=== PATIENT | male | born 1960 | race African-American/Black ===

== ENCOUNTER 2024-05-26 20:44 | Outpatient (REF) | payer MEDICARE, MEDICAID, SELFPAY ==
[2024-05-26 21:22] LABS: INR 4.85
== END 2024-05-26 20:45 | disposition home or self-care (01) ==
LOC: LAB 20:44
PROVIDERS: PCP Internal Medicine; Visit Provider Internal Medicine
DX: I50.32 Chronic diastolic (congestive) heart failure (principal)
CPT/HCPCS: 36415; 85610

== ENCOUNTER 2024-06-01 15:07 | Outpatient (REF) | payer MEDICARE, MEDICAID, SELFPAY ==
[2024-06-01 15:54] LABS: INR 1.37; Prothrombin Time 14.1 sec (9.0-11.6)
== END 2024-06-01 15:08 | disposition home or self-care (01) ==
LOC: LAB 15:07
PROVIDERS: PCP Internal Medicine; Visit Provider Internal Medicine
DX: I63.50 Cerebral infarction due to unspecified occlusion or stenosis of unspecified cerebral artery (principal)
CPT/HCPCS: 36415; 85610

== ENCOUNTER 2024-07-09 14:26 | Outpatient (REF) | payer MEDICARE, MEDICAID, SELFPAY ==
[2024-07-09 15:01] LABS: INR 1.04
== END 2024-07-09 14:27 | disposition home or self-care (01) ==
LOC: LAB 14:26
PROVIDERS: PCP Internal Medicine; Visit Provider Internal Medicine
DX: I63.50 Cerebral infarction due to unspecified occlusion or stenosis of unspecified cerebral artery (principal)
CPT/HCPCS: 36415; 85610

== ENCOUNTER 2024-07-12 13:07 | Outpatient (REF) | payer MEDICARE, MEDICAID, SELFPAY ==
[2024-07-12 13:42] LABS: INR 1.11; Prothrombin Time 11.6 sec (9.0-11.6)
== END 2024-07-12 13:08 | disposition home or self-care (01) ==
LOC: LAB 13:07
PROVIDERS: PCP Internal Medicine; Visit Provider Internal Medicine
DX: I63.50 Cerebral infarction due to unspecified occlusion or stenosis of unspecified cerebral artery (principal)
CPT/HCPCS: 36415; 85610

== ENCOUNTER 2024-08-06 12:17 | Outpatient (REF) | payer MEDICARE, MEDICAID, SELFPAY ==
[2024-08-06 12:48] LABS: INR 3.66; Prothrombin Time 34.1 sec (9.0-11.6)
== END 2024-08-06 12:18 | disposition home or self-care (01) ==
LOC: LAB 12:17
PROVIDERS: PCP Internal Medicine; Visit Provider Internal Medicine
DX: I63.50 Cerebral infarction due to unspecified occlusion or stenosis of unspecified cerebral artery (principal)
CPT/HCPCS: 36415; 85610

== ENCOUNTER 2024-08-18 14:12 | Outpatient (REF) | payer MEDICARE, MEDICAID, SELFPAY ==
[2024-08-18 14:42] LABS: INR 2.36
== END 2024-08-18 14:13 | disposition home or self-care (01) ==
LOC: LAB 14:12
PROVIDERS: PCP Internal Medicine; Visit Provider Internal Medicine
DX: I48.19 Other persistent atrial fibrillation (principal)
CPT/HCPCS: 36415; 85610

== ENCOUNTER 2024-08-20 11:48 | Outpatient (REF) | payer MEDICARE, MEDICAID, SELFPAY ==
--- OUTSIDE RECORDS SUMMARY | 2024-02-16 04:30 | XMS_ITS ---
Author Organization The [facility] in [place] Address [address] [place] [address] Care Team Providers Care Earth Moving Technician Name Role Phone Emanuel GRADY, Bryon Primary Care Provider Unavailab Andrew Vincent Unavailable [phone] REASON FOR VISIT 4 month f/u Encounters Encounter Location Date Provider Diagnosis [facility] [address] [address] 02/16/2024 Andrew Baptiste Plan Of Treatment No Information Progress Notes * PRINCESS Danny RDOB:1960 (63 yo M)Acc No.[id number]:02/16/2024 UNLOCKED PROGRESS NOTE Follow Up Patient: Herberth MEZAy Juanita Provider: Shameka Baptiste MD :1960 A ge:63 Y S ex:Male Date:02/16/2024 Address:[address] [place], [place] [address] Pcp:Bryon Castellanso MD Subjective: * Chief Complaints: * 1 . 4 month f/u. * Medical History: Objective: * Vitals: Assessment: Plan: * Treatment: * * Electronic signature of Andrew Baptiste MD, [id number] on 08/20/2024 at 11:53 AM EDT Sign off status: Pending Visit Status: N /S N/C (No Show/No Charge) * Provider: Shameka Baptiste MD Date: 1 04/17/2023 Generated for Printi ng/Faxing/eTransmitting on: 0 08/20/2024 11:53 AM EDT
--- OUTSIDE RECORDS SUMMARY | 2024-02-25 09:30 | XMS_ITS ---
Author Organization The [facility] in [place] Address [address] [place] [address] Care Team Providers Care Television News Producer Name Role Phone Emanuel GRADY, Bryon Primary Care Provider Unavailab Andrew Vincent Unavailable [phone] Encounters Encounter Location Date Provider Diagnosis [facility] [address] [place] [address] 02/25/2024 Andrew Baptiste Plan Of Treatment No Information Progress Notes * Danny SÁNCHEZ RDOB:1960 (63 yo M)Acc No.[id number]:02/25/2024 UNLOCKED PROGRESS NOTE Follow Up Patient: Herberth MEZAy Juanita Provider: Shameka Baptiste MD :1960 A ge:63 Y S ex:Male Date:02/25/2024 Address:[address] [place], [place] [id number] Pcp:Bryon Castellanos MD Subjective: * Chief Complaints: * * Medical History: Objective: * Vitals: Assessment: Plan: * Treatment: * * Electronic signature of Andrew Baptiste MD, [id number] on 08/20/2024 at 11:52 AM EDT Sign off status: Pending Visit Status: R /S (Rescheduled) * Provider: Shameka Baptiste MD Date: 1 04/27/2023 Generated for Printi ng/Faxing/eTransmitting on: 0 08/20/2024 11:52 AM EDT
--- OUTSIDE RECORDS SUMMARY | 2024-08-20 11:52 | XMS_ITS | Encounter Summary ---
Author Organization [facility] Address [address] [place] [address] Care Team Providers Care Truck Driver Rubbish Collector Name Role Phone Unavailable Primary Care Provider Unavailabl e Encounter Details Date Type Department Care Team (Late st Contact Info) Description 01/28/2024 Abstract [facility] [address] [place] [id number] Unallocated, Noms Provider, [address] [place] [address] Social History Tobacco Use Types Packs/Day Years Used Date Smoking Tobacco: Never Assessed Sex and Gender Information Value Date Recorded Sex Assigned at Not on file Legal Sex Male 3:32 PM EST Gender Identity Not on file Sexual Orientation Not on file documented as of this encounter Plan of Treatment Not on file documented as of this encounter Visit Diagnoses Not on filedocumented in this encounter
--- OUTSIDE RECORDS SUMMARY | 2024-08-20 11:52 | XMS_ITS | Encounter Summary ---
Author Organization [facility] Address [address] [place] [address] Care Team Providers Care Fairing Man Name Role Phone Unavailable Primary Care Provider Unavailabl e Encounter Details Date Type Department Care Team (Late st Contact Info) Description 06/28/2024 Abstract [facility] [address] [place] [address] Unallocated, Noms Provider, [address] [place] [address] Social History Tobacco Use Types [...]
--- OUTSIDE RECORDS SUMMARY | 2024-08-20 11:52 | XMS_ITS | Encounter Summary ---
Author Organization [facility] Address [address] [place] [address] Care Team Providers Care Ore Feeder Name Role Phone Unavailable Primary Care Provider Unavailabl e Encounter Details Date Type Department Care Team (Late st Contact Info) Description 12/31/2023 Clinisync Result Encounter [facility] External Department Unsolicited Provider, Generic External Data Social History Tobacco Use Types Packs/Day Years Used Date Smoking Tobacco: Never Assessed Sex and Gender Information Value Date Recorded Sex Assigned at Not on file Legal Sex Male 3:32 PM EST Gender Identity Not on file Sexual Orientation Not on file documented as of this encounter Plan of Treatment Not on file documented as of this encounter Procedures Procedure Name Priority Date/Time Associated Diagnosis Comments FL MODIFIED BARIUM SWALLOW W VIDEO 12/31/2023 3:15 PM EDT documented in this encounter Results * FL MODIFIED BARIUM SWALLOW W VIDEO (12/31/2023 3:15 PM EDT) Anatomical Region Laterality Modality Other 12/31/2023 3:15 PM EDT Narrative 12/31/2023 3:19 PM EDT EXAMINATION: MODIFIED BARIUM SWALLOW WAS PERFORMED IN CONJUNCTION WITH SPEECH PATHOLOGY SERVICES TECHNIQUE: Under fluoroscopic evaluation cineradiography/videoradiography recordings were performed in conjunction with the speech-language pathologist (HEALTH CARE FACILITY ADMINISTRATOR). Various liquid, solid and/or semi-solid barium preparations were used to assess swallowing function. FLUOROSCOPY DOSE AND TYPE: Radiation Exposure Index: DAP [id number], COMPARISON: None HISTORY: ORDERING SYSTEM PROVIDED HISTORY: Other tracheostomy complication (HCC) FINDINGS: [place] thick liquid: Given by teaspoon and straw. Spillage into the piriform sinuses but no laryngeal penetration or aspiration. Thin liquid: Given by straw there is trace laryngeal penetration but no aspiration. Minimal pooling in vallecula and piriform sinuses. Puree, soft solid, cookie: No laryngeal penetration or aspiration. IMPRESSION: Trace laryngeal penetration of thin liquid when given by straw but no aspiration. Other consistencies well-tolerated. Please see separate speech pathology report for full discussion of findings and recommendations. Interpreted by: Bryon Coto MD Signed by: Bryon Coto MD 12/31/23 Final result Procedure Note Radiology, Radiologist, - 12/31/2023 EXAMINATION: MODIFIED BARIUM SWALLOW WAS PERFORMED IN CONJUNCTION WITH SPEECHPATHOLOGY SERVICES TECHNIQUE: Under fluoroscopic evaluation cineradiography/videoradiographyrecordings were performed in conjunction with the speech-language pathologist(HEALTH CARE FACILITY ADMINISTRATOR). Various liquid, solid and/or semi-solid barium preparations were used to assess swallowing function. FLUOROSCOPY DOSE AND TYPE: Radiation Exposure Index: DAP 71.899fYjjl0, COMPARISON: None HISTORY: ORDERING SYSTEM PROVIDED HISTORY: Other tracheostomy complication (HCC) FINDINGS: [place] thick liquid: Given by teaspoon and straw. Spillage into thepiriform sinuses but no laryngeal penetration or aspiration. Thin liquid: Given by straw there is trace laryngeal penetration but no aspiration. Minimal pooling in vallecula and piriform sinuses. Puree, soft solid, cookie: No laryngeal penetration or aspiration. IMPRESSION: Trace laryngeal penetration of thin liquid when given by straw but no aspiration. Other consistencies well-tolerated. Please see separate speech pathology report for full discussion offindings and recommendations. Interpreted by: Bryon Coto MD Signed by: Bryon Coto MD 12/31/23 Final result Generic External Data Provider [facility] Final Result documented in this encounter Visit Diagnoses Not on filedocumented in this encounter
--- OUTSIDE RECORDS SUMMARY | 2024-08-20 11:52 | XMS_ITS | Encounter Summary ---
Author Organization [facility] Address [address] [place] [address] Care Team Providers Care Rating Clerk Name Role Phone Unavailable Primary Care Provider Unavailabl e Encounter Details Date Type Department Care Team (Late st Contact Info) Description 01/01/2024 Abstract [facility] [address] [place] [address] Unallocated, Noms Provider, [address] [place] [address] Social History Tobacco Use Types [...]
--- OUTSIDE RECORDS SUMMARY | 2024-08-20 11:52 | XMS_ITS | Encounter Summary ---
Author Organization [facility] Address [address] [place] [address] Care Team Providers Care Management Information Systems Director Name Role Phone Unavailable Primary Care Provider Unavailabl e Encounter Details Date Type Department Care Team (Late st Contact Info) Description 05/05/2024 Abstract [facility] [address] [place] [address] Unallocated, Noms Provider, [address] [place] [address] Social History Tobacco Use Types [...]
--- OUTSIDE RECORDS SUMMARY | 2024-08-20 11:52 | XMS_ITS | Encounter Summary ---
Author Organization [facility] Address [address] [place] [address] Care Team Providers Care Tank Insulator Rubber Name Role Phone Unavailable Primary Care Provider Unavailabl e Encounter Details Date Type Department Care Team (Late st Contact Info) Description 10/08/2023 Abstract [facility] 112 [facility] 110 [place] [address] Bryon Castellanos MD 112 [facility] 110 [place], [place] [id number] Social History Tobacco Use Types Packs/Day Years [...]
--- OUTSIDE RECORDS SUMMARY | 2024-08-20 11:52 | XMS_ITS | Encounter Summary ---
Author Organization [facility] Address [address] [place] [address] Care Team Providers Care Digital Retoucher Name Role Phone Unavailable Primary Care Provider Unavailabl e Encounter Details Date Type Department Care Team (Late st Contact Info) Description 01/28/2024 Abstract [facility] [address] [place] [address] Unallocated, Noms Provider, [address] [place] [address] Social History Tobacco Use Types [...]
--- OUTSIDE RECORDS SUMMARY | 2024-08-20 11:52 | XMS_ITS | Encounter Summary ---
Author Organization [facility] Address [address] [place] [address] Care Team Providers Care Frame Table Operator Name Role Phone Unavailable Primary Care Provider Unavailabl e Encounter Details Date Type Department Care Team (Late st Contact Info) Description 06/16/2023 Orders Only [facility] [address] [facility] 110 [place] [address] Bryon Castellanos MD [address] [facility] 110 [place], [place] [address] Social History Tobacco Use Types Packs/Day Years [...] Procedure Name Priority Date/Time Associated Diagnosis Comments XR CHEST 2 VIEWS Routine 06/16/2023 8:07 AM EDT documented in this encounter Results * XR chest 2 views (06/16/2023 8:07 AM EDT) Anatomical Region Laterality Modality Chest Radiographic Shayna ging us Bryon Castellanos MD IMG XR PROCEDURES Final Result documented in this encounter Visit Diagnoses Not on filedocumented in this encounter
--- OUTSIDE RECORDS SUMMARY | 2024-08-20 11:52 | XMS_ITS | Encounter Summary ---
Author Organization [facility] Address [address] [place] [address] Care Team Providers Care Steam Clean Machine Operator Name Role Phone Unavailable Primary Care Provider Unavailabl e Encounter Details Date Type Department Care Team (Late st Contact Info) Description 08/18/2024 Clinisync Result Encounter [facility] External Department Unsolicited Bryon Castellanos MD 112 [facility] 110 [place] [address] Social History Tobacco Use Types Packs/Day Years [...] Procedure Name Priority Date/Time Associated Diagnosis Comments [facility] PROTHROMBIN TIME INR W/O COUM Routine 08/18/2024 1:35 PM EDT documented in this encounter Results * (ABNORMAL) [facility] PROTHROMBIN TIME INR W/O COUM (08/18/2024 1:35 PM EDT) PROTHROMBIN TIME 23.0(H) 9.0 - 11.6 sec TBH TBH INR 2.36 TBH Comment: DESIRED INR: 2.0-3.0 CONDITIONS NOT LISTED BELOW 2.5-3.5 FOR PROSTHETIC HEART VALVE REPLACEMENT 2.5-3.5 RECURRENT THROMBOSIS 08/18/2024 1:35 PM EDT 08/18/2024 2:24 PM EDT Narrative [facility] - 08/18/2024 4:21 PM EDT [facility] DROP OFF us Bryon Castellanos MD [facility] Final Result [facility] documented in this encounter Visit Diagnoses Not on filedocumented in this encounter
--- OUTSIDE RECORDS SUMMARY | 2024-08-20 11:52 | XMS_ITS | Encounter Summary ---
Author Organization [facility] Address [address] [place] [address] Care Team Providers Care Mini Baccarat Dealer Name Role Phone Unavailable Primary Care Provider Unavailabl e Encounter Details Date Type Department Care Team (Late st Contact Info) Description 08/06/2024 Clinisync Result Encounter [facility] External Department Unsolicited Bryon Castellanos MD 112 [facility] 110 [place] [address] Social History Tobacco Use Types Packs/Day Years [...] [facility] PROTHROMBIN TIME INR W/O COUM Routine 08/06/2024 11:20 AM EDT documented in this encounter Results * (ABNORMAL) [facility] PROTHROMBIN TIME INR W/O COUM (08/06/2024 11:20 AM EDT) PROTHROMBIN TIME 34.1(H) 9.0 - 11.6 sec TBH TBH INR 3.66 TBH Comment: DESIRED INR: 2.0-3.0 CONDITIONS NOT LISTED BELOW 2.5-3.5 FOR PROSTHETIC HEART VALVE REPLACEMENT 2.5-3.5 RECURRENT THROMBOSIS 08/06/2024 11:2 0 AM EDT 08/06/2024 12:24 PM EDT Narrative [facility] - 08/06/2024 12:49 PM EDT [facility] DROP OFF us Bryon Castellanos MD [facility] Final [facility] documented in this encounter Visit Diagnoses Not on filedocumented in this encounter
--- OUTSIDE RECORDS SUMMARY | 2024-08-20 11:52 | XMS_ITS | Encounter Summary ---
Author Organization Josse Ordoñez Diannacarlos alberto [facility] Address [address] [place] [address] Care Team Providers Care Manager Philosophy Name Role Phone Bryon Castellanos MD Primary Care Provider [phone] Reason for Visit * Reason Onset Date Comments OTHER 07/28/2024 Encounter Details Date Type Department Care Team (Late st Contact Info) Description 07/28/2024 Telephone [facility] [address] [place] [address] Johny Abad MD [address] [id number] OTHER Social History Tobacco Use Types Packs/Day Years Used Date Smoking Tobacco: Former Cigarettes Passive Smoke Exposure: Never Smokeless Tobacco: Never Alcohol Use Standard Drinks/Week Comments Not Currently 0 (1 standard drink = 0.6 oz pur e alcohol) [facility] Utilities Answer Date Recorded In the past 12 months has [facility] electric, gas, oil, or water [employer] in [employer] threatened to shut off services in your home? No 10/02/2023 Hunger Vital Sign Answer Date Recorded Within the past 12 months, y ou worried that your food would run out before you got the money to buy more. Never true 10/02/19 24 Within the past 12 months, t he food you bought just didn't last and you didn't have money to get more. Never true 10/02/2023 PRAPARE - Transportation Answer Date Re corded In the past 12 months, has l ack of transportation kept you from medical appointments or from getting medications? No 09/21 In the past 12 months, has l ack of transportation kept you from meetings, work, or from getting things needed for daily living? No 10/02/2023 Housing Stability Vital Sign Answer Marquise e Recorded In the last 12 months, was t here a time when you were not able to pay the mortgage or rent on time? No 10/02/2023 In the last 12 months, how many places have you lived? 1 10/02/2023 In the last 12 months, was t here a time when you did not have a steady place to sleep or slept in a group home (including now)? No 10/02/2023 Interpersonal Safety ([facility] HRSN) Answer Date Recorded How often does anyone, frances florez family and friends, physically hurt you? Patient unable to answer 04/18/2023 How often does anyone, frances florez family and friends, scream or curse at you? Not on file 04/18/2023 How often does anyone, frances florez family and friends, insult or talk down to you? Not on file 04/18/2023 How often does anyone, frances florez family and friends, threaten you with harm? Not on file 04/18/2023 Food Insecurity Answer Date Recorded Within the past 12 months, y ou worried that your food would run out before you got the money to buy more. 1 10/02/2023 Within the past 12 months, t he food you bought just didn't last and you didn't have money to get more. 1 10/02/2023 Interpersonal Safety Domain Source: IP Abuse Scr eening Answer Date Recorded Physical abuse Denies 07/26/2024 Verbal abuse Denies 07/26/2024 Emotional abuse Denies 07/26/2024 Financial abuse Denies 07/26/2024 Sexual abuse Denies 07/26/2024 Sex and Gender Information Value Date Recorded Sex Assigned at Not on file Legal Sex Male 6:01 PM EST Gender Identity Not on file Sexual Orientation Not on file documented as of this encounter Plan of Treatment Upcoming Encounters Date Type Department Care Team (Latest Contact Info) Description 09/08/2024 12:30 PM EDT Hospital Encounter [facility] [address] [place] [address] Johny Abad MD [address] [address] 09/08/2024 12:30 PM EDT - 09/08/2024 1:[address] [facility] [address] [place] [address] Johny Abad MD 2222 [facility]800 [place] [address] DIRECT LARYNGOSCOPY Scheduled Procedures Name Priority Associated Diagnoses Date/Ti me LARYNGOSCOPY MICRO Tracheostomy dependent (HCC) 09/08/2024 12:30 PM EDT TRACHEOTOMY Tracheostomy dependent (HCC) 09/08/2024 12:30 PM EDT documented as of this encounter Visit Diagnoses Not on filedocumented in this encounter Additional Health Concerns Infection Onset Date 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
--- OUTSIDE RECORDS SUMMARY | 2024-08-20 11:52 | XMS_ITS | Encounter Summary ---
Author Organization [facility] Address [address] [place] [address] Care Team Providers Care Fiber Product Cutting Machine Operator Name Role Phone Unavailable Primary Care Provider Unavailabl e Encounter Details Date Type Department Care Team (Late st Contact Info) Description 06/29/2024 Abstract [facility] [address] [place] [address] Unallocated, Noms Provider, [address] [place] [address] Social History Tobacco Use Types [...]
--- OUTSIDE RECORDS SUMMARY | 2024-08-20 11:52 | XMS_ITS | Encounter Summary ---
Author Organization [facility] Address [address] [place] [address] Care Team Providers Care Gelatin Maker Utility Name Role Phone Unavailable Primary Care Provider Unavailabl e Encounter Details Date Type Department Care Team (Late st Contact Info) Description 06/09/2023 Abstract [facility] [address] [facility] 110 [place] [address] Rao Browning MD 112 [facility] 110 [place], [place] [id number] Social History Tobacco Use Types Packs/Day Years [...]
--- OUTSIDE RECORDS SUMMARY | 2024-08-20 11:52 | XMS_ITS | Encounter Summary ---
Author Organization [facility] Address [address] [place] [address] Care Team Providers Care Quality Control Tech Raw Materials Name Role Phone Unavailable Primary Care Provider Unavailabl e Encounter Details Date Type Department Care Team (Late st Contact Info) Description 06/28/2024 Abstract [facility] [address] [place] [address] Unallocated, Noms Provider, [address] [place] [address] Social History Tobacco Use Types [...]
--- OUTSIDE RECORDS SUMMARY | 2024-08-20 11:52 | XMS_ITS | Clinical Summary ---
Author Organization [facility] Address [address] [place] [address] Care Team Providers Care Multimedia Editor Name Role Phone Unavailable Primary Care Provider Unavailabl e Encounters Date Type Department Care Team Description 08/18/2024 Clinisync Result Encounter NOMS External Department Unsolicited Bryon Castellanos MD 08/06/2024 Clinisync Result Encounter NOMS External Department Unsolicited Bryon Castellanos MD 07/12/2024 Clinisync Result Encounter NOMS External Department Unsolicited Bryon Castellanos MD 07/09/2024 Clinisync Result Encounter NOMS External Department Unsolicited Bryon Castellanos MD 06/29/2024 Abstract [facility] [address] [facility] [address] [place] [phone] Unallocated, Noms MD Christy 06/28/2024 Abstract [facility] [address] [facility] [address] [place] [address] Unallocated, Noms MD Christy 06/28/2024 Abstract [facility] [address] [facility] [address] [place] [address] Unallocated, Noms ProviderMD 06/28/2024 Abstract [facility] [address] [facility] [address] [place] [address] Unallocated, Noms MD Christy 06/01/2024 Clinisync Result Encounter NOMS External Department Unsolicited Bryon Castellanos MD 05/26/2024 Clinisync Result Encounter NOMS External Department Unsolicited Bryon Castellanos MD from Last 3 Months Social History Tobacco Use Types Packs/Day Years Used Date Smoking Tobacco: Never Assessed Sex and Gender Information Value Date Recorded Sex Assigned at Not on file Legal Sex Male 3:32 PM EST Gender Identity Not on file Sexual Orientation Not on file Plan of Treatment Not on file Procedures Procedure Name Priority Date/Time Associated Diagnosis Comments [facility] PROTHROMBIN TIME INR W/O COUM Routine 08/18/2024 1:35 PM EDT [facility] PROTHROMBIN TIME INR W/O COUM Routine 08/06/2024 11:20 AM EDT [facility] PROTHROMBIN TIME INR W/O COUM Routine 07/12/2024 11:57 AM EDT [facility] PROTHROMBIN TIME INR W/O COUM Routine 07/09/2024 1:34 PM EDT [facility] PROTHROMBIN TIME INR W/O COUM Routine 06/01/2024 1:37 PM EDT [facility] PROTHROMBIN TIME INR W/O COUM Routine 05/26/2024 8:04 PM EST from Last 3 Months Results * (ABNORMAL) [facility] PROTHROMBIN TIME INR W/O COUM (08/18/2024 1:35 PM EDT) Only the most recent of6 resultswithin the time period is included. PROTHROMBIN TIME 23.0(H) 9.0 - 11.6 sec TBH TBH INR 2.36 TBH Comment: DESIRED INR: 2.0-3.0 CONDITIONS NOT LISTED BELOW 2.5-3.5 FOR PROSTHETIC HEART VALVE REPLACEMENT 2.5-3.5 RECURRENT THROMBOSIS 08/18/2024 1:35 PM EDT 08/18/2024 2:24 PM EDT Narrative CLINISYNC - 08/18/2024 4:21 PM EDT CITIZEN OF [facility] [facility] DROP OFF us Bryon Castellanos MD CLINISYDESTINI Final Result CLINIS[facility] TB from Last 3 Months Insurance MEDICAID [place] [employer] MEDICARE ADVANTAGE
--- OUTSIDE RECORDS SUMMARY | 2024-08-20 11:52 | XMS_ITS | Encounter Summary ---
Author Organization [facility] Address [address] [place] [address] Care Team Providers Care Extractions Technician Name Role Phone Unavailable Primary Care Provider Unavailabl e Encounter Details Date Type Department Care Team (Late st Contact Info) Description 10/13/2023 Abstract [facility] 112 [facility] [address] [place] [address] Bryon Castellanos MD 112 [facility] [address] [place], [place] [id number] Social History Tobacco Use Types Packs/Day Years [...]
--- OUTSIDE RECORDS SUMMARY | 2024-08-20 11:52 | XMS_ITS | Clinical Summary ---
Author Organization [facility] Address [address] [place] [address] Care Team Providers Care Foxing Painter Name Role Phone Bryon Castellanos MD Primary Care Provider [phone] Allergies No known active allergies Medications acetaminophen (TYLENOL) 325 MG tablet 2 tablets by PEG Tube route every 4 hours as needed for Pain or Fever 05/14/19 24 Active Additional Information Patient taking differently:650 mgOralEVERY 4 HOURS PRN, Pain, Fever, Reported on 01/26/2024 doxazosin (CARDURA) 2 MG tablet Take 1 tablet by mouth at bedtime 05/14/19 24 Active Additional Information Patient taking differently: 4 mgOral Nightly,Hold SBP< 100, Reported on 07/26/2024 polyethylene glycol (GLYCOLAX) 17 g packet 1 packet by Per G Tube route daily as needed for Constipation 05/14/19 24 Active Additional Information Patient taking differently:17 gOral DAILY, Reported on 07/26/2024 thiamine mononitrate (THIAMINE) 100 MG tablet Take 1 tablet by mouth daily Give through PEG tube 05/14/19 24 Active Additional Information Patient taking differently:100 mg Oral DAILY,(No instructions reported), Reported on 07/26/2024 Vitamin D (CHOLECALCIFERO L) 25 MCG (1000 UT) TABS tablet 5 tablets by PEG Tube route daily 05/14/19 24 Active Additional Information Patient taking differently:5,000 UnitsOralDAILY, Reported on 07/26/2024 Handicap Placard MISC by Does not apply route Duration: 1 year / Dx: Stroke 1 each 05/14/19 Active ipratropium 0.5 mg-albuterol 2.5 mg (DUONEB) 0.5-2.5 (3) MG/3ML SOLN nebulizer solution Inhale 3 mLs into the lungs every 4 hours as needed Active aspirin 81 MG EC tablet 1 tablet daily Activ e cimetidine (TAGAMET) 300 MG tablet Take 1 tablet by mouth 2 times daily For inappropriate sexual behavior. 09/29/19 24 Active ALPRAZolam (XANAX) 0.5 MG tablet Take 1 tablet by mouth in the morning, at noon, and at bedtime. Stop date 10/15/2023 Active bisacodyl 5 MG EC tablet Use as instructed from your physicians office for your colonoscopy prep. 4 tablet 12/24/19 24 Active furosemide (LASIX) 20 MG tablet Take 1 tablet by mouth 2 times daily Active traMADol (ULTRAM) 50 MG tablet Take 1 tablet by mouth every 6 hours as needed for Pain. Max Daily Amount: 200 mg Active citalopram (CELEXA) 10 MG tablet Take 2 tablets by mouth daily Active levalbuterol (XOPENEX) 1.25 MG/3ML nebulizer solution Take 3 mLs by nebulization every 6 hours as needed for Wheezing Active pantoprazole sodium (PROTONIX) 40 MG PACK packet Take 1 packet by mouth 2 times daily (before meals) Active warfarin (COUMADIN) 6 MG tablet Take 7 mg by mouth at bedtime Active magnesium oxide (MAG-OX) 400 (240 Mg) MG tablet 1 tablet by Per G Tube route daily 05/14/19 24 025 Discontin ued(Thera py completed ) baclofen (LIORESAL) 5 MG tablet 1 tablet by PEG Tube route 3 times daily as needed (muscle spasms) 05/14/19 24 025 Discontin ued(Thera py completed ) GUAIFENESIN ER PO Take 800 mg by mouth every 12 hours as needed (mucus) 025 Discontin ued(Thera py completed ) SENNA PO Take 1 tablet by mouth at bedtime 025 Discontin ued(Thera py completed ) amLODIPine (NORVASC) 10 MG tablet Take 1 tablet by mouth daily 12/12/19 24 025 Discontin ued(Thera py completed ) ipratropium 0.5 mg-albuterol 2.5 mg (DUONEB) 0.5-2.5 (3) MG/3ML SOLN nebulizer solution Inhale 3 mLs into the lungs in the morning, at noon, and at bedtime trach 025 Discontin ued(Thera py completed ) Active Problems Problem Noted Date Diagnosed Date 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 Chronic respiratory failure with hypoxia 024 Tracheal stenosis following tracheostomy 024 Glottic edema 10/02/2023 Other tracheostomy complication 10/02/2023 Right hemiparesis 05/12/2023 Depression 04/26/2023 Urinary tract infection without hematuria 2023 Hemiplegia and hemiparesis f ollowing cerebral infarction affecting right dominant side 04/18/2023 Fever 03/16/2023 Constipation 03/15/2023 Pneumonia of right lower lobe due to infectious organism 03/15/2023 S/P percutaneous endoscopic gastrostomy (PEG) tube placement 03/15/2023 Oropharyngeal dysphagia 03/14/2023 Copious oral secretions 03/12/2023 Chronic hyponatremia 03/11/2023 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 Acute on chronic respiratory failure with hypoxia and hypercapnia 03/10/2023 Laryngeal edema 03/04/2023 Stridor 03/04/2023 Acute respiratory failure with hypoxia and hyper capnia 03/04/2023 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 Intracerebral hemorrhage, nontraumatic 3 Encounters Date Type Department Care Team Description 07/28/2024 Telephone [facility] [address] [place] [address] Johny Abad MD OTHER 07/27/2024 11:59 PM EDT Anesthesia Event [facility] [address] [place], [place] [id number] Chung Tony RN 07/26/2024 Travel from Last 3 Months Family History Medical History Relation Name Comments No Known Problems Father Cancer Maternal Grandmother No Known Problems Mother Relation Name Status Comments Father Maternal Grandmother Mother Social History Tobacco Use Types Packs/Day Years Used Date Smoking Tobacco: Former Cigarettes Passive Smoke Exposure: Never Smokeless Tobacco: Never Tobacco Cessation:Counseling Given: Not Answered Alcohol Use Standard Drinks/Week Comments Not Currently 0 (1 standard drink = 0.6 oz pur e alcohol) [facility] Utilities Answer Date Recorded In the past 12 months has th e electric, gas, oil, or water company threatened to shut off services in your [...] place to sleep or slept in a fpc (including now)? No 10/02/2023 Interpersonal Safety ([facility] HRSN) Answer Date Recorded How often does [...] on file Sexual Orientation Not on file Last Filed Vital Signs Vital Sign Reading Time Taken Comments Blood Pressure 99/61 01/28/2024 4:00 PM EST Pulse 69 01/28/2024 4:00 PM EST Temperature 36 C (96.8 F) 01/28/2024 4:00 PM EST Respiratory Rate 16 01/28/2024 4:00 PM EST Oxygen Saturation 100% 01/28/2024 4:00 PM EST Inhaled Oxygen Concentration - - Weight 99.8 kg (220 lb) 01/28/2024 10:25 AM EST Height 175.3 cm (5' 9 ) 01/28/2024 10:25 AM EST Body Mass Index 32.49 01/28/2024 10:25 AM EST Plan of Treatment Upcoming Encounters Date Type Department Care Team (Latest Contact Info) Description 09/08/2024 12:30 PM EDT Hospital Encounter [address] [address] Johny Abad MD [address] [address] 09/08/2024 12:30 PM EDT - 09/08/2024 1:50 PM EDT Surgery [facility] [address] [place] [address] [place] [address] [place] [address] DIRECT LARYNGOSCOPY Scheduled Procedures Name Priority Associated Diagnoses Date/Ti me LARYNGOSCOPY MICRO Tracheostomy dependent (HCC) 09/08/2024 12:30 PM EDT TRACHEOTOMY Tracheostomy dependent (HCC) 09/08/2024 12:30 PM EDT Health Maintenance Due Date Last Done Comments Depression Monitoring 1973 HIV screen 1976 Hepatitis C screen 09/28/1979 Pneumococcal 50+ years Vacci ne (1 of 2 - PCV) 1980 Colonoscopy 2006 Colorectal Cancer Screen 2006 FIT/FOBT: Average risk 2006 Fecal-DNA (Cologuard): [place] risk 2006 Sigmoidoscopy/CT colonography 2006 Shingles vaccine (1 of 2) 09/28/2011 Respiratory Syncytial Virus (RSV) or age 60 yrs+ (1 - Risk 60-74 years 1-dose series) 2021 COVID-19 Vaccine ( - 2023-2 5 season) 2023 Annual Wellness Visit (Medicare Advantage) 03/24/2024 Flu vaccine (Season Ended) 10/22/202401/27, 01/17/2014 Diabetes screen 03/21/2026 03/21/2023, 03/03/2023 DTaP/Tdap/Td vaccine (2 - Td or Tdap) 03/02/2027 03/02/2017 Lipids 03/05/2028 03/05/2023, 03/03/2023 Hepatitis A vaccine Aged Out No longe r eligible based on patient's age to complete this topic Hepatitis B vaccine Aged Out No longe r eligible based on patient's age to complete this topic Hib vaccine Aged Out No longer eligi ble based on patient's age to complete this topic Meningococcal (ACWY) vaccine Aged Out No longer eligible based on patient's age to complete this topic Meningococcal B vaccine Aged Out No l onger eligible based on patient's age to complete this topic Polio vaccine Aged Out No longer elig ible based on patient's age to complete this topic Procedures Procedure Name Priority Date/Time Associated Diagnosis Comments HEMOGLOBIN A1C Routine 03/21/2023 3:30 AM EST LIPID PANEL [employer] Label Print 03/05/2023 5:37 AM EST from Last 3 Months or Most Recently Relevant to Health Maintenance Results * Hemoglobin A1C (03/21/2023 3:30 AM EST) Hemoglobin A1C 5.4 4.0 - 6.0 % 03/21/2023 3:30 AM EST [facility] Estimated Avg Glucose 108 mg/dL 03/21/2023 3:30 AM EST [facility] Comment: The ADA and AACC recommend providing the estimated average glucose result to permit better patient understanding of their HBA1c result. 03/21/2023 3:30 AM EST us Lex North MD CHEMISTRY ORDERABLES Iva l Result [facility] [address] [facility] [place] [address], [facility] [phone] [employer] [address] [id number], [facility] [phone] * Lipid Panel (03/05/2023 5:37 AM EST) Cholesterol 183 <200 mg/dL 03/05/2023 5:37 AM EST [facility] Comment: Cholesterol Guidelines: <200 Desirable 200-240 Borderline >240 Undesirable HDL 58 >40 mg/dL 03/05/2023 5:37 AM EST [employer] Comment: HDL Guidelines: <40 Undesirable 40-59 Borderline >59 Desirable LDL Cholesterol 110 0 - 130 mg/dL 03/05/2023 5:37 AM EST [employer] Comment: LDL Guidelines: <100 Desirable 100-129 Near to/above Desirable 130-159 Borderline >159 Undesirable Direct (measured) LDL and calculated LDL are not interchangeable tests. Chol/HDL Ratio 3.2 <5 03/05/2023 5:37 AM EST [employer] Comment: Triglycerides 73 <150 mg/dL 03/05/2023 5:37 AM EST [employer] Comment: Triglyceride Guidelines: <150 Desirable 150-199 Borderline 200-499 High >499 Very high Based on AHA Guidelines for fasting triglyceride, December 2011. Blood BLOOD SPECIMEN / Unknown 03/05/2023 5:37 AM EST 03/05/2023 5:37 AM EST us Harriett Swift DO CHEMISTRY ORDERABLES Final Res ult [place] [address], [facility] [phone] from Last 3 Months or Most Recently Relevant to Health Maintenance Additional Health Concerns Infection Onset Date Last Indicated MRSA Comment:Nasal- 09/202303/13/2023 10/02/2023 Insurance [facility] [place]ICARE [place] [facility] MEDICARE on file [facility] MEDICARE on file [place] [facility] MEDICARE on file [facility] MEDICARE on [place] [facility] [place] [address] [facility] [place] [id number] Advance Directives * Full Code (Latest Code Status on File) Date Activated Date Inactivated Comments 10/02/2023 1:41 PM 10/08/2023 1:26 PM * Full Code Date Activated Date Inactivated Comments 04/18/2023 4:08 PM 05/14/2023 8:[address] [facility] as per acute but confirm with patient/family * Full Code Date Activated Date Inactivated Comments 03/03/2023 2:39 PM 03/20/2023 8:56 PM * Full Code Date Activated Date Inactivated Comments 03/03/2023 2:26 PM 03/03/2023 2:39 PM * Full Code Date Activated Date Inactivated Comments 03/03/2023 2:26 PM 03/03/2023 2:26 PM Care Teams Foxing Painter Relationship Specialty Start Date End Date Bryon Castellanos MD [address] [facility] [address] [place] [address] PCP - General Internal Medicine 10/07/23
--- OUTSIDE RECORDS SUMMARY | 2024-08-20 11:52 | XMS_ITS | Encounter Summary ---
Author Organization [facility] Address [address] [place] [address] Care Team Providers Care International Representative Name Role Phone Unavailable Primary Care Provider Unavailabl e Encounter Details Date Type Department Care Team (Late st Contact Info) Description 06/04/2023 External Result Encounter [facility] [address] [facility] [address] [place] [phone] Bryon Castellanos MD [address] [facility] [address] [place], [place] [id number] Social History Tobacco Use Types Packs/Day Years [...] Procedure Name Priority Date/Time Associated Diagnosis Comments SWALLOW MOTILITY FUNCTION 06/04/2023 1:02 PM EDT documented in this encounter Results * SWALLOW MOTILITY FUNCTION (06/04/2023 1:02 PM EDT) Anatomical Region Laterality Modality Radiographic Shayna ging 06/04/2023 1:02 PM EDT Narrative 06/04/2023 1:01 PM EDT THIS EXAM WAS PERFORMED AT [facility] ([place], [place]) CLINICAL INFORMATION: Oropharyngeal dysphagia TECHNIQUE: FL SWALLOW MOTILITY FUNCTION Evaluation the pharynx was obtained in conjunction with speech pathology. Patient swallowed substances of various consistency in conjunction with barium. There is deep laryngeal penetration with nectar thickened liquids. Aspiration appreciated with thin liquids. Patient. Remainder the substances without difficulty. 1 minute 20 seconds fluoroscopy time utilized. 8 images acquired. Cumulative fluoroscopic dose air Kerma: 4.4 mGy. IMPRESSION: Aspiration with thin liquids and deep laryngeal penetration with nectar thickened liquids. Finalized by Dakota Singleton MD on 06/04/2023 1:01 PM Procedure Note Radiology, Radiologist, MD - 06/04/2023 THIS EXAM WAS PERFORMED AT [facility] ([place], [place]) CLINICAL INFORMATION: Oropharyngeal dysphagia TECHNIQUE: FL SWALLOW MOTILITY FUNCTION Evaluation the pharynx was obtained in conjunction with speech pathology.Patient swallowed substances of various consistency in conjunction withbarium. There is deep laryngeal penetration with nectar thickenedliquids. Aspiration appreciated with thin liquids. Patient. Remainderthe substances without difficulty. 1 minute 20 seconds fluoroscopy timeutilized. 8 images acquired. Cumulative fluoroscopic dose air Kerma: 4.4mGy. IMPRESSION: Aspiration with thin liquids and deep laryngeal penetration with nectarthickened liquids. Finalized by Dakota Singleton MD on 06/04/2023 1:01 PM Bryon Castellanos MD IMG XR PROCEDURES Final Result documented in this encounter Visit Diagnoses Not on filedocumented in this encounter
--- OUTSIDE RECORDS SUMMARY | 2024-08-20 11:52 | XMS_ITS | Encounter Summary ---
Author Organization [facility] Address [address] [place] [address] Care Team Providers Care Materials And Processes Manager Name Role Phone Unavailable Primary Care Provider Unavailabl e Encounter Details Date Type Department Care Team (Late st Contact Info) Description 06/28/2024 Abstract [facility] [address] [facility] [address] [place] [phone] Unallocated, Noms Provider, [address] [place] [address] Social History Tobacco Use Types [...]
--- OUTSIDE RECORDS SUMMARY | 2024-08-20 11:53 | XMS_ITS | Encounter Summary ---
Author Organization [facility] Address [address] [place] [address] Care Team Providers Care Tuber Helper Name Role Phone Unavailable Primary Care Provider Unavailabl e Encounter Details Date Type Department Care Team (Late st Contact Info) Description 04/02/2024 Abstract [facility] [address] [facility] [address] [place] [phone] Unallocated, Noms Provider, [address] [place] [address] Social History Tobacco Use Types [...]
--- OUTSIDE RECORDS SUMMARY | 2024-08-20 11:53 | XMS_ITS | Clinical Summary ---
Author Organization [facility] Address [address] [place] [address] Phone Care Team Providers Care Insulation Sprayer Name Role Phone Unavailable Primary Care Provider Unavailabl e Allergies No known active allergies Medications acetaminophen (TYLENOL) 325 MG tablet Administer 2 tablets (650 mg total) per tube every 4 (four) hours as needed for Temp > or equal to 101F (38.3C), mild pain or headaches. 4 Active amLODIPine (NORVASC) 10 MG tablet Administer 1 tablet (10 mg total) per tube in the morning. 4 Active bisacodyl (DULCOLAX) 10 MG suppository Insert 1 suppository (10 mg total) into the rectum daily as needed for constipation. 4 Active cholecalciferol (VITAMIN D3) 125 MCG (5000 UT) tablet tablet Administer 1 tablet (5,000 Units total) per tube in the morning. 4 Active citalopram (CeleXA) 20 MG tablet Administer 1 tablet (20 mg total) per tube in the morning. 4 Active enoxaparin (LOVENOX) 40 MG/0.4ML solution prefilled syringeIndicatio ns:Deep Vein Thrombosis Prophylaxis Inject 0.4 mL (40 mg total) under the skin daily Indications: Treatment to Prevent Deep Vein Thrombosis. 4 Active famotidine (PEPCID) 20 MG tablet Administer 1 tablet (20 mg total) per tube in the morning and 1 tablet (20 mg total) before bedtime. 4 Active ipratropium-albu terol (DUO-NEB) 0.5-2.5 mg/3 mL nebulizer Inhale 3 mL Every 6 hours as needed. for wheezing. 4 Active labetalol (NORMODYNE) 200 MG tablet Administer 1 tablet (200 mg total) per tube every 8 (eight) hours. 4 Active magnesium oxide 400 (240-250 Mg) MG tablet Administer 1 tablet (400 mg total) per tube in the morning. 4 Active polyethylene glycol (MIRALAX) 17 g packet Administer 17 g per tube in the morning. 4 Active senna (SENOKOT) 8.6 MG tablet Administer 1 tablet (8.6 mg total) per tube nightly. 4 Active silodosin (RAPAFLO) 4 MG capsule capsule Administer 2 capsules (8 mg total) per tube nightly. 4 Active thiamine 100 MG tablet Administer 1 tablet (100 mg total) per tube in the morning. 4 Active oxyCODONE (ROXICODONE) 10 MG tabletIndication s:Acute Pain Administer 1 tablet (10 mg total) per tube every 6 (six) hours as needed for severe pain Indications: Acute Pain. Max Daily Amount: 40 mg 12 tablet 4 Active oxyCODONE (ROXICODONE) 5 MG immediate release tabletIndication s:Acute Pain Administer 1 tablet (5 mg total) per tube every 6 (six) hours as needed for moderate pain Indications: Acute Pain. 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 Acute hypoxemic and hypercapnic respiratory fail ure 03/04/2023 Edema of larynx 03/04/2023 Intrapontine hemorrhage 03/04/2023 Stridor 03/04/2023 Spontaneous cerebral hemorrhage 03/03/2023 Immunizations Immunization Administration Dates Next Due Pfizer SARS-CoV-2 Vaccination 03/20/2023(Deferre d: Not available - NA) Family History Medical History Relation Name Comments No Known Problems Father No Known Problems Mother Relation Name Status Comments Father Mother Social History Tobacco Use Types Packs/Day Years Used Date Smoking Tobacco: Every Day Cigarettes Smokeless Tobacco: Never Tobacco Cessation:Ready to Q uit: Not Asked; Counseling Given: Not Answered Alcohol Use Standard Drinks/Week Comments Yes 0 (1 standard drink = 0.6 oz pur e alcohol) Sex and Gender Information Value Date Recorded Sex Assigned at Not on file Legal Sex Male 2:11 PM EST Gender Identity Not on file Sexual Orientation Not on file Last Filed Vital Signs Vital Sign Reading Time Taken Comments Blood Pressure 96/50 04/18/2023 1:53 PM EST Pulse 83 04/18/2023 1:53 PM EST Temperature 36.2 C (97.1 F) 04/18/2023 8:03 AM EST Respiratory Rate 16 04/18/2023 1:47 PM EST Oxygen Saturation 97% 04/18/2023 1:47 PM EST Inhaled Oxygen Concentration - - Weight 81.2 kg (179 lb) 04/18/2023 4:00 AM EST Height 170.2 cm (5' 7 ) 03/20/2023 8:48 PM EST Body Mass Index 28.04 03/20/2023 8:48 PM EST Plan of Treatment Health Maintenance Due Date Last Done Comments CT Colonography 1961 Colonoscopy 1961 Colorectal Cancer Screening 1961 FIT-DNA (Cologuard) 1961 FIT 1961 FOBT 1961 Sigmoidoscopy 1961 Annual Visit Topic 1962 MMR Vaccines (1 of 1 - Stand louie series) 1962 Hepatitis C Screening 09/28/1979 Pneumococcal Vaccine: Pediat rics (0 to 5 years) and At-Risk Patients (6 to 64 Years) (1 of 4 - PCV) 1980 PSA Test 2016 DTaP/Tdap/Td Vaccines (2 - T d or Tdap) 03/02/2027 03/02/2017 HIB Vaccines Aged Out No longer eligi ble based on patient's age to complete this topic HPV Vaccines Aged Out No longer eligi ble based on patient's age to complete this topic Hepatitis A Vaccines Aged Out No long er eligible based on patient's age to complete this topic Hepatitis B Vaccines Aged Out No long er eligible based on patient's age to complete this topic IPV Vaccines Aged Out No longer eligi ble based on patient's age to complete this topic Meningococcal Vaccine Aged Out No giancarlo emmanuelle eligible based on patient's age to complete this topic Additional Health Concerns Infection Onset Date Last Indicated MRSA Comment:Chen - 02/2023 Added from external infection. Source: [facility] 03/13/2023 Advance Directives * Full Resuscitation (Latest Code Status on File) Date Activated Date Inactivated Comments 03/20/2023 4:47 PM 04/18/2023 5:50 PM Question Answer Comments I have discussed this order with the patient or his/her surrogate and have received informed consent. Yes
--- OUTSIDE RECORDS SUMMARY | 2024-08-20 11:53 | XMS_ITS | Patient Health Record ---
Author Organization [facility] [place] Address [address] [place] [address] Care Team Providers Care Shingle Cutter Name Role Phone Bryon Castellanos MD Primary Care Provider Unavailab Andrew Vincent Unavailable [phone] Eunice Garcia Unavailable [phone] Allergies No Known Allergies Reason For Referral No Information Medications Medication SIG (Take, Route, Frequency, Duration) Notes Start Date End Date Status GlycoLax 17 GM/SCOOP 1 scoop mixed with 8 ounces of fluid Orally Once a day Active guaiFENesin ER 600 MG 1 tablet as needed Orally every 12 hrs Active Furosemide 20 MG 1 tablet Orally Once a day Active Flexeril Not-Taking amLODIPine Besylate 10 MG 1 tablet Orall y Once a day Not-Taking Gabapentin 800 mg tablet N ot-Taking Aspirin 81 Active NexIUM 40 MG 1 capsule Orally Onc e a day for 30 day(s) 03/05/2016 Not-Taking Baclofen 5 MG 1 tablet as needed Orally Once a day Not-Taking Omeprazole 40 MG 1 capsule Orally BID for 30 day(s) 02/27/2016 Not-Taking CeleBREX 100 MG capsule DAILY Not-Taking oxyCODONE-Acetaminophen PRN Not-Taking Citalopram Hydrobromide 20 MG 1 tablet Orally Once a day Active PriLOSEC 40 MG 1 capsule Orally BID for 30 day(s) 05/03/2016 Not-Taking Doxazosin Mesylate 4 MG 1 tablet Orally Once a day Active Vashe Wound Therapy - as directed Heel Lining Paster ally BID for 14 days 05/03/2016 Not-Taking Famotidine 20 MG 1 tablet at bedtime as needed Orally Once a day Not-Taking Voltaren 1 % apply to back as needed Transdermal as needed for 30 days 05/03/2016 Not-Taking Ipratropium-Albuterol 0.5-2.5 (3) MG/3ML 3 mL as needed Inhalation BID for 30 days 03/31/2024 Active Augmentin 875-125 MG 1 tablet Orally shawn ry 12 hrs for 10 day(s) 10/08/2016 Not-Taking Cyclobenzaprine HCl Not-Taking Xanax 0.5 MG 1 tablet Orally Twic e a day Active Augmentin 875-125 MG 1 tablet Orally BID for 14 days 06/11/2016 Not-Taking traMADol HCl 50 MG 1 tablet as needed Orally Once a day Active Levalbuterol HCl 1.25 MG/3ML 3 mL as needed Inhalation every 8 hrs Active Labetalol HCl 200 MG 1 tablet Orally Twi ce a day Not-Taking Magnesium Oxide 400 MG 1 tablet as neede d Orally Once a day Not-Taking Oxygen - as directed 2 liters Active Senna 8.6 MG 2 tablets at bedtime as needed Orally Once a day Active Thiamine Mononitrate 100 MG 1 tablet Orally Once a day Active Tracheostomy Care - as directed patient has trach Active Tylenol 325 MG 1 tablet as needed Orally every 4 hrs Active Vitamin D (Cholecalciferol) 50 MCG (1999) 2 capsules Orally Once a day Active Ipratropium-Albuterol 0.5-2.5 (3) MG/3ML 3 mL as needed Inhalation every 6 hrs Active Social History Tobacco Use: Social History Observation Description Date Details (start date - stop date) Former Smoker NA - NA Tobacco Control (Standard) Question Answer Notes Tobacco use: Former smoker Problems Problem Type SNOMED Code ICD Code Onset Dates Problem Status W/U Status Risk Notes Problem 78785149 Other chronic pain (G89.29) Active confirmed Problem 88798736 Edema of larynx (J38.4) Active confirmed Problem 317863686 Other diseases o f larynx (J38.7) Active confirmed Problem 183520807 Chronic respiratory failure with hypoxia (J96.11) Active confirmed Problem 921152327 Dorsalgia, unspecified (M54.9) Active confirmed Problem 49012704 Dysphagia, oropharyngeal phase (R13.12) Active confirmed Problem 957181020 Personal history of Methicillin resistant Staphylococcus aureus infection (Z86.14) Active confirmed Problem 070761686 Personal history of nicotine dependence (Z87.891) Active confirmed Problem 764309954 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 Abad 3. chronic trach #6 XLTD with only ENT trach cahnge every 6 months in OR only Problem Hypertension (89731215) HTN (hypertension) (I10) Active confirmed Problem CVA - Cerebrovascular accident (889529953) CVA (cerebral vascular accident) (I63.9) Active confirmed Problem Vitamin D deficiency (29053952) Vitamin D deficiency (E55.9) Active confirmed Problem Chronic constipation (785533452) Chronic constipation (K59.00) Active confirmed Problem Vitamin D deficiency (86462502) Hypovitaminosis D (E55.9) Active confirmed Problem 867227275 Pre-procedural laboratory examination (Z01.812) Active confirmed Problem Leukocytosis (348618877) Leukocytosis (D72.829) Active confirmed Problem Anemia of chronic disease (062052520) Anemia of chronic disease (D63.8) Active confirmed Problem 422391809 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 Problem 234383102 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) Active confirmed Vital Signs Heart Rate 88 /min 03/31/2024 Blood pressure diastolic 80 mm Hg 03/31/2024 Oximetry 95 % 03/31/2024 Height 69 in 03/31/2024 Blood pressure systolic 130 mm Hg 03/31/2024 Weight 234 lbs 03/31/2024 BMI 34.55 kg/m2 03/31/2024 Encounters Encounter Location Date Provider Diagnosis [facility] [address] [place] [address] 03/31/2024 Eunice Garcia Acute embolism and thrombosis of right iliac vein I82.421 ; Chronic respiratory failure with hypoxia J96.11 ; Tracheostomy status Z93.0 ; Personal history of nicotine dependence Z87.891 and Other specified diseases of upper respiratory tract J39.8 Assessments Encounter Date Diagnosis (ICD Code) Assessment Notes Treatment Notes Treatment Clinical Notes Section Notes 03/31/2024 Acute embolism and thrombosis of right iliac vein (ICD-10 - I82.421) 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 Kc He is following with Dr. Kc vascular with minimum of 6 months of Eliquis planned. No history of PE. Possible plans for lifelong AC therapy given immobility status. 03/31/2024 Chronic respiratory failure with hypoxia (ICD-10 - J96.11) He is using 2 L at night. Currently he does not require oxygen during the day. 03/31/2024 Tracheostomy status (ICD-10 - Z93.0) Placed by Dr. Abad 03/14/2023. chronic trach #6 XLTD with only ENT trach cahnge every 6 months in OR only Tracheostomy is being managed by Dr. Abad with every 6-month change in the OR. We will plan for twice daily DuoNeb treatments with instillation and suctioning following respiratory treatments a minimum of twice a day and as needed. He may also do DuoNeb treatments as needed throughout the day every 4 hours. Would hold off on scopolamine patch or Robinul as when he was in rehab he did have issues when using scopolamine patch of thickened mucus with concern for mucous plugging. Management of tracheostomy otherwise through ENT office. 03/31/2024 Personal history of nicotine dependence (ICD-10 - Z87.891) 03/31/2024 Other specified diseases of upper respiratory tract (ICD-10 - J39.8) tracheal stenosis/trach eomalacia/subg lottic stenosis, Dr. Abad ENT Plan Of Treatment No Information Insurance Providers Payer Name Payer Address Payer Phone Subscriber Number Group Number Insured Name Patient Relationship to Insured Coverage Start Date Coverage End Date [employer] ADV PLAN [address] [place] [address] [id number] Danny Green Self - patient is the insured 0 MED[place]ID [place] 2ND INS [address] [place], [place] [id number] Danny Green Self - patient is the insured 0 Medical (General) History Medical History History ICD Code Snoring History of esophageal reflux Granular cell tumor, pancreatitis Trach care Surgical History Surgery Date(Month/Year) tracheostomy Previous EGD procedure with bronchoscopy Surgical / procedural 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
--- OUTSIDE RECORDS SUMMARY | 2024-08-20 11:53 | XMS_ITS | Encounter Summary ---
Author Organization [facility] Address [id number] [address] [place] [address] Care Team Providers Care Reservationist Name Role Phone Bryon Castellanos MD Primary Care Provider [phone] Encounter Details Date Type Department Care Team (Late st Contact Info) Description 07/16/2024 Orders Only [facility] [address] [place] [phone] Ref Prov, [place] [address] Social History Tobacco Use Types Packs/Day Years Used Date Smoking Tobacco: Every Day Cigarettes Smokeless Tobacco: Never Alcohol Use Standard Drinks/Week Comments Yes 21 (1 standard drink = 0.6 oz pu re alcohol) [facility] Utilities Answer Date Recorded In the past 12 months has e electric, gas, oil, or water company threatened to shut off services in your home? No 06/25/2024 PRAPARE - Transportation Answer Date Re corded In the past 12 months, has l ack of transportation kept you from medical appointments or from getting medications? No 06/2024 In the past 12 months, has l ack of transportation kept you from meetings, work, or from getting things needed for daily living? No 06/25/2024 Housing Instability Answer Date Recorde d Are you worried or concerned that in the next two months you may not have stable housing that you own, rent or stay in as a part of a household? No 06/25/2024 Childcare Answer Date Recorded Childcare Unknown 09/02/2018 Employment Answer Date Recorded Employment Unknown 09/02/2018 Hunger Screening Answer Date Recorded Within the past 12 months we worried whether our food would run out before we got money to buy more. Never True 06/25/2024 Within the past 12 months th e food we bought just didn't last and we didn't have money to get more. Never True 06/25/2024 Purpose - Life Answer Date Recorded Purpose and direction in life Unknown Sex and Gender Information Value Date Recorded Sex Assigned at Not on file Legal Sex Male 11:38 AM EDT Gender Identity Not on file Sexual Orientation Not on file documented as of this encounter Plan of Treatment Upcoming Encounters Date Type Department Care Team (Late st Contact Info) Description 08/31/2024 10:30 AM EDT Appointment [facility] [address] [place] [id number] Kasia Kc MD [address] [place] [address] 09/06/2024 10:00 AM EDT Office Visit [facility] [address] [place] [address] Elizabeth Bourgeois DO [address] [place] [address] documented as of this encounter Goals Goal Patient Goal Type Associated Problems Recent Progress Patient-Stated? Author return to [facility] General Yes Tracy Tolbert LSW Note: Evaluation of progress towards goal: under assessment documented as of this encounter Procedures Procedure Name Priority Date/Time Associated Diagnosis Comments XR CHEST 1 VW Routine 07/16/2024 9:40 AM EDT documented in this encounter Results * X-ray chest 1 view (07/16/2024 9:40 AM EDT) Anatomical Region Laterality Modality Body, Chest N/A Computed Radiogr aphy us Not In System Ref Prov IMG DIAGNOSTIC IMAGING OR DERABLES Final Result documented in this encounter Visit Diagnoses Not on filedocumented in this encounter Care Teams Reservationist Relationship Specialty Start Date End Date Bryon Castellanos MD [address] [place] [address] PCP - General Internal Medicine 09/06/23 documented as of this encounter
--- OUTSIDE RECORDS SUMMARY | 2024-08-20 11:53 | XMS_ITS | Clinical Summary ---
Author Organization [facility] tem Address [id number] [address] [place] [address] Care Team Providers Care Pigment And Lacquer Mixer Name Role Phone Bryon Castellanos MD Primary Care Provider [phone] Allergies No known active allergies Medications ipratropium-alb uteroL (DUONEB) 0.5 mg-3 mg(2.5 mg base)/3 mL nebulizer Inhale 3 mL every 4 (four) hours as needed for shortness of breath. 4 Active doxazosin (CARDURA) 2 mg tablet Take 2 tablets (4 mg total) by mouth nightly. Hold for SBP <100, P<60 4 Active cholecalciferol , vitamin D3, 5,000 units tablet 1 tablet (5,000 Units total) in the morning. 4 Active furosemide (LASIX) 20 mg tablet Take 1 tablet (20 mg total) by mouth daily. Active aspirin 81 mg Take 1 tablet (81 mg total) by mouth in the morning. Active acetaminophen (TYLENOL) 325 mg tablet Take 2 tablets (650 mg total) by mouth every 4 (four) hours as needed for pain or headaches (Temperature greater than 38.3 C). 4 Active guaiFENesin (MUCINEX) 600 mg tablet extended release 12hr Take 1 tablet (600 mg total) by mouth every 12 (twelve) hours. 4 Active thiamine HCl (VITAMIN B-1) 100 mg tablet Take 1 tablet (100 mg total) by mouth in the morning. 4 Active bisacodyL (DULCOLAX) 10 mg suppository Insert 1 suppository (10 mg total) into the rectum daily as needed for constipation. 4 Active levalbuterol (XOPENEX) 1.25 mg/3 mL nebulizer solutionIndicat ions:Acute on chronic respiratory failure with hypoxia and hypercapnia (CMS-HCC) Inhale 3 mL (1.25 mg total) by nebulization every 6 (six) hours as needed for wheezing or shortness of breath. 4 Active citalopram (CeleXA) 20 mg tablet Take 1 tablet (20 mg total) by mouth in the morning. 4 Active traMADoL (ULTRAM) 50 mg tablet Take 1 tablet (50 mg total) by mouth every 6 (six) hours as needed for pain. Active ALPRAZolam (XANAX) 0.5 mg tablet Take 1 tablet (0.5 mg total) by mouth 3 (three) times a day as needed for anxiety. Active warfarin (COUMADIN) 7.5 mg tablet Take 1 tablet (7.5 mg total) by mouth in the evening. Active polyethylene glycol (GLYCOLAX) 17 gram packet Take 17 g by mouth in the morning. Active pantoprazole (PROTONIX) 40 mg EC tablet Take 1 tablet (40 mg total) by mouth in the morning and at bedtime for 60 days. 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 Leg swelling 02/18/2024 Acute deep vein thrombosis ( DVT) of proximal vein of right lower extremity 02/18/2024 Anasarca 02/17/2024 Other tracheostomy complication 10/02/2023 Hypomagnesemia 08/13/2023 Cramp and spasm 08/13/2023 Anemia, unspecified 05/14/2023 Cognitive communication deficit 05/14/2023 Abnormal posture 05/14/2023 Vitamin D deficiency, unspecified 05/14/2023 Pain, unspecified 05/14/2023 Other general symptoms and signs 05/14/2023 Other abnormalities of gait and mobility 024 Nontraumatic intracerebral hemorrhage in brain s tem 05/14/2023 Nontraumatic intracerebral hemorrhage, unspecifi ed 05/14/2023 Essential (primary) hypertension 05/14/2023 Generalized muscle weakness 05/14/2023 Right hemiparesis 05/12/2023 Depression 04/26/2023 Urinary tract infection without hematuria 2023 Hemiplegia and hemiparesis f ollowing cerebral infarction affecting right dominant side 04/18/2023 Fever 03/16/2023 S/P percutaneous endoscopic gastrostomy (PEG) tube placement 03/15/2023 Pneumonia, unspecified organism 03/15/2023 Pneumonia of right lower lobe due to infectious organism 03/15/2023 Constipation 03/15/2023 Oropharyngeal dysphagia 03/14/2023 Copious oral secretions 03/12/2023 Excessive salivation 03/12/2023 Chronic hyponatremia 03/11/2023 Acute on chronic respiratory failure with hypoxia and hypercapnia 03/10/2023 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 Acute respiratory failure with hypoxia and hyper capnia 03/04/2023 Stridor 03/04/2023 Intrapontine hemorrhage 03/04/2023 Glottic edema 03/04/2023 Nontraumatic intracerebral hemorrhage, unspecifi ed 03/03/2023 Gastroesophageal reflux disease 08/14/2017 Hoarseness 08/05/2017 Other acute sinusitis 08/05/2017 Gingival hyperplasia 11/16/2014 Encounters Date Type Department Care Team Description 07/16/2024 Orders Only [facility] [address] [place] [address] Ref Prov, Not In System 07/13/2024 Travel 07/08/2024 Telephone [facility] - Pharmacy Medication Management [address] [place] [address] Deepthi Tate, [facility] 07/02/2024 Telephone [facility] [address] [place] [address] [address] [place] [address] Delaney Lagunas, FLORENCIA 06/29/2024 11:00 AM EDT - 06/29/2024 11:30 AM EDT Surgery [facility] - Surgery [address] [place] [address] Sandeep Stringer, DO COLONOSCOPY DIAGNOSTIC / SCREENING [41368 (CPT )] 06/29/2024 10:50 AM EDT Anesthesia Event [facility] - Surgery [address] [place] [address] Bobby Tran MD Drown, Jeremy S, ELEMENTARY TEACHER-PLANT PATHOLOGY TEACHER 06/28/2024 11:45 AM EDT - 06/28/2024 12:26 PM EDT Surgery [facility] - Surgery [address] [place] [address] Sandeep Stringer, ESOPHAGOGASTRODUODENOSCOPY BIOPSY [82530 (CPT )] 06/28/2024 11:11 AM EDT Anesthesia Event [facility] - Surgery [address] [place] [address] Bobby Tran MD 06/28/2024 Orders Only [facility] [address] [id number] Mickey Hunt DO 06/25/2024 9:05 AM EDT - 06/29/2024 3:12 PM EDT Hospital Encounter [facility] - Acute Care [address] [place] [address] Kofi Garza MD Gill, Kaleem U, MD Asif, Muhamid M, MD Seizure ([facility]) (Primary Dx); Anemia, unspecified type; Elevated INR; Rectal bleeding; Guaiac positive stools; Iron deficiency anemia, unspecified iron deficiency anemia type; Iron deficiency anemia due to chronic blood loss Discharge Disposition: Assisted Facility-Medicare Cert 06/25/2024 Travel from Last 3 Months Immunizations Immunization Administration Dates Next Due Tdap 03/02/2017 Social History Tobacco Use Types Packs/Day Years Used Date Smoking Tobacco: Every Day Cigarettes Smokeless Tobacco: Never Alcohol Use Standard Drinks/Week Comments Yes 21 (1 standard drink = 0.6 oz pu re alcohol) [facility] Utilities Answer Date Recorded In the past [...] Sign Reading Time Taken Comments Blood Pressure 132/55 06/29/2024 12:08 PM EDT Pulse 90 06/29/2024 12:20 PM EDT Temperature 37.2 C (98.9 F) 06/29/2024 12:08 PM EDT Respiratory Rate 25 06/29/2024 12:20 PM EDT Oxygen Saturation 100% 06/29/2024 12:20 PM EDT Inhaled Oxygen Concentration - - Weight 112.5 kg (248 lb) 06/27/2024 10:59 AM EDT Height 175.3 cm (5' 9 ) 06/27/2024 10:59 AM EDT Body Mass Index 36.62 06/27/2024 10:59 AM EDT Plan of Treatment Upcoming Encounters Date Type Department Care Team (Late st Contact Info) Description 08/31/2024 10:30 AM EDT Appointment [facility] - Vascular [address] [place] [phone] Kasia Kc MD [address] [place] [address] 09/06/2024 10:00 AM EDT Office Visit [facility] [address] [place] [address] Elizabeth Bourgeois DO [address] [place] [address] Health Maintenance Due Date Last Done Comments Tobacco Counseling 1960 Depression Screening 1973 Adult BMI Follow Up Plan 09/28/1979 Zoster (Shingles) Vaccine (1 of 2) 09/28/2011 Influenza Vaccine 11/22/2024 04/19/2016, , 01/17/2014 Adult BMI Screening 06/27/2025 06/27/2024 Tobacco Screening 06/28/2025 06/28/2024 DTaP,Tdap and Td Vaccines (2 - Td or Tdap) 03/02/2027 03/02/2017 Colonoscopy 06/29/2029 06/29/2024, 06/29/2024 Goals Goal Patient Goal Type Associated Problems Recent Progress Patient-Stated? Author return to [facility] General Yes Tracy Tolbert LSW Note: Evaluation of progress towards goal: under assessment Medical Devices Not on file Procedures Procedure Name Priority Date/Time Associated Diagnosis Comments XR CHEST 1 VW Routine 07/16/2024 9:40 AM EDT GI RESULTS REPORT (SCANNED INTO EHR) 07/06/2024 10:21 AM EDT SURGICAL PATHOLOGY Routine 06/29/2024 11 :07 AM EDT NH COLONOSCOPY FLX DX W/COLLJ SPEC WHEN PFRMD 06/29/2024 10:52 AM EDT Guaiac positive stools [R19.5] Iron deficiency anemia, unspecified iron deficiency anemia type [D50.9] PROVATION COLONOSCOPY Routine 06/29/2024 10:48 AM EDT COLONOSCOPY 06/29/2024 10:39 AM EDT CBC WITH AUTO DIFFERENTIAL Routine 06/29/2024 4:27 AM EDT MAGNESIUM Routine 06/29/2024 4:27 AM EDT COMPREHENSIVE METABOLIC PANEL Routine 06/29/2024 4:27 AM EDT HEMOGLOBIN AND HEMATOCRIT, BLOOD Routine 06/28/2024 1:22 PM EDT H PYLORI SCREEN Routine 06/28/2024 11:19 AM EDT Guaiac positive stools Iron deficiency anemia, unspecified iron deficiency anemia type SURGICAL PATHOLOGY Routine 06/28/2024 11 :17 AM EDT Guaiac positive stools Iron deficiency anemia, unspecified iron deficiency anemia type NH EGD TRANSORAL BIOPSY SINGLE/MULTIPLE 06/28/2024 11:09 AM EDT Guaiac positive stools Iron deficiency anemia, unspecified iron deficiency anemia type EGD 06/28/2024 11:05 AM EDT PROVATION EGD Routine 06/28/2024 10:16 AM EDT EEG Routine 06/28/2024 9:37 AM EDT PROTIME & INR Routine 06/28/2024 6:31 AM EDT CBC WITH AUTO DIFFERENTIAL Routine 06/28/2024 6:31 AM EDT MAGNESIUM Routine 06/28/2024 6:31 AM EDT COMPREHENSIVE METABOLIC PANEL Routine 06/28/2024 6:31 AM EDT HEMOGLOBIN AND HEMATOCRIT, BLOOD Routine 06/27/2024 9:34 PM EDT HEMOGLOBIN AND HEMATOCRIT, BLOOD Routine 06/27/2024 4:05 PM EDT POTASSIUM Routine 06/27/2024 4:05 PM EDT TRANSFUSE RED BLOOD CELLS Routine 06/27/2024 10:59 AM EDT PROTIME & INR Routine 06/27/2024 5:07 AM EDT CBC WITH AUTO DIFFERENTIAL Routine 06/27/2024 5:07 AM EDT MAGNESIUM Routine 06/27/2024 5:07 AM EDT COMPREHENSIVE METABOLIC PANEL Routine 06/27/2024 5:07 AM EDT HEMOGLOBIN AND HEMATOCRIT, BLOOD Routine 06/26/2024 9:06 PM EDT PROTIME & INR Routine 06/26/2024 11:06 AM EDT HEMOGLOBIN AND HEMATOCRIT, BLOOD Routine 06/26/2024 11:06 AM EDT TRANSFUSE RED BLOOD CELLS Routine 06/26/2024 8:18 AM EDT CBC WITH AUTO DIFFERENTIAL Routine 06/26/2024 5:07 AM EDT MAGNESIUM Routine 06/26/2024 5:07 AM EDT COMPREHENSIVE METABOLIC PANEL Routine 06/26/2024 5:07 AM EDT PROTIME & INR STAT 06/25/2024 10:46 PM EDT TROP I, HIGH SENSITIVITY 1 HOUR STAT 06/25/2024 10:46 PM EDT ECG 12-LEAD STAT 06/25/2024 9:12 PM EDT CK TOTAL Routine 06/25/2024 9:09 PM EDT TROPONIN I, HIGH SENSITIVITY STAT 06/25/2024 9:09 PM EDT HEMOGLOBIN AND HEMATOCRIT, BLOOD Routine 06/25/2024 9:09 PM EDT TRANSFUSE RED BLOOD CELLS Routine 06/25/2024 4:25 PM EDT CROSSMATCH RBC Routine 06/25/2024 10:30 AM EDT CROSSMATCH RBC Routine 06/25/2024 10:30 AM EDT CROSSMATCH RBC Routine 06/25/2024 10:30 AM EDT TYPE AND SCREEN Routine 06/25/2024 10:30 AM EDT NURSE FECAL OB Routine 06/25/2024 10:[address] BRAIN WO CONT STAT 06/25/2024 9:47 AM EDT ECG 12-LEAD STAT 06/25/2024 9:30 AM EDT TROPONIN I, HIGH SENSITIVITY STAT 06/25/2024 9:10 AM EDT MAGNESIUM STAT 06/25/2024 9:10 AM EDT COMPREHENSIVE METABOLIC PANEL STAT 06/25/2024 9:10 AM EDT B-TYPE NATRIURETIC PEPTIDE STAT 06/25/2024 9:10 AM EDT APTT STAT 06/25/2024 9:10 AM EDT PROTIME & INR STAT 06/25/2024 9:10 AM EDT CBC WITH AUTO DIFFERENTIAL STAT 06/25/2024 9:10 AM EDT REPEATED ABORH Routine 06/25/2024 9:00 AM EDT from Last 3 Months Results * X-ray chest 1 view (07/16/2024 9:40 AM EDT) Anatomical Region Laterality Modality Body, Chest N/A Computed Radiogr aphy us Not In System Ref Prov IMG DIAGNOSTIC IMAGING OR DERABLES Final Result * GI Results Report (Scanned Into EHR) (07/06/2024 10:21 AM EDT) Narrative 07/06/2024 10:21 AM EDT Ordered by an unspecified provider. us Not In System Ref Prov GI PROCEDURE ORDERABLES F inal Result * Surgical Pathology (06/29/2024 11:07 AM EDT) Only the most recent of2 resultswithin the time period is included. Tissue (Hepatic Flexure Polyp) 06/29/2024 11:07 AM EDT Comment:Pre-op diagnosis: Guaiac positive stools [R19.5] Iron deficiency anemia, unspecified iron deficiency anemia type [D50.9] Narrative COPATH - 07/02/2024 11:30 AM EDT [facility] [address] [place] [address] Surgical Pathology Consultation Patient Name:DANNY SÁNCHEZ:1960 (Age: 63)Gender:MTaken:06/29/2024Reported:07/02/2024Physician(s):Sandeep Stringer D.O. ([phone])Copy To: Rec. #:[id number]: #[id number] Final Pathologic Diagnosis Hepatic flexure polyp: Tubular adenoma fragments. Report Electronically Signed Out 07/02/2024Jessi Hernandez MD Interpretation performed at [facility], [address] [facility] [address], License number: [id number]. Clinical History Guaiac positive stools, R19.5. Iron deficiency anemia unspecified iron deficiency anemia type, D50.9. Gross Description Received in formalin labeled PRINCESS, polyp, hepatic flexure is a pink-sandoval polyp (apparent margin inked black), 0.6 cm in greatest dimension. The specimen is bisected and submitted entirely in a single cassette. (1, ns, [id number], m2) [facility]/06/30/2024GR Specimen(s) Received Hepatic flexure polyp Fee Codes(s): 1; 13173 Sandeep Stringer DO PATHOLOGY/CYTOLOGY ORDERABL ES Final Result COPATH * Colonoscopy Report (06/29/2024 10:48 AM EDT) Narrative SYSTEMGENERATED, DOCUMENTATION - 06/29/2024 10:48 AM EDT This order has been auto-finalized for image and report archival in PACs. *For full report details, please reach out to your physician. This image is visible to you in MyChart.* Sandeep Stringer DO IMG OR IMG ORDERABLES Final Result * Colonoscopy (06/29/2024 10:39 AM EDT) 06/29/2024 10:3 9 AM EDT Narrative PM CARDIOVASCULAR - 06/29/2024 11:24 AM EDT [facility] Patient Name: Danny Sánchez Procedure Date No Time: 06/29/2024 CSN : [id number] Date of : 1960 Admit Type: Outpatient Age: 63 Room: [place] [address] Gender: Male Note Status: Finalized Attending MD: Sandeep Stringer DO, Procedure: Colonoscopy Indications: Melena, Iron deficiency anemia Providers: Sandeep Stringer DO Medicines: Propofol per Anesthesia Complications: No immediate complications. Procedure: After I obtained informed consent, the scope was passed under direct vision. Throughout the procedure, the patient's blood pressure, pulse, and oxygen saturations were monitored continuously. The [facility] [id number] # [id number] PEDIATRIC COLONOSCOPE was introduced through the anus and advanced to the ascending colon for evaluation. This was the intended extent. The colonoscopy was technically difficult and complex due to poor bowel prep, significant looping, a tortuous colon and the patient's body habitus. Successful completion of the procedure was aided by applying abdominal pressure. The patient tolerated the procedure well. The quality of the bowel preparation was fair. Findings: The perianal and digital rectal examinations were normal. A 5 mm polyp was found in the hepatic flexure. The polyp was sessile. The polyp was removed with a hot snare. Resection and retrieval were complete. The exam was otherwise without abnormality. Estimated Blood Loss: Estimated blood loss: none. Estimated blood loss: none. Impression: - Preparation of the colon was fair. - One 5 mm polyp at the hepatic flexure, removed with a hot snare. Resected and retrieved. - The examination was otherwise normal. Recommendation: - [facility]. - Repeat colonoscopy in 5 years for surveillance based on pathology results. - Return to my office PRN. Procedure Code(s): --- Professional --- 10730, 52, Colonoscopy, flexible; with removal of tumor(s), polyp(s), or other lesion(s) by snare technique Diagnosis Code(s): --- Professional --- D12.3, Benign neoplasm of transverse colon (hepatic flexure or splenic flexure) K92.1, Melena (includes Hematochezia) D50.9, Iron deficiency anemia, unspecified CPT copyright 2022 [employer]. All rights reserved. The codes documented in this report are preliminary and upon barber shop operator review may be revised to meet current compliance requirements. DO Sandeep Blanca DO 06/29/2024 11:23:49 AM Number of Addenda: 0 Note Initiated On: 06/29/2024 10:39 AM Procedure Note Sandeep Stringer DO - 06/29/2024 [facility] Patient Name: Danny Sánchez Procedure Date No Time: 06/29/2024 CSN : [id number] Date of : 1960 Admit Type: Outpatient Age: 63 Room: [place] [address] Gender: Male Note Status: Finalized Attending MD: Sandeep Stringer DO, Procedure: Colonoscopy Indications: Melena, Iron deficiency anemia Providers: Sandeep Stringer DO Medicines: Propofol per Anesthesia Complications: No immediate complications. Procedure: After I obtained informed consent, the scope was passed under direct vision. Throughout theprocedure, the patient's blood pressure, pulse, and oxygen saturations were monitored continuously. [id number] # [id number] PEDIATRIC COLONOSCOPE was introduced through the anus and advanced to the ascending colon for evaluation. This was theintended extent. The colonoscopy was technically difficultand complex due to poor bowel prep, significantlooping, a tortuous colon and the patient's body habitus. Successful completion of the procedure was aided by applying abdominal pressure. The patient toleratedthe procedure well. The quality of the bowelpreparation was fair. Findings: The perianal and digital rectal examinations were normal. A 5 mm polyp was found in the hepatic flexure. The polyp was sessile. The polyp was removed with a hot snare. Resection and retrieval were complete. The exam was otherwise without abnormality. Estimated Blood Loss: Estimated blood loss: none. Estimated blood loss:none. Impression: - Preparation of the colon was fair. - One 5 mm polyp at the hepatic flexure, removedwith a hot snare. Resected and retrieved. - The examination was otherwise normal. Recommendation: - [facility] - Repeat colonoscopy in 5 years for surveillancebased on pathology results. - Return to my office PRN. Procedure Code(s): --- Professional --- 11377, 52, Colonoscopy, flexible; with removal of tumor(s), polyp(s), or other lesion(s) by snare technique Diagnosis Code(s): --- Professional --- D12.3, Benign neoplasm of transverse colon (hepatic flexure orsplenic flexure) K92.1, Melena (includes Hematochezia) D50.9, Iron deficiency anemia, unspecified CPT copyright 2022 [employer]. All rights reserved. The codes documented in this report are preliminary and upon barber shop operator reviewmay be revised to meet current compliance requirements. DO Sandeep Blanca DO 06/29/2024 11:23:49 AM Number of Addenda: 0 Note Initiated On: 06/29/2024 10:39 AM us Sandeep Stringer DO GI PROCEDURE ORDERABLES Fin al Result PM CARDIOVASCULAR * (ABNORMAL) CBC auto differential (06/29/2024 4:27 AM EDT) Only the most recent of5 resultswithin the time period is included. White Blood Cells 11.4(H) 4.0 - 11.0 X10E9/L 06/29/2024 5:20 AM [facility] RBC count 2.67(L) 4.10 - 5.70 X10E12/L 06/29/2024 5:20 AM [facility] Hemoglobin 8.1(L) 13.0 - 17.0 g/dL 06/29/2024 5:20 AM [facility] Hematocrit 24.4(L) 39 - 49 % 06/29/2024 5:20 AM [facility] MCV 92 80 - 100 fL 06/29/2024 5:20 AM [facility] MCH 30.5 27 - 34 pg 06/29/2024 5:20 AM [facility] MCHC 33.4 32 - 36 g/dL 06/29/2024 5:20 AM [facility] RDW 17.9(H) 11.5 - 15.0 % 06/29/2024 5:20 AM [facility] Platelets 367 150 - 450 X10E9/L 06/29/2024 5:20 AM [facility] MPV 6.6(L) 7 - 12 fL 06/29/2024 5:20 AM [facility] Band 2.0 % 06/29/2024 6:37 AM [facility] Seg neutrophil 72.0 % 06/29/2024 6:37 AM [facility] Lymphocyte 11.0 % 06/29/2024 6:37 AM [facility] Monocytes 6.0 % 06/29/2024 6:37 AM [facility] Eosinophil 5.0 % 06/29/2024 6:37 AM [facility] Basophil 3.0 % 06/29/2024 6:37 AM EDT [facility] Lymphocyte, atypical 1.0 % 06/29/2024 6:37 AM EDT [facility] Nucleated RBC 1.0 0.0 - 1.0 /100 WBC 06/29/2024 6:37 AM EDT [facility] Neutrophils Absolute (M) 8.4(H) 1.5 - 6.6 X10E9/L 06/29/2024 6:37 AM EDT [facility] Lymphocytes Absolute 1.4 1.0 - 3.5 X10E9/L 06/29/2024 6:37 AM EDT [facility] Monocytes Absolute 0.7 0 - 0.9 X10E9/L 06/29/2024 6:37 AM EDT [facility] Eosinophils Absolute 0.6(H) 0.0 - 0.4 X10E9/L 06/29/2024 6:37 AM EDT [facility] Basophils Absolute 0.3(H) 0.0 - 0.2 X10E9/L 06/29/2024 6:37 AM EDT [facility] Polychromasia 1+(A) NONE^NONE 06/29/2024 6:37 AM EDT [facility] Teardrop 1+(A) NONE^NONE 06/29/2024 6:37 AM EDT [facility] Ovalocytes 1+(A) NONE^NONE 06/29/2024 6:37 AM EDT [facility] Stomatocyte 1+(A) NONE^NONE 06/29/2024 6:37 AM T [facility] Blood / Unknown 06/29/2024 4 :27 AM EDT 06/29/2024 4:54 AM EDT us Alissa Alaniz ELEMENTARY TEACHER-HUMAN RESOURCES RECORDS CLERK LAB BLOOD ORDERABLES Edit ed Result - Final MAGDIEL [facility] [address] [place] [address] * Magnesium (06/29/2024 4:27 AM EDT) Only the most recent of5 resultswithin the time period is included. Magnesium 2.2 1.8 - 2.6 mg/dL 06/29/2024 5:45 AM [facility] PLASMA 06/29/2024 4:27 AM EDT 06/29/2024 4:54 AM EDT us Alissa Alaniz ELEMENTARY TEACHER-HUMAN RESOURCES RECORDS CLERK LAB BLOOD ORDERABLES Iva butt Result [facility] [address] [place] [address] * (ABNORMAL) Comprehensive metabolic panel (06/29/2024 4:27 AM EDT) Only the most recent of5 resultswithin the time period is included. Sodium 137 134 - 146 mmol/L 06/29/2024 5:35 AM [facility] Potassium, Bld 3.8 3.5 - 5.0 mmol/L 06/29/2024 5:35 AM [facility] Chloride 101 98 - 109 mmol/L 06/29/2024 5:35 AM [facility] CO2 24 22 - 32 mmol/L 06/29/2024 5:35 AM [facility] Anion gap 12 5 - 15 mmol/L 06/29/2024 5:35 AM [facility] BUN 13 5 - 27 mg/dL 06/29/2024 5:45 AM [facility] Creatinine 1.15 0.70 - 1.20 mg/dL 06/29/2024 5:45 AM [facility] Comment:METHOD TRACEABLE TO IDMS STANDARD Glucose 99 65 - 99 mg/dL 06/29/2024 5:35 AM [facility] Calcium 8.4(L) 8.5 - 10.5 mg/dL 06/29/2024 5:35 AM [facility] Total Protein 6.9 6.0 - 8.0 g/dL 06/29/2024 5:45 AM [facility] Albumin 3.4 3.2 - 5.3 g/dL 06/29/2024 5:45 AM EDT [facility] Alkaline Phosphatase 91 39 - 130 U/L 06/29/2024 5:45 AM EDT [facility] AST 18 0 - 41 U/L 06/29/2024 5:45 AM EDT [facility] ALT 14 0 - 40 U/L 06/29/2024 5:45 AM EDT [facility] Total bilirubin 1.0 0.3 - 1.2 mg/dL 06/29/2024 5:45 AM EDT [facility] eGFR (CKD-EPI)non-rac e dependent 72 >59 ml/min/1.7 3sq.m 06/29/2024 5:45 AM EDT [facility] Comment: Reported eGFR is based on the CKD-EPI 2020 equation that does not use a race coefficient. PLASMA 06/29/2024 4:27 AM EDT 06/29/2024 4:54 AM EDT Alissa Alaniz ELEMENTARY TEACHERAssistera LAB BLOOD ORDERABLES Iva l Result [address] [address] * (ABNORMAL) Hemoglobin and hematocrit, blood (06/28/2024 1:22 PM EDT) Only the most recent of6 resultswithin the time period is included. Hemoglobin 8.0(L) 13.0 - 17.0 g/dL 06/28/2024 1:31 PM EDT [facility] Hematocrit 23.8(L) 39 - 49 % 06/28/2024 1:31 PM EDT [facility] Blood / Unknown 06/28/2024 1 :22 PM EDT 06/28/2024 1:26 PM EDT lAissa Alaniz ELEMENTARY TEACHER-HUMAN RESOURCES RECORDS CLERK LAB BLOOD ORDERABLES Iva l Result [address] [place] [address] * H Pylori Screen (06/28/2024 11:19 AM EDT) Clotest h pylori/ h pylori screen Negative Negative^N egative 06/29/2024 6:17 AM EDT [facility] Tissue Mastoid antrum structure / Unknown 06/28/2024 11:19 AM EDT Comment:Pre-op diagnosis: Guaiac positive stools [R19.5] Iron deficiency anemia, unspecified iron deficiency anemia type [D50.9] us Sandeep Stringer DO [facility] - [facility] Final Result [facility] [address] [place] [address] * EGD (06/28/2024 11:05 AM EDT) 06/28/2024 11:0 5 AM EDT Narrative PM CARDIOVASCULAR - 06/28/2024 11:23 AM EDT [facility] Patient Name: Danny Sánchez Procedure Date No Time: 06/28/2024 CSN : [id number] Date of : 1960 Admit Type: Outpatient Age: 63 Room: [place] [address] Gender: Male Note Status: Finalized Attending MD: Sandeep Stringer DO, Procedure: Upper GI endoscopy Indications: Unexplained iron deficiency anemia, Melena Providers: Sandeep Stringer DO Medicines: Propofol per Anesthesia Complications: No immediate complications. Procedure: After obtaining informed consent, the endoscope was passed under direct vision. Throughout the procedure, the patient's blood pressure, pulse, and oxygen saturations were monitored continuously. The OLYMPUS GIF-[id number] #[id number] ADULT GASTROSCOPE was introduced through the mouth, and advanced to the fourth part of duodenum. The upper GI endoscopy was accomplished without difficulty. The patient tolerated the procedure well. Findings: The nasopharynx and oropharynx were normal. The examined esophagus was normal. Scattered moderate inflammation characterized by congestion (edema), erythema, friability, granularity and nodularity was found in the gastric antrum. Biopsies were taken with a cold forceps for histology. The examined duodenum was normal. Has PEG tube in place Estimated Blood Loss: Estimated blood loss was minimal. Impression: - Normal nasopharynx and oropharynx. - Normal esophagus. - Gastritis, characterized by congestion (edema), erythema, friability, granularity and nodularity. Biopsied. - Normal examined duodenum. Recommendation: - No aspirin, ibuprofen, naproxen, or other non-steroidal anti-inflammatory drugs for 12 weeks. - Use Prilosec (omeprazole) 40 mg PO daily for 8 weeks. - Perform a colonoscopy tomorrow. Procedure Code(s): --- Professional --- 40861, Esophagogastroduodenoscopy, flexible, transoral; with biopsy, single or multiple Diagnosis Code(s): --- Professional --- K29.70, Gastritis, unspecified, without bleeding D50.9, Iron deficiency anemia, unspecified K92.1, Melena (includes Hematochezia) CPT copyright 2022 [employer]. All rights reserved. The codes documented in this report are preliminary and upon barber shop operator review may be revised to meet current compliance requirements. DO Sandeep Blanca DO 06/28/2024 11:23:37 AM Number of Addenda: 0 Note Initiated On: 06/28/2024 11:05 AM Procedure Note Sandeep Stringer DO - 06/28/2024 [facility] Patient Name: Danny Sánchez Procedure Date No Time: 06/28/2024 CSN : [id number] Date of : 1960 Admit Type: Outpatient Age: 63 Room: [place] [address] Gender: Male Note Status: Finalized Attending MD: Sandeep Stringer DO, Procedure: Upper GI endoscopy Indications: Unexplained iron deficiency anemia, Melena Providers: Sandeep Stringer DO Medicines: Propofol per Anesthesia Complications: No immediate complications. Procedure: After obtaining informed consent, the endoscope was passed under direct vision. Throughout theprocedure, the patient's blood pressure, pulse, and oxygen saturations were monitored continuously. TheOLYMPUS GIF-[id number] #[id number] ADULT GASTROSCOPE was introduced through the mouth, and advanced to the fourth partof duodenum. The upper GI endoscopy was accomplished without difficulty. The patient tolerated the procedure well. Findings: The nasopharynx and oropharynx were normal. The examined esophagus was normal. Scattered moderate inflammation characterized by congestion (edema), erythema, friability, granularity and nodularity was found in the gastric antrum. Biopsies were taken with a cold forceps forhistology. The examined duodenum was normal. Has PEG tube in place Estimated Blood Loss: Estimated blood loss was minimal. Impression: - Normal nasopharynx and oropharynx. - Normal esophagus. - Gastritis, characterized by congestion (edema), erythema, friability, granularity and nodularity. Biopsied. - Normal examined duodenum. Recommendation: - No aspirin, ibuprofen, naproxen, or other non-steroidal anti-inflammatory drugs for 12weeks. - Use Prilosec (omeprazole) 40 mg PO daily for 8weeks. - Perform a colonoscopy tomorrow. Procedure Code(s): --- Professional --- 30877, Esophagogastroduodenoscopy, flexible, transoral; with biopsy, single or multiple Diagnosis Code(s): --- Professional --- K29.70, Gastritis, unspecified, without bleeding D50.9, Iron deficiency anemia, unspecified K92.1, Melena (includes Hematochezia) CPT copyright 2022 [employer]. All rights reserved. The codes documented in this report are preliminary and upon barber shop operator reviewmay be revised to meet current compliance requirements. DO Sandeep Blanca DO 06/28/2024 11:23:37 AM Number of Addenda: 0 Note Initiated On: 06/28/2024 11:05 AM Sandeep Stringer DO GI PROCEDURE ORDERABLES Fin al Result PM CARDIOVASCULAR * EGD Report (06/28/2024 10:16 AM EDT) Narrative SYSTEMGENERATED, DOCUMENTATION - 06/28/2024 10:16 AM EDT This order has been auto-finalized for image and report archival in PACs. *For full report details, please reach out to your physician. This image is visible to you in MyChart.* us Sandeep Stringer DO IMG OR IMG ORDERABLES Final Result * EEG (06/28/2024 9:37 AM EDT) Narrative MANUALLY TRANSCRIBED RESULTS - 06/28/2024 11:14 AM EDT Images from the original result were not included. ME EEG REPORT EEG Service Date: 06/28/24 Date of Report: 06/28/24 History: Danny Sánchez is a 63 y.o. male with a history of seizure-like activity, who is undergoing an EEG to evaluate for underlying epileptiform activity. Medications: Vitamin D, Celexa, guaifenesin, iron sucrose, melatonin, pantoprazole, terazosin and thiamine. Level of Consciousness: Asleep only. Duration of Study: 00 hours and 29 minutes. Technical description: This EEG was acquired with electrodes placed according to the 10-20 electrode placement system. A single EKG channel was recorded for cardiac rhythm monitoring. Video was not recorded. Quality of recording was fair. Entire study was reviewed. EEG Report: The entire study appears to have been completed in sleep state, as no clear awake background was appreciated. The technologist's note did not indicate that an attempt was made to awaken the patient. As such no comments can be made about awake state. The EEG background was mostly comprised of generalized, centrally dominant 3 to 4 Hz rhythms with amplitude of 20-30 V. This activity was seen symmetrically. Intermittently, generalized, frontal-centrally dominant rhythmic 14-16 Hz activity with amplitude of <20 V, lasting up to 1 second, most consistent with sleep spindles were recorded. This state was most consistent with stage N2 of non-REM sleep. No clear focal slowing or asymmetry was appreciated. An incidental note of frequent ventricular premature contractions were observed on the EKG. Activation Procedures: Photic stimulation was performed, and did not elicit any abnormal responses. Hyperventilation was not performed. Interictal epileptiform abnormalities: Interictal epileptiform discharges were not seen Ictal Events: None. Clinical Events: None. EEG Classification: This EEG was obtained while asleep, and can be considered to be within normal limits. Clinical Correlation: This EEG recording in asleep state is within normal limits.No epileptiform discharges or lateralizing signs were seen. Absence of epileptiform discharges does not exclude the diagnosis of epilepsy. Arthur Shen MD. Retail Product Demo Specialist of Neurology and Sleep [facility] 06/28/2024 11:02 AM Epilepsy admit Referring Provider: Alissa Alaniz APRN-MARTITA [address] [place] [address] us Alissa Alaniz ELEMENTARY TEACHER-HUMAN RESOURCES RECORDS CLERK NEUROLOGY ORDERABLES Iva l Result Performing Organization Address City/[facility] Co de Phone Number MANUALLY TRANSCRIBED RESULTS * Protime & INR (06/28/2024 6:31 AM EDT) Only the most recent of5 resultswithin the time period is included. Protime 12.8 9.8 - 13.2 sec 06/28/2024 6:45 AM EDT [facility] Comment:NEW REFERENCE RANGE Inr 1.1 0.9 - 1.2 06/28/2024 6:45 AM EDT [facility] PLASMA 06/28/2024 6:31 AM EDT 06/28/2024 6:35 AM EDT us Herb Bee MD LAB BLOOD ORDERABLES Final Resu lt Performing Organization Address [facility] de Phone Number [address] [address] * Potassium (06/27/2024 4:05 PM EDT) Potassium, Bld 4.1 3.5 - 5.0 mmol/L 06/27/2024 4:30 PM EDT [facility] PLASMA 06/27/2024 4:05 PM EDT 06/27/2024 4:17 PM EDT Herb Bee MD LAB BLOOD ORDERABLES Final Resu lt Performing Organization Address [facility] Co de Phone Number [address] [address] * Transfuse RBC:1 Unit (06/27/2024 12:33 PM EDT) Only the most recent of3 resultswithin the time period is included. Herb Bee MD BLOOD TRANSFUSION ORDERABLES Fi nal Result * Troponin I, High Sensitivity 1 Hour (06/25/2024 10:46 PM EDT) 1 Hour Trop I, High Sensitivity 7 <21 ng/L 06/25/2024 11:19 PM EDT [facility] Blood Serum / Unknown 06/25/2024 1 0:46 PM EDT 06/25/2024 10:49 PM EDT Winnie Harris APRN-HUMAN RESOURCES RECORDS CLERK LAB BLOOD ORDERABLES Final Result Performing Organization Address City/[facility]/ZIP Co de Phone Number [address], [place] [address] * ECG 12 lead (06/25/2024 9:12 PM EDT) Only the most recent of2 resultswithin the time period is included. 06/25/2024 9:12 PM EDT Narrative TRACEMAST[facility] - 07/01/2024 12:31 PM EDT Winnie Harris APRN-HUMAN RESOURCES RECORDS CLERK ECG ORDERABLES Final Result Performing Organization Address City/[facility]/ZIP Co de Phone Number [facility] * Troponin I, High Sensitivity (06/25/2024 9:09 PM EDT) Only the most recent of2 resultswithin the time period is included. Troponin I, High Sensitivity 5 <21 ng/L 06/25/2024 9:45 PM EDT [facility] Blood Serum / Unknown 06/25/2024 9 :09 PM EDT 06/25/2024 9:17 PM EDT Winnie Harris ELEMENTARY TEACHER-HUMAN RESOURCES RECORDS CLERK LAB BLOOD ORDERABLES Final Result [address] [address] * (ABNORMAL) CK Total (06/25/2024 9:09 PM EDT) Total CK 202(H) 24 - 195 U/L 06/25/2024 9:36 PM EDT [facility] PLASMA 06/25/2024 9:09 PM EDT 06/25/2024 9:17 PM EDT us Winnie Harris ELEMENTARY TEACHER-HUMAN RESOURCES RECORDS CLERK LAB BLOOD ORDERABLES Final Result [address] [address] * Crossmatch RBC:Number of Units: 1 (06/25/2024 10:30 AM EDT) Only the most recent of3 resultswithin the time period is included. Pathologist [facility] Blood component type [id number] [facility] Unit number [id number] [facility] Unit ABO O [facility] Unit RH POS [facility] Crossmatch Compatible [facility] Status of unit TRANSFUSED PROM [facility] Expiration Date [id number] [facility] BB Type Barcode 5100 [facility] Blood 06/25/2024 10:3 0 AM EDT us Herb Bee MD BLOOD BANK PRODUCT ORDERABLES E dited Result - Final [address] [address], * Type and screen(includes indirect shannan) (06/25/2024 10:30 AM EDT) ABO A 06/25/2024 11:27 AM EDT [facility] RH Positive 06/25/2024 11:27 AM EDT [facility] Antibody Screen Negative 06/25/2024 11:27 AM EDT [facility] 06/25/2024 10:3 0 AM EDT us Kofi Garza MD BLOOD BANK TEST ORDERABLES Edit ed Result - Final Performing Organization Address [facility]/[place]IP [place] [address], * (ABNORMAL) Nurse fecal OB (06/25/2024 10:30 AM EDT) Nursing fecal occult blood Positive(A ) Negative^N egative 06/25/2024 12:39 PM EDT [facility] Feces / Unknown 06/25/2024 1 0:30 AM EDT 06/25/2024 12:39 PM EDT us Kofi Garza MD POINT OF CARE TEST ORDERABLES F inal Result Performing Organization Address [facility] Co de Phone Number [address], [place] [address] * CT brain without contrast (06/25/2024 9:47 AM EDT) Anatomical Region Laterality Modality Neuro, Head, Head and Neck, Neuro Covera N/A Computed Tomography 06/25/2024 9:51 AM EDT Narrative 06/25/2024 9:53 AM EDT Exam: CT brain without contrast. CLINICAL HISTORY: Seizure. Headache. TECHNIQUE: CT brain without intravenous contrast. All CT scans at this facility use dose modulation, iterative reconstruction, and/or weight based dosing when appropriate to reduce radiation dose to as low as reasonably achievable COMPARISON: None FINDINGS: No evidence of hemorrhage. No mass or mass effect. No CT evidence of acute ischemia/infarct. Old lacunar infarct in the left norman. The midline structures are intact, no midline shift. The ventricles and basal cisterns are unremarkable. The brainstem and cerebellum are unremarkable. The paranasal sinuses and mastoid air cells are well aerated. No acute osseous abnormality. IMPRESSION: 1. No acute intracranial pathology by CT. 2. Old lacunar infarct in the left norman. Finalized by Chung Biswas MD on 06/25/2024 9:53 AM Procedure Note Chung Biswas MD - 06/25/2024 Exam: CT brain without contrast. CLINICAL HISTORY: Seizure. Headache. TECHNIQUE: CT brain without intravenous contrast. All CT scans at this facility use dose modulation, iterativereconstruction, and/or weight based dosing when appropriate to reduceradiation dose to as low as reasonably achievable COMPARISON: None FINDINGS: No evidence of hemorrhage. No mass or mass effect. No CT evidence of acute ischemia/infarct. Old lacunar infarct in the left norman. The midline structures are intact, no midline shift. The ventricles and basal cisterns are unremarkable. The brainstem and cerebellum are unremarkable. The paranasal sinuses and mastoid air cells are well aerated. No acute osseous abnormality. IMPRESSION: 1. No acute intracranial pathology by CT. 2. Old lacunar infarct in the left norman. Finalized by Chung Biswas MD on 06/25/2024 9:53 AM Kofi Garza MD IMG CT ORDERABLES Final Result * (ABNORMAL) APTT (06/25/2024 9:10 AM EDT) Pathologist [facility] aPTT 54(H) 26 - 37 sec 06/25/2024 9:58 AM EDT [facility] Comment:NEW REFERENCE RANGE Blood (PLASMA) 06/25/2024 9: 10 AM EDT 06/25/2024 9:28 AM EDT us Kofi Garza MD LAB BLOOD ORDERABLES Final Resu lt [facility] [address] [place] [address] * B-type natriuretic peptide (06/25/2024 9:10 AM EDT) BNP <5 <100.0 pg/mL 06/25/2024 10:01 AM EDT [facility] Blood (PLASMA) 06/25/2024 9: 10 AM EDT 06/25/2024 9:28 AM EDT Kofi Garza MD LAB BLOOD ORDERABLES Final Resu lt Performing Organization Address [facility]/ZIP Co de Phone Number [facility] [address] [place] [address], [place] [address] * ABO Rh Repeat (06/25/2024 9:00 AM EDT) ABO A 06/25/2024 11:43 AM EDT [facility] RH Positive 06/25/2024 11:43 AM EDT [facility] 06/25/2024 9:0 0 AM EDT Kofi Garza MD BLOOD BANK TEST ORDERABLES Iva l Result Performing Organization Address City/[facility] Co de Phone Number [address] [address], from Last 3 Months Insurance [place]ICAID [place] MED[place] Advance Directives * Full Code (Latest Code Status on File) Date Activated Date Inactivated Comments 06/25/2024 1:40 PM 06/29/2024 5:18 PM * Full Code Date Activated Date Inactivated Comments 02/18/2024 11:02 PM 02/23/2024 8:06 PM * Full Code Date Activated Date Inactivated Comments 02/17/2024 9:17 PM 02/18/2024 5:23 PM Care Teams Pigment And Lacquer Mixer Relationship Specialty Start Date End Date Bryon Castellanos MD [address] [facility] [place], [facility] [address] [place] [address] PCP - General Internal Medicine 09/06/23
--- OUTSIDE RECORDS SUMMARY | 2024-08-20 11:53 | XMS_ITS | Encounter Summary ---
Author Organization [facility] Address [address] [place] [address] Care Team Providers Care Vp Patient Name Role Phone Bryon Castellanos MD Primary Care Provider [phone] Encounter Details Date Type Department Care Team (Latest Contact Info) Description 12/24/2023 Transcribe Orders [facility] [address] [place], [place] [id number] Diana Lewis MD [address] [place] [address], [facility] [address] [place] [address] Other tracheostomy complication (HCC) (Primary Dx); Gastrostomy status (HCC); Constipation, unspecified constipation type Social History Tobacco Use Types Packs/Day Years Used Date Smoking Tobacco: Former Cigarettes Passive Smoke Exposure: Never Smokeless Tobacco: Never Alcohol Use Standard Drinks/Week Comments Not Currently 0 (1 standard drink = 0.6 oz pur e alcohol) [facility] Utilities Answer Date Recorded In the past 12 months has [employer] electric, gas, oil, or water company threatened [...] place to sleep or slept in a assisted (including now)? No 10/02/2023 Interpersonal Safety ([facility] HRSN) Answer Date Recorded How often does [...] eening Answer Date Recorded Physical abuse Denies 10/02/2023 Verbal abuse Denies 10/02/2023 Emotional abuse Denies 10/02/2023 Financial abuse Denies 10/02/2023 Sexual abuse Denies 10/02/2023 Sex and Gender Information Value Date Recorded Sex Assigned at Not on file Legal Sex Male 6:01 PM EST Gender Identity Not on file Sexual Orientation Not on file documented as of this encounter Plan of Treatment Upcoming Encounters Date Type Department Care Team (Latest Contact Info) Description 09/08/2024 12:30 PM EDT Hospital Encounter [facility] OR [address] [place] [address] Johny Abad MD [address] [address] 09/08/2024 12:30 PM EDT - 09/08/2024 1:50 PM EDT Surgery [facility] [address] [place] [address] Johny Abad MD [address] [address] DIRECT LARYNGOSCOPY Scheduled Procedures Name Priority Associated Diagnoses Date/Ti me LARYNGOSCOPY MICRO Tracheostomy dependent (HCC) 09/08/2024 12:30 PM EDT TRACHEOTOMY Tracheostomy dependent (HCC) 09/08/2024 12:30 PM EDT documented as of this encounter Visit Diagnoses Diagnosis Other tracheostomy complication (HCC)- Primary Other tracheostomy complication Gastrostomy status (HCC) Gastrostomy status Constipation, unspecified constipation type Tracheostomy dependent (HCC) Tracheostomy status documented in this encounter Additional Health Concerns Infection Onset Date Last Indicated Resolved Time MRSA Comment:Nasal- 09/202303/13/2023 10/02/2023 documented as of this encounter Care Teams Vp Patient Relationship Specialty Start Date End Date Bryon Castellanos MD [address] [place] [address] [address] [place] [address] PCP - General Internal Medicine 10/07/23 documented as of this encounter
--- OUTSIDE RECORDS SUMMARY | 2024-08-20 11:53 | XMS_ITS | Encounter Summary ---
Author Organization [facility] Address [id number] [address] [place] [address] Care Team Providers Care Alum Mixer Name Role Phone Bryon Castellanos MD Primary Care Provider [phone] Encounter Details Date Type Department Care Team (Late st Contact Info) Description 04/19/2024 Orders Only [facility] [place] [address] [place] [phone] Bryon Castellanos MD 112 [facility] [address] [place] [phone] Social History Tobacco Use Types Packs/Day Years Used Date Smoking Tobacco: Every Day Cigarettes Smokeless Tobacco: Never Alcohol Use Standard Drinks/Week Comments Yes 21 (1 standard drink = 0.6 oz pu re alcohol) [facility] Utilities Answer Date Recorded In the past 12 months has [facility] [employer], gas, oil, or water company threatened to shut off services in your home? No 02/18/2024 PRAPARE - Transportation Answer Date Re corded In the past 12 months, has l ack of transportation kept you from medical appointments or from getting medications? No 01/23 In the past 12 months, has l ack of transportation kept you from meetings, work, or from getting things needed for daily living? No 02/18/2024 Housing Instability Answer Date Recorde d Are you worried or concerned that in the next two months you may not have stable housing that you own, rent or stay in as a part of a household? No 02/18/2024 Childcare Answer Date Recorded Childcare Unknown 09/02/2018 Employment Answer Date Recorded Employment Unknown 09/02/2018 Hunger Screening Answer Date Recorded Within the past 12 months we worried whether our food would run out before we got money to buy more. Patient Declined 024 Within the past 12 months th e food we bought just didn't last and we didn't have money to get more. Patient Declined 01/23 Purpose - Life Answer Date Recorded Purpose [...] Info) Description 08/31/2024 10:30 AM EDT Appointment [facility] - Vascular [address] [place] [address] Kasia Kc MD [address] [facility] [address] [place] [address] 09/06/2024 10:00 AM EDT Office Visit [facility] [address] [place] [address] Elizabeth Bourgeois DO [address] [facility] [address] [place] [address] documented as of this encounter Goals Goal Patient Goal Type Associated Problems Recent Progress Patient-Stated? Author return to [facility] General Yes Tracy Tolbert LSW Note: Evaluation of progress towards goal: under assessment documented as of this encounter Procedures Procedure Name Priority Date/Time Associated Diagnosis Comments VASC VENOUS DUPLEX LOWER RIGHT Routine 04/19/2024 1:51 PM EST VASC VENOUS DUPLEX LOWER RIGHT Routine 04/19/2024 1:46 PM EST documented in this encounter Results * Vas venous duplex lwr single right (04/19/2024 1:51 PM EST) Anatomical Region Laterality Modality Vascular Right Ultrasound us Bryon Castellanos MD CV VASCULAR ORDERABLES Final R esult * Vas venous duplex lwr single right (04/19/2024 1:46 PM EST) Anatomical Region Laterality Modality Vascular Right Ultrasound us Bryon Castellanos MD CV VASCULAR ORDERABLES Final R esult documented in this encounter Visit Diagnoses Not on filedocumented in this encounter Care Teams Alum Mixer Relationship Specialty Start Date End Date Bryon Castlelanos MD 112 [facility] [address] [place] [address] PCP - General Internal Medicine 09/06/23 documented as of this encounter
--- OUTSIDE RECORDS SUMMARY | 2024-08-20 11:53 | XMS_ITS | Encounter Summary ---
Author Organization [facility] Address [address] [place] [address] Care Team Providers Care Supervisor Hand Silvering Name Role Phone Unavailable Primary Care Provider Unavailabl e Encounter Details Date Type Department Care Team (Late st Contact Info) Description 03/31/2024 Abstract [facility] [address] [place] [address] Unallocated, Noms Provider, [address] [place] [address] Social History Tobacco Use Types [...]
--- OUTSIDE RECORDS SUMMARY | 2024-08-20 11:53 | XMS_ITS | Encounter Summary ---
Author Organization [facility] [employer] Address [id number] [address] [place] [address] Care Team Providers Care Enterprise Software Developer Name Role Phone Bryon Castellanos MD Primary Care Provider Encounter Details Date Type Department Care Team ([facility] st Contact Info) Description 06/28/2024 Orders Only [facility] [address] [facility] [address] [place] [address] Mickey Hunt, DO [address] [facility] [address] [place] [address] Social History Tobacco Use Types Packs/Day Years Used Date Smoking Tobacco: Every Day Cigarettes Smokeless Tobacco: Never Alcohol Use Standard Drinks/Week Comments Yes 21 (1 standard drink = 0.6 oz pu re alcohol) [facility] Utilities Answer Date Recorded In the past 12 months has [facility] [employer], gas, oil, or water company threatened to [...] Info) Description 08/31/2024 10:30 AM EDT Appointment [facility] [address] [place] [address] Kasia Kc MD [address] [place] [address] 09/06/2024 10:00 AM EDT Office Visit [facility] [address] [place] [address] Elizabeth Bourgeois DO [address] [place] [address] documented as of this encounter Goals Goal Patient Goal Type Associated Problems Recent Progress Patient-Stated? Author return to [facility] Yes Tracy Tolbert LSW Note: Evaluation of progress towards goal: under assessment documented as of this encounter Visit Diagnoses Not on filedocumented in this encounter Care Teams Enterprise Software Developer Relationship Specialty Start Date End Date Bryon Castellanos MD [address] [place] [address] [place] [address] PCP - General Internal Medicine 09/06/23 documented as of this encounter
--- OUTSIDE RECORDS SUMMARY | 2024-08-20 11:53 | XMS_ITS | Encounter Summary ---
Author Organization [facility] Address [address] [place] [address] Care Team Providers Care Ancillary Specialist Name Role Phone Unavailable Primary Care Provider Unavailabl e Encounter Details Date Type Department Care Team (Late st Contact Info) Description 03/01/2024 Abstract [facility] [address] [place] [address] Unallocated, Noms Provider, [address] [place] [address] Social History Tobacco Use Types [...]
[2024-08-20 12:29] LABS: INR 2.52; Prothrombin Time 24.4 sec (9.0-11.6)
[2024-08-20 12:40] LABS: Anion Gap 9.3; BUN Creatinine Ratio 10.9; Calcium 8.9 mg/dL (8.5-10.1); Carbon Dioxide 33.6 mmol/L (21.0-32.0); Chloride 105 mmol/L (98-107); Estimated GFR (African America >60 (>=60 mL/min/1.73m^2); Estimated GFR (Non-African Ame 57 (>=60 mL/min/1.73m^2); Glucose 101 mg/dL (74-106); Potassium 3.9 mmol/L (3.5-5.1); Sodium 144 mmol/L (136-145)
== END 2024-08-20 11:49 | disposition home or self-care (01) ==
LOC: LAB 11:48
PROVIDERS: PCP Internal Medicine; Visit Provider Internal Medicine
DX: I25.10 Atherosclerotic heart disease of native coronary artery without angina pectoris (principal)
CPT/HCPCS: 36415; 80048; 85610

== ENCOUNTER 2024-08-23 21:17 | Outpatient (REF) | payer MEDICARE, MEDICAID, SELFPAY ==
[2024-08-23 22:06] LABS: Prothrombin Time 21.6 sec (9.0-11.6)
== END 2024-08-23 21:18 | disposition home or self-care (01) ==
LOC: LAB 21:17
PROVIDERS: PCP Internal Medicine; Visit Provider Internal Medicine
DX: I25.10 Atherosclerotic heart disease of native coronary artery without angina pectoris (principal); R30.0 Dysuria
CPT/HCPCS: 36415; 85610

== ENCOUNTER 2024-09-02 16:37 | Outpatient (REF) | payer MEDICARE, MEDICAID, SELFPAY ==
[2024-09-02 16:51] LABS: Basophils Percent Auto 0.6 % (0.2-2.0); Eosinophils Absolute Auto 0.3 10^3/uL (0.0-0.7); Eosinophils Percent Auto 4.3 % (0.9-7.0); Hematocrit 30.8 % (42.0-54.0); Hemoglobin 9.3 g/dL (14.0-18.0); Immature Granulocytes Abs Auto 0.02 10^3/uL (0.00-0.03); Immature Granulocytes Pct Auto 0.3 % (0.0-0.5); Lymphocytes Percent Auto 14.6 % (20.5-60.0); Mean Corpuscular HGB Conc 30.2 g/dL (29.9-35.2); Mean Corpuscular Hemoglobin 25.3 pg (25.9-34.0); Mean Corpuscular Volume 83.7 fL (80.0-94.0); Mean Platelet Volume 8.4 fL (9.5-13.5); Monocytes Absolute Auto 0.9 10^3/uL (0.3-0.8); Monocytes Percent Auto 13.5 % (1.7-12.0); Neutrophils Absolute Auto 4.6 10^3/uL (1.4-6.5); Neutrophils Percent Auto 66.7 % (43.0-75.0); Platelet Count 548 10^3/uL (150-450); Red Blood Count 3.68 10^6/uL (4.70-6.10); Red Cell Distribution Width 17.6 % (11.0-15.0); White Blood Count 6.9 10^3/uL (4.0-11.0)
[2024-09-02 16:56] LABS: Anion Gap 10.4; BUN Creatinine Ratio 10.3; Calcium 8.7 mg/dL (8.5-10.1); Carbon Dioxide 30.6 mmol/L (21.0-32.0); Chloride 104 mmol/L (98-107); Estimated GFR (African America 59 (>=60 mL/min/1.73m^2); Estimated GFR (Non-African Ame 49 (>=60 mL/min/1.73m^2); Glucose 123 mg/dL (74-106); Sodium 141 mmol/L (136-145)
[2024-09-02 16:57] LABS: INR 1.57; Prothrombin Time 15.9 sec (9.0-11.6)
== END 2024-09-02 16:38 | disposition home or self-care (01) ==
LOC: LAB 16:37
PROVIDERS: PCP Internal Medicine; Visit Provider Internal Medicine
DX: I25.10 Atherosclerotic heart disease of native coronary artery without angina pectoris (principal)
CPT/HCPCS: 36415; 80048; 85025; 85610

== ENCOUNTER 2024-10-07 13:43 | Outpatient (REF) | payer MEDICARE, MEDICAID, SELFPAY ==
[2024-10-07 14:08] LABS: Hematocrit 28.4 % (42.0-54.0); Hemoglobin 8.4 g/dL (14.0-18.0); Immature Granulocytes Abs Auto 0.03 10^3/uL (0.00-0.03); Immature Granulocytes Pct Auto 0.4 % (0.0-0.5); Lymphocytes Absolute Auto 1.3 10^3/uL (1.2-3.8); Mean Corpuscular HGB Conc 29.6 g/dL (29.9-35.2); Mean Corpuscular Hemoglobin 23.7 pg (25.9-34.0); Mean Corpuscular Volume 80.2 fL (80.0-94.0); Platelet Count 432 10^3/uL (150-450); Red Blood Count 3.54 10^6/uL (4.70-6.10); White Blood Count 6.7 10^3/uL (4.0-11.0)
[2024-10-07 14:23] LABS: INR 1.76; Prothrombin Time 17.6 sec (9.0-11.6)
== END 2024-10-07 13:44 | disposition home or self-care (01) ==
LOC: LAB 13:43
PROVIDERS: PCP Internal Medicine; Visit Provider Internal Medicine
DX: I82.91 Chronic embolism and thrombosis of unspecified vein (principal)
CPT/HCPCS: 36415; 85025; 85610

== ENCOUNTER 2024-10-20 12:40 | Outpatient (REF) | payer MEDICARE, MEDICAID, SELFPAY ==
[2024-10-20 13:17] LABS: INR 2.11; Prothrombin Time 20.8 sec (9.0-11.6)
== END 2024-10-20 12:41 | disposition home or self-care (01) ==
LOC: LAB 12:40
PROVIDERS: PCP Internal Medicine; Visit Provider Internal Medicine
DX: I82.91 Chronic embolism and thrombosis of unspecified vein (principal)
CPT/HCPCS: 36415; 85610

== ENCOUNTER 2024-11-04 12:41 | Outpatient (REF) | payer MEDICARE, MEDICAID, SELFPAY ==
[2024-11-04 13:22] LABS: INR 2.15; Prothrombin Time 21.1 sec (9.0-11.6)
== END 2024-11-04 12:42 | disposition home or self-care (01) ==
LOC: LAB 12:41
PROVIDERS: PCP Internal Medicine; Visit Provider Internal Medicine
DX: Z79.01 Long term (current) use of anticoagulants (principal)
CPT/HCPCS: 36415; 85610

== ENCOUNTER 2024-11-11 13:56 | Outpatient (REF) | payer MEDICARE, MEDICAID, SELFPAY ==
--- OUTSIDE RECORDS SUMMARY | 2024-02-16 04:30 | XMS_ITS ---
Author Organization The [facility] in [place] Address [address] [place] [address] Care Team Providers Care Flat Drier Name Role Phone Emanuel GRADY, Bryon Primary Care Provider Unavailab Andrew Vincent Unavailable [phone] REASON FOR VISIT 4 month f/u Encounters Encounter Location Date Provider Diagnosis [facility] [address] [address] 02/16/2024 Andrew Baptiste Plan Of Treatment No Information Progress Notes * PRINCESS Danny RDOB:1960 (64 yo M)Acc No.[id number]:02/16/2024 UNLOCKED PROGRESS NOTE Follow Up Patient: Herberth MEZAy Juanita Provider: Shameka Baptiste MD :1960 A ge:63 Y S ex:Male Date:02/16/2024 Address:[address] [place], [place] [address] Pcp:Bryon Castellanos MD Subjective: * Chief Complaints: * 1 . 4 month f/u. * Medical History: Objective: * Vitals: Assessment: Plan: * Treatment: * * Electronic signature of Andrew Baptiste MD, [id number] on 11/11/2024 at 02:00 PM EDT Sign off status: Pending Visit Status: N /S N/C (No Show/No Charge) * Provider: Shameka Baptiste MD Date: 1 04/17/2023 Generated for Printi ng/Faxing/eTransmitting on: 0 11/11/2024 02:00 PM EDT
--- OUTSIDE RECORDS SUMMARY | 2024-02-25 09:30 | XMS_ITS ---
Author Organization The [facility] in [place] Address [address] [place] [address] Care Team Providers Care Monogram Operator Name Role Phone Emanuel GRADY, Bryon Primary Care Provider Unavailab Andrew Vincent Unavailable [phone] Encounters Encounter Location Date Provider Diagnosis [facility] [address] [place] [address] 02/25/2024 Andrew Baptiste Plan Of Treatment No Information Progress Notes * Danny SÁNCHEZ RDOB:1960 (64 yo M)Acc No.[id number]:02/25/2024 UNLOCKED PROGRESS NOTE Follow Up Patient: Herberth MEZAy Juanita Provider: Shameka Baptiste MD :1960 A ge:63 Y S ex:Male Date:02/25/2024 Address:[address] [place], [place] [address] Pcp:Bryon Castellanos MD Subjective: * Chief Complaints: * * Medical History: Objective: * Vitals: Assessment: Plan: * Treatment: * * Electronic signature of Andrew Baptiste MD, [id number] on 11/11/2024 at 01:59 PM EDT Sign off status: Pending Visit Status: R /S (Rescheduled) * Provider: Shameka Baptiste MD Date: 1 04/27/2023 Generated for Printi ng/Faxing/eTransmitting on: 0 11/11/2024 01:59 PM EDT
--- OUTSIDE RECORDS SUMMARY | 2024-11-11 13:59 | XMS_ITS | Encounter Summary ---
Author Organization [facility] Address [address] [place] [address] Care Team Providers Care Quilting Machine Helper Name Role Phone Unavailable Primary Care Provider Unavailabl e Encounter Details Date Type Department Care Team (Late st Contact Info) Description 09/08/2024 Abstract [facility] [address] [facility] 110 [place] [address] Unallocated, Noms Provider, [address] [place], [place] [id number] Social History Tobacco Use Types Packs/Day Years [...]
--- OUTSIDE RECORDS SUMMARY | 2024-11-11 13:59 | XMS_ITS | Encounter Summary ---
Author Organization [facility] Address [address] [place] [address] Care Team Providers Care High Lift Operator Name Role Phone Unavailable Primary Care Provider Unavailabl e Encounter Details Date Type Department Care Team (Late st Contact Info) Description 05/19/2023 Abstract [facility] 112 [facility] 110 [place] [address] Rao Browning MD 112 [facility] 110 [place], [place] [id number] Social History Tobacco Use Types Packs/Day Years [...]
--- OUTSIDE RECORDS SUMMARY | 2024-11-11 13:59 | XMS_ITS | Encounter Summary ---
Author Organization [facility] Address [address] [place] [address] Care Team Providers Care Distribution Tech Name Role Phone Unavailable Primary Care Provider Unavailabl e Encounter Details Date Type Department Care Team (Late st Contact Info) Description 06/09/2023 Abstract [facility] 112 [facility] 110 [place] [address] Rao Browning MD 112 [facility] 110 [place], [place] [phone] Social History Tobacco Use Types Packs/Day Years [...]
--- OUTSIDE RECORDS SUMMARY | 2024-11-11 13:59 | XMS_ITS | Encounter Summary ---
Author Organization [facility] Address [address] [place] [address] Care Team Providers Care Hotel Assistant General Manager Name Role Phone Unavailable Primary Care Provider Unavailabl e Encounter Details Date Type Department Care Team (Late st Contact Info) Description 06/28/2024 Abstract [facility] [address] [facility] 110 [place] [address] Unallocated, Noms Provider, [address] [place], [place] [address] Social History Tobacco Use Types Packs/Day Years [...]
--- OUTSIDE RECORDS SUMMARY | 2024-11-11 13:59 | XMS_ITS | Encounter Summary ---
Author Organization [facility] Address [address] [place] [address] Care Team Providers Care Metrologist Name Role Phone Unavailable Primary Care Provider Unavailabl e Encounter Details Date Type Department Care Team (Late st Contact Info) Description 06/16/2023 Orders Only [facility] [address] [facility] 110 [place] [address] Bryon Castellanos MD [address] [facility] 110 [place], [place] [phone] Social History Tobacco Use Types Packs/Day Years [...]
--- OUTSIDE RECORDS SUMMARY | 2024-11-11 13:59 | XMS_ITS | Encounter Summary ---
Author Organization [facility] Address [address] [place] [address] Care Team Providers Care Suspect Artist Supervisor Name Role Phone Unavailable Primary Care Provider [...] performed in conjunction with the speech-language pathologist (SHOT PEENING OPERATOR). Various liquid, solid and/or semi-solid barium preparations were used to assess swallowing function. FLUOROSCOPY DOSE AND TYPE: Radiation Exposure Index: DAP 71.761rOgii5, COMPARISON: None HISTORY: ORDERING SYSTEM PROVIDED HISTORY: Other tracheostomy complication (HCC) FINDINGS: [place] thick liquid: Given by teaspoon and straw. [...] were performed in conjunction with the speech-language pathologist(SHOT PEENING OPERATOR). Various liquid, solid and/or semi-solid barium preparations were used to assess swallowing function. FLUOROSCOPY DOSE AND TYPE: Radiation Exposure Index: DAP [id number], COMPARISON: None HISTORY: ORDERING SYSTEM PROVIDED HISTORY: Other tracheostomy complication (HCC) FINDINGS: [place] thick liquid: Given by teaspoon and straw. [...]
--- OUTSIDE RECORDS SUMMARY | 2024-11-11 13:59 | XMS_ITS | Encounter Summary ---
Author Organization [facility] Address [address] [place] [address] Care Team Providers Care Aerosol Line Operator Name Role Phone Unavailable Primary Care Provider Unavailabl e Encounter Details Date Type Department Care Team (Late st Contact Info) Description 10/13/2023 Abstract [facility] 112 [facility] 110 [place] [address] Bryon Castellanos MD 112 [facility] 110 [place], [place] [phone] Social History Tobacco Use Types Packs/Day Years [...]
--- OUTSIDE RECORDS SUMMARY | 2024-11-11 13:59 | XMS_ITS | Encounter Summary ---
Author Organization [facility] Address [address] [place] [address] Care Team Providers Care Ncqa Specialist Name Role Phone Unavailable Primary Care Provider Unavailabl e Encounter Details Date Type Department Care Team (Late st Contact Info) Description 03/31/2024 Abstract [facility] [address] [facility] 110 [place] [address] Unallocated, Noms Provider, [address] [place], [place] [phone] Social History Tobacco Use Types Packs/Day Years [...]
--- OUTSIDE RECORDS SUMMARY | 2024-11-11 13:59 | XMS_ITS | Encounter Summary ---
Author Organization [facility] Address [address] [place] [address] Care Team Providers Care Stock Crane Operator Name Role Phone Unavailable Primary Care Provider Unavailabl e Encounter Details Date Type Department Care Team (Late st Contact Info) Description 06/28/2024 Abstract [facility] [address] [facility] 110 [place] [address] Unallocated, Noms Provider, [address] [place], [place] [phone] Social History Tobacco Use Types Packs/Day Years [...]
--- OUTSIDE RECORDS SUMMARY | 2024-11-11 13:59 | XMS_ITS | Encounter Summary ---
Author Organization [facility] Address [address] [place] [address] Care Team Providers Care Gearcase Assembler Name Role Phone Unavailable Primary Care Provider Unavailabl e Encounter Details Date Type Department Care Team (Late st Contact Info) Description 04/02/2024 Abstract [facility] [address] [facility] 110 [place] [address] Unallocated, Noms Provider, [address] [place], [place] [phone] Social History Tobacco Use Types Packs/Day Years [...]
--- OUTSIDE RECORDS SUMMARY | 2024-11-11 13:59 | XMS_ITS | Encounter Summary ---
Author Organization [facility] Address [id number] [address] [place] [address] Care Team Providers Care Syrup Filterer Name Role Phone Bryon Castellanos MD Primary Care Provider [phone] Encounter Details Date Type Department Care Team (Late st Contact Info) Description 10/21/2024 Telephone [facility] [address] [address] Elizabeth Bourgeois DO [address] [place] [address] Social History Tobacco Use Types Packs/Day Years Used Date Smoking Tobacco: Every Day Cigarettes Smokeless Tobacco: Never Alcohol Use Standard Drinks/Week Comments Yes 21 (1 standard drink = 0.6 oz pu re alcohol) [facility] Utilities Answer Date Recorded In the past 12 months has e [employer], gas, oil, or water company threatened to [...] got money to buy more. Never True 09/13/2024 Within the past 12 months th e food we bought just didn't last and we didn't have money to get more. Never True 09/13/2024 Purpose - Life Answer Date Recorded Purpose and direction in life Unknown Sex and Gender Information Value Date Recorded Sex Assigned at Not on file Legal Sex Male 11:38 AM EDT Gender Identity Not on file Sexual Orientation Not on file documented as of this encounter Miscellaneous Notes * Telephone Encounter - Ce Hinds - 10/21/2024 1:46 PM EDT Lauren is calling to let us know of significant findings on CTA. * Telephone Encounter - Shilpi Rothman LPN - 10/21/2024 1:46 PM EDT Floor Coverer messaged through telephone encounter, secure chat and by phone. documented in this encounter Plan of Treatment Upcoming Encounters Date Type Department Care Team (Late st Contact Info) Description 12/06/2024 2:15 PM EDT Office Visit [facility] [place] [address] [place] [address] [place] [address] [place] [address] [place] [address] documented as of this encounter Goals Goal Patient Goal Type Associated Problems Recent Progress Patient-Stated? Author return to [facility] General Yes Tracy Tolbert LSW Note: Evaluation of progress towards goal: under assessment documented as of this encounter Visit Diagnoses Not on filedocumented in this encounter Care Teams Syrup Filterer Relationship Specialty Start Date End Date Bryon Castellanos MD [address] [place] [address] [place] [address] PCP - General Internal Medicine 09/06/23 documented as of this encounter
--- OUTSIDE RECORDS SUMMARY | 2024-11-11 13:59 | XMS_ITS | Encounter Summary ---
Author Organization [facility] Address [address] [place] [address] Care Team Providers Care Office Executive Name Role Phone Unavailable Primary Care Provider Unavailabl e Encounter Details Date Type Department Care Team (Late st Contact Info) Description 09/16/2024 Abstract K[facility] Family [facility] [address] [facility] 110 [place] [address] Unallocated, Noms Provider, [address] [place], [place] [phone] Social History Tobacco Use Types Packs/Day Years [...]
--- OUTSIDE RECORDS SUMMARY | 2024-11-11 13:59 | XMS_ITS | Encounter Summary ---
Author Organization [facility] Address [address] [place] [address] Care Team Providers Care Mutuel Teller Name Role Phone Unavailable Primary Care Provider Unavailabl e Encounter Details Date Type Department Care Team (Late st Contact Info) Description 01/28/2024 Abstract KYM Ramirez Family [facility] [address] [facility] 110 [place] [address] Unallocated, Noms Provider, [address] [place], [place] [phone] Social History Tobacco Use Types Packs/Day Years [...]
--- OUTSIDE RECORDS SUMMARY | 2024-11-11 13:59 | XMS_ITS | Encounter Summary ---
Author Organization [facility] Address [address] [place] [address] Care Team Providers Care Assistant Casino Shift Manager Name Role Phone Unavailable Primary Care Provider Unavailabl e Encounter Details Date Type Department Care Team (Late st Contact Info) Description 09/08/2024 Abstract K[facility] Family [facility] [address] [facility] 110 [place] [address] Unallocated, Noms Provider, [address] [place], [place] [phone] Social History Tobacco Use Types Packs/Day Years [...]
--- OUTSIDE RECORDS SUMMARY | 2024-11-11 13:59 | XMS_ITS | Encounter Summary ---
Author Organization [facility] Address [address] [place] [address] Care Team Providers Care Junk Dealer Name Role Phone Unavailable Primary Care Provider Unavailabl e Encounter Details Date Type Department Care Team (Late st Contact Info) Description 06/28/2024 Abstract [facility] [address] [facility] 110 [place] [address] Unallocated, Noms Provider, [address] [place], [place] [phone] Social History Tobacco Use Types Packs/Day Years [...]
--- OUTSIDE RECORDS SUMMARY | 2024-11-11 13:59 | XMS_ITS | Encounter Summary ---
Author Organization [facility] Address [address] [place] [address] Care Team Providers Care It Infrastructure Consultant Name Role Phone Unavailable Primary Care Provider Unavailabl e Encounter Details Date Type Department Care Team (Late st Contact Info) Description 01/01/2024 Abstract [facility] [address] [facility] 110 [place] [address] Unallocated, Noms Provider, [address] [place], [place] [phone] Social History Tobacco Use Types Packs/Day Years [...]
--- OUTSIDE RECORDS SUMMARY | 2024-11-11 13:59 | XMS_ITS | Clinical Summary ---
Author Organization [facility] Address [address] [facility] [place] [address] Care Team Providers Care Printing Equipment Mechanic Name Role Phone Bryon Castellanos MD Primary Care Provider [phone] Allergies No known active allergies Medications acetaminophen (TYLENOL) 325 MG tablet 2 tablets by PEG Tube route every 4 hours as needed for Pain or Fever 4 Active Additional Information Patient taking differently:650 mgOralEVERY 4 HOURS PRN, Pain, Fever, Reported on 01/26/2024 doxazosin (CARDURA) 2 MG tablet Take 1 tablet by mouth at bedtime 4 Active Additional Information Patient taking differently: 4 mgOral Nightly,Hold SBP< 100, Reported on 09/07/2024 polyethylene glycol (GLYCOLAX) 17 g packet 1 packet by Per G Tube route daily as needed for Constipation 4 Active Additional Information Patient taking differently:17 gOral DAILY, Reported on 09/07/2024 thiamine mononitrate (THIAMINE) 100 MG tablet Take 1 tablet by mouth daily Give through PEG tube 4 Active Additional Information Patient taking differently:100 mg Oral DAILY,(No instructions reported), Reported on 07/26/2024 Vitamin D (CHOLECALCIFERO L) 25 MCG (1000 UT) TABS tablet 5 tablets by PEG Tube route daily 4 Active Additional Information Patient taking differently:5,000 UnitsOralDAILY, Reported on 09/07/2024 Handicap Placard MISC by Does not apply route Duration: 1 year / Dx: Stroke 1 each 4 Active ipratropium 0.5 mg-albuterol 2.5 mg (DUONEB) 0.5-2.5 (3) MG/3ML SOLN nebulizer solution Inhale 3 mLs into the lungs every 4 hours as needed Active aspirin 81 MG EC tablet 1 tablet daily Activ e cimetidine (TAGAMET) 300 MG tablet Take 1 tablet by mouth 2 times daily For inappropriate sexual behavior. 4 Active ALPRAZolam (XANAX) 0.5 MG tablet Take 1 tablet by mouth in the morning, at noon, and at bedtime. Stop date 10/15/2023 Active bisacodyl 5 MG EC tablet Use as instructed from your physicians office for your colonoscopy prep. 4 tablet 4 Active furosemide (LASIX) 20 MG tablet Take [...] 7 mg by mouth at bedtime Active Active Problems Problem Noted Date Diagnosed [...] Encounters Date Type Department Care Team Description 09/08/2024 12:30 PM EDT - 09/08/2024 1:50 PM EDT Surgery [facility] OR [address] [place] [address] Johny Abad MD DIRECT LARYNGOSCOPY 09/08/2024 12:19 PM EDT Anesthesia Event [facility] OR [address] [place] [address] Nini Mckeon MD Flagg, Amber S, APRN - SHAREBROKER 09/08/2024 10:25 AM EDT - 09/08/2024 3:29 PM EDT Hospital Encounter [facility] OR [address] [place] [address] Johny Abad MD Discharge Disposition: Home or Self Care 09/07/2024 Travel from Last 3 Months Family History [...] drink = 0.6 oz pur e alcohol) [facility] Utilities Answer Date Recorded In the past 12 months has [employer]), gas, oil, or water [employer] threatened to shut off services in your [...] place to sleep or slept in a fci (including now)? No 10/02/2023 Interpersonal Safety ([facility] HRSN) Answer Date Recorded How often [...] eening Answer Date Recorded Physical abuse Denies 09/08/2024 Verbal abuse Denies 09/08/2024 Emotional abuse Denies 09/08/2024 Financial abuse Denies 09/08/2024 Sexual abuse Denies 09/08/2024 Sex and Gender Information Value Date Recorded Sex Assigned at Not on file Legal Sex Male 6:01 PM EST Gender Identity Not on file Sexual Orientation Not on file Last Filed Vital Signs Vital Sign Reading Time Taken Comments Blood Pressure 118/49 09/08/2024 2:30 PM EDT Pulse 69 09/08/2024 2:30 PM EDT Temperature 36 C (96.8 F) 09/08/2024 1:30 PM EDT Respiratory Rate 19 09/08/2024 2:30 PM EDT Oxygen Saturation 100% 09/08/2024 2:30 PM EDT Inhaled Oxygen Concentration - - Weight 99.8 kg (220 lb) 09/08/2024 11:00 AM EDT Height 175.3 cm (5' 9 ) 09/08/2024 11:00 AM EDT Body Mass Index 32.49 09/08/2024 11:00 AM EDT Plan of Treatment Health Maintenance Due Date Last Done Comments Depression Monitoring 1973 HIV screen 1976 Hepatitis C screen 09/28/1979 Pneumococcal 50+ years Vacci ne (1 of 2 - PCV) 1980 Colonoscopy 2006 Colorectal Cancer Screen 2006 FIT/FOBT: Average risk 2006 Fecal-DNA (Cologuard): [place] ge risk 2006 Sigmoidoscopy/CT colonography 2006 Shingles vaccine (1 of 2) 09/28/2011 Respiratory Syncytial Virus (RSV) or age 60 yrs+ (1 - Risk 60-74 years 1-dose series) 2021 COVID-19 Vaccine (1 - 2023-2 5 season) 2023 Annual Wellness Visit (Medicare Advantage) 03/24/2024 Flu vaccine (#1) 10/22/2024 04/19/2016, 01/27/2015, 01/17/2014 Diabetes screen 03/21/2026 03/21/2023, 03/03/2023 DTaP/Tdap/Td [...] Procedure Name Priority Date/Time Associated Diagnosis Comments [place] TRACHEOSTOMY PLANNED SEPARATE PROCEDURE 09/08/2024 12:19 PM EDT Tracheostomy dependent (HCC) Special Needs NICHELLE-OFFICE, NURSING FACILITY, WHEELCHAIR, SIGNS OWN CONSENT. [place] LARYNGOSCOPY FLEXIBLE W/BIOPSY(IES) 09/08/2024 12:19 PM EDT Tracheostomy dependent (HCC) Special Needs NICHELLE-OFFICE, NURSING FACILITY, WHEELCHAIR, SIGNS OWN CONSENT. HEMOGLOBIN A1C Routine 03/21/2023 3:30 AM EST LIPID PANEL [employer] Label Print 03/05/2023 5:37 AM EST from Last 3 Months or Most Recently Relevant to Health Maintenance Results * Hemoglobin A1C (03/21/2023 3:30 AM EST) Hemoglobin A1C 5.4 4.0 - 6.0 % 03/21/2023 3:30 AM EST e-channel Estimated Avg Glucose 108 mg/dL 03/21/2023 3:30 AM EST e-channel Comment: The ADA and AACC recommend providing the estimated average glucose result to permit better patient understanding of their HBA1c result. 03/21/2023 3:30 AM EST us Lex North MD CHEMISTRY ORDERABLES Iva l Result [facility] [address] [place] [address], [facility] [phone] e-channel [address] [place] [address], [facility] [phone] * Lipid Panel (03/05/2023 5:37 AM EST) Cholesterol 183 <200 mg/dL 03/05/2023 5:37 AM EST e-channel Comment: Cholesterol Guidelines: <200 Desirable 200-240 Borderline >240 Undesirable HDL 58 >40 mg/dL 03/05/2023 5:37 AM EST e-channel Comment: HDL Guidelines: <40 Undesirable 40-59 Borderline >59 Desirable LDL Cholesterol 110 0 - 130 mg/dL 03/05/2023 5:37 AM EST e-channel Comment: LDL Guidelines: <100 Desirable 100-129 Near to/above Desirable 130-159 Borderline >159 Undesirable Direct (measured) LDL and calculated LDL are not interchangeable tests. Chol/HDL Ratio 3.2 <5 03/05/2023 5:37 AM EST e-channel Comment: Triglycerides 73 <150 mg/dL 03/05/2023 5:37 AM EST e-channel Comment: Triglyceride Guidelines: <150 Desirable 150-199 Borderline 200-499 High >499 Very high Based on AHA Guidelines for fasting triglyceride, December 2011. 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
--- OUTSIDE RECORDS SUMMARY | 2024-11-11 13:59 | XMS_ITS | Encounter Summary ---
Author Organization [facility] Address [address] [place] [address] Care Team Providers Care Manufacturing Technology Analyst Name Role Phone Unavailable Primary Care Provider Unavailabl e Encounter Details Date Type Department Care Team (Late st Contact Info) Description 10/08/2023 Abstract [facility] 112 [facility] 110 [place] [address] Bryon Castellanos MD 112 [facility] 110 [place], [place] [phone] Social History Tobacco Use Types Packs/Day Years [...]
--- OUTSIDE RECORDS SUMMARY | 2024-11-11 13:59 | XMS_ITS | Encounter Summary ---
Author Organization [facility] Address [address] [place] [address] Care Team Providers Care Director Of Pupil Personnel Program Name Role Phone Unavailable Primary Care Provider Unavailabl e Encounter Details Date Type Department Care Team (Late st Contact Info) Description 01/28/2024 Abstract K[facility] Family [facility] [address] [facility] 110 [place] [address] Unallocated, Noms Provider, [address] [place], [place] [phone] Social History Tobacco Use Types Packs/Day Years [...]
--- OUTSIDE RECORDS SUMMARY | 2024-11-11 13:59 | XMS_ITS | Encounter Summary ---
Author Organization [facility] Address [address] [place] [address] Care Team Providers Care Top Printing Press Operator Name Role Phone Unavailable Primary Care Provider Unavailabl e Encounter Details Date Type Department Care Team (Late st Contact Info) Description 06/29/2024 Abstract [facility] [address] [facility] [address] [place] [phone] Unallocated, Noms Provider, [address] [place], [place] [id number] Social History Tobacco Use Types Packs/Day Years [...]
--- OUTSIDE RECORDS SUMMARY | 2024-11-11 13:59 | XMS_ITS | Encounter Summary ---
Author Organization [facility] Address [address] [place] [address] Care Team Providers Care Bar Tacker Sewing Machine Name Role Phone Unavailable Primary Care Provider Unavailabl e Encounter Details Date Type Department Care Team (Late st Contact Info) Description 03/01/2024 Abstract [facility] [address] [facility] [address] [place] [phone] Unallocated, Noms Provider, [address] [place], [place] [phone] Social History Tobacco Use Types Packs/Day Years [...]
--- OUTSIDE RECORDS SUMMARY | 2024-11-11 13:59 | XMS_ITS | Clinical Summary ---
Author Organization [facility] Address [address] [place] [address] Care Team Providers Care Wire Chief Name Role Phone Unavailable Primary Care Provider Unavailabl e Encounters Date Type Department Care Team Description 11/04/2024 Clinisync Result Encounter [facility] External Department Unsolicited Bryon Castellanos MD 10/20/2024 Clinisync Result Encounter [facility]S External Department Unsolicited Bryon Castellanos MD 10/07/2024 Clinisync Result Encounter NOMS External Department Unsolicited rByon Castellanos MD 09/16/2024 Abstract [facility] [address] [facility] [address] [place] [address] Unallocated, Noms ProviderMD 09/08/2024 Abstract [facility] [address] [facility] [address] [place] [address] Unallocated, Noms ProviderMD 09/08/2024 Abstract [facility] [address] [facility] [address] [place] [address] Unallocated, Noms ProviderMD 09/02/2024 Clinisync Result Encounter NOMS External Department Unsolicited Bryon Castellanos MD 08/23/2024 Clinisync Result Encounter [facility]OMS External Department Unsolicited Bryon Castellanos MD 08/20/2024 Clinisync Result Encounter [facility]OMS External Department Unsolicited Bryon Castellanos MD 08/18/2024 Clinisync Result Encounter NOMS External Department [...] [facility] PROTHROMBIN TIME INR W/O COUM Routine 11/04/2024 11:44 AM EDT [facility] PROTHROMBIN TIME INR W/O COUM Routine 10/20/2024 11:55 AM EDT [facility] PROTHROMBIN TIME INR W/O COUM Routine 10/07/2024 12:56 PM EDT ALL CBC WITH AUTO DIFF Routine 10/07/2024 12:56 PM EDT [facility] PROTHROMBIN TIME INR W/O COUM Routine 09/02/2024 2:45 PM EDT ALL BASIC METABOLIC PANEL Routine 09/02/2024 2:45 PM EDT ALL CBC WITH AUTO DIFF Routine 09/02/2024 2:45 PM EDT [facility] PROTHROMBIN TIME INR W/O COUM Routine 08/23/2024 8:48 PM EDT ALL BASIC METABOLIC PANEL Routine 08/20/2024 11:08 AM EDT [facility] PROTHROMBIN TIME INR W/O COUM Routine 08/20/2024 11:08 AM EDT [facility] PROTHROMBIN TIME INR W/O COUM Routine 08/18/2024 1:35 PM EDT from Last 3 Months Results * (ABNORMAL) [facility] PROTHROMBIN TIME INR W/O COUM (11/04/2024 11:44 AM EDT) Only the most recent of7 resultswithin the time period is included. PROTHROMBIN TIME 21.1(H) 9.0 - 11.6 sec TBH TBH INR 2.15 TBH Comment: DESIRED INR: 2.0-3.0 CONDITIONS NOT LISTED BELOW 2.5-3.5 FOR PROSTHETIC HEART VALVE REPLACEMENT 2.5-3.5 RECURRENT THROMBOSIS 11/04/2024 11:4 4 AM EDT 11/04/2024 12:53 PM EDT Narrative ALDOISYNC - 11/04/2024 1:23 PM EDT [facility] DROP OFF Bryon Castellanos MD [facility] Final Result [facility] * (ABNORMAL) ALL CBC WITH AUTO DIFF (10/07/2024 12:56 PM EDT) Only the most recent of2 resultswithin the time period is included. TBH WBC 6.7 4.0 - 11.0 10 3/uL TBH TBH RBC 3.54(L) 4.70 - 6.10 10 6/uL TBH TBH HGB 8.4(L) 14.0 - 18.0 g/dL TBH TBH HCT 28.4(L) 42.0 - 54.0 % TBH TBH MCV 80.2 80.0 - 94.0 fL TBH TBH MCH 23.7(L) 25.9 - 34.0 pg TBH TBH MCHC 29.6(L) 29.9 - 35.2 g/dL TBH TBH RDW 19.1(H) 11.0 - 15.0 % TBH TBH PLT 432 150 - 450 10 3/uL TBH TBH MPV 8.4(L) 9.5 - 13.5 fL TBH NEUTROPHILS PERCENT AUTO 68.1 43.0 - 75.0 % TBH LYMPHOCYTES PERCENT AUTO 19.1(L) 20.5 - 60.0 % TBH MONOCYTES PERCENT AUTO 7.2 1.7 - 12.0 % TBH TBH EO % 4.9 0.9 - 7.0 % TBH BASOPHILS PERCENT AUTO 0.3 0.2 - 2.0 % TBH IMMATURE GRANULOCYTES PCT AUTO 0.4 0.0 - 0.5 % TBH NEUTROPHILS ABSOLUTE AUTO 4.6 1.4 - 6.5 10 3/uL TBH LYMPHOCYTES ABSOLUTE AUTO 1.3 1.2 - 3.8 10 3/uL TBH MONOCYTES ABSOLUTE AUTO 0.5 0.3 - 0.8 10 3/uL TBH TBH EO # 0.3 0.0 - 0.7 10 3/uL TBH BASOPHILS ABSOLUTE AUTO 0.0 0.0 - 0.1 10 3/uL TBH IMMATURE GRANULOCYTES ABS AUTO 0.03 0.00 - 0.03 10 3/uL TBH 10/07/2024 12:5 6 PM EDT 10/07/2024 1:58 PM EDT Narrative CLINISYNC - 10/07/2024 2:25 PM EDT Bryon CARLSONISYDESTINI Final Result Performing Organization Address City/[facility] Co de Phone Number [facility] * (ABNORMAL) ALL BASIC METABOLIC PANEL (09/02/2024 2:45 PM EDT) Only the most recent of2 resultswithin the time period is included. SODIUM 141 136 - 145 mmol/L TBH POTASSIUM 4.0 3.5 - 5.1 mmol/L TBH CHLORIDE 104 98 - 107 mmol/L TBH CARBON DIOXIDE 30.6 21.0 - 32.0 mmol/L TBH ANION GAP 10.4 TBH GLUCOSE 123(H) 74 - 106 mg/dL TBH BLOOD UREA NITROGEN 15.0 7.0 - 18.0 mg/dL TBH CREATININE 1.46(H) 0.70 - 1.30 mg/dL TBH TBH EGFR-AF SYRIAN 59(L) >=60 mL/min/1.7 3m 2 TBH TBH EGFR-NON AF SYRIAN 49(L) >=60 mL/min/1.7 3m 2 TBH BUN CREATININE RATIO 10.3 TBH CALCIUM 8.7 8.5 - 10.1 mg/dL TBH 09/02/2024 2:45 PM EDT 09/02/2024 4:40 PM EDT Narrative CLINISYNC - 09/02/2024 4:57 PM EDT Bryon CARLSONISYDESTINI Final Result [facility]IN[facility]INI [facility] from Last 3 Months Insurance [place]ICAID [place] [employer] MEDICARE [place]VANTAGE
--- OUTSIDE RECORDS SUMMARY | 2024-11-11 13:59 | XMS_ITS | Encounter Summary ---
Author Organization [facility] Address [address] [place] [address] Care Team Providers Care Kiln Cleaner Name Role Phone Unavailable Primary Care Provider Unavailabl e Encounter Details Date Type Department Care Team (Late st Contact Info) Description 06/04/2023 External Result Encounter [facility] [address] [facility] [address] [place] [phone] Bryon Castellanos MD 112 [facility] [address] [place], [place] [phone] Social History Tobacco Use Types Packs/Day Years [...] PM EDT THIS EXAM WAS PERFORMED AT [facility] CLINICAL INFORMATION: Oropharyngeal dysphagia TECHNIQUE: FL SWALLOW [...] - 06/04/2023 THIS EXAM WAS PERFORMED AT [facility] CLINICAL INFORMATION: Oropharyngeal dysphagia TECHNIQUE: FL SWALLOW [...]
--- OUTSIDE RECORDS SUMMARY | 2024-11-11 13:59 | XMS_ITS | Encounter Summary ---
Author Organization [facility] Address [address] [place] [address] Care Team Providers Care Stiff Neck Loader Name Role Phone Unavailable Primary Care Provider Unavailabl e Encounter Details Date Type Department Care Team (Late st Contact Info) Description 05/05/2024 Abstract [facility] [address] [place] [address] [place] [phone] Unallocated, Noms Provider, [address] [place], [place] [phone] Social History Tobacco Use Types Packs/Day Years [...]
--- OUTSIDE RECORDS SUMMARY | 2024-11-11 13:59 | XMS_ITS | Encounter Summary ---
Author Organization [facility] Address [id number] [address] [place] [address] Care Team Providers Care Implementation Specialist Payroll Name Role Phone Bryon Castellanos MD Primary Care Provider Encounter Details Date Type Department Care Team (Late st Contact Info) Description 10/21/2024 Telephone [facility] [address] [place] [phone] Shilpi Rothman LPN Social History Tobacco Use Types Packs/Day Years Used Date Smoking Tobacco: Every Day Cigarettes Smokeless Tobacco: Never Alcohol Use Standard Drinks/Week Comments Yes 21 (1 standard drink = 0.6 oz pu re alcohol) [facility] Utilities Answer Date Recorded In the [...] encounter Miscellaneous Notes * Telephone Encounter - Shilpi Rothman LPN - 10/21/2024 3:14 PM EDT Radiology called informing that patient has a significant finding on Patients CTA results ordered from . * Telephone Encounter - Florence Osorio - 10/21/2024 3:14 PM EDT Patient has video visit for 10/[address] bourgeois documented in this encounter Plan of Treatment Upcoming Encounters Date Type Department Care Team (Late st Contact Info) Description 12/06/2024 2:15 PM EDT Office Visit [facility] [place] [address] [place] [address] Elizabeth Bourgeois, [address] [facility] [address] [place] [phone] documented as of this encounter Goals Goal Patient Goal Type Associated Problems Recent Progress Patient-Stated? Author return to [facility] Yes Tracy Tolbert LSW Note: Evaluation of progress towards goal: under assessment documented as of this encounter Visit Diagnoses Not on filedocumented in this encounter Care Teams Implementation Specialist Payroll Relationship Specialty Start Date End Date Bryon Castellanos MD [address], [facility] [address] [place] [phone] PCP - General Internal Medicine 09/06/23 documented as of this encounter
--- OUTSIDE RECORDS SUMMARY | 2024-11-11 13:59 | XMS_ITS | Clinical Summary ---
Author Organization [facility] Address [id number] [address] [place] [address] Care Team Providers Care Shotweld Operator Name Role Phone Bryon Castellanos MD Primary Care Provider [phone] Allergies No known active allergies Medications ipratropium-alb [...] chronic respiratory failure with hypoxia and hypercapnia ([facility]) Inhale 3 mL (1.25 mg total) by [...] 1 tablet (0.5 mg total) by mouth as needed in the morning and 1 tablet (0.5 mg total) as needed at noon and 1 tablet (0.5 mg total) as needed in the evening for anxiety. Active warfarin (COUMADIN) 7.5 mg tablet Take 1 tablet (7.5 mg total) by mouth in the evening. Active polyethylene glycol (GLYCOLAX) 17 gram packet Take 17 g by mouth in the morning. Active albuterol (PROVENTIL,VENT MAHAMED) 2.5 mg /3 mL (0.083 %) nebulizer solution Inhale 3 mL (2.5 mg total) by nebulization every 6 (six) hours as needed. 5 Active budesonide (PULMICORT) 0.25 mg/2 mL nebulizer solution Inhale 2 mL (0.25 mg total) by nebulization in the morning. 5 Active cyclobenzaprine (FLEXERIL) 5 mg tablet Take 1 tablet (5 mg total) by mouth every 8 (eight) hours. 5 Active cimetidine (TAGAMET) 300 mg tablet Take 1 tablet (300 mg total) by mouth in the morning and 1 tablet (300 mg total) before bedtime. 4 Active Active Problems Problem Noted Date [...] Encounters Date Type Department Care Team Description 10/28/2024 Telephone [facility] [address] [place] [address] Elizabeth Bourgeois, DO 10/21/2024 Telephone [facility] [address] [place] [address] Shilpi Rothman, OPAL 10/21/2024 Telephone [facility] [place] [address] Elizabeth Bourgeois, DO 10/19/2024 11:13 AM EDT - 10/19/2024 11:59 PM EDT Hospital Encounter [facility] - [facility] Imaging [address] [place] [address] Elizabeth Bourgeois, DO Discharge Disposition: Home 10/19/2024 Travel 09/28/2024 1:11 PM EDT - 09/28/2024 2:53 PM EDT Hospital Encounter [facility] - [facility] [address] [place] [address] Elizabeth Bourgeois, DO Leg edema Discharge Disposition: Home 09/28/2024 1:00 PM EDT - 09/28/2024 1:10 PM EDT Hospital Encounter [facility] [address] [facility] [place] [address] Elizabeth Bourgeois, DO Claudication Discharge Disposition: Home 09/28/2024 Travel 09/13/2024 10:30 AM EDT Office Visit [facility] [address] [place] [address] Elizabeth Bourgeois, DO Claudication (Primary Dx); Leg edema 09/13/2024 Travel 09/06/2024 Telephone [facility] [place] [address] Elizabeth Bourgeois, DO 09/03/2024 [facility]phone [facility] [place] [address] [place] [address] Elizabeth Bourgeois, 09/02/2024 Orders Only [facility] [address] [place] [address] Ref Prov, Not In System 09/01/2024 Telephone [facility] [place] [address] [place] [address] Elizabeth Bourgeois, from Last 3 Months Immunizations Immunization Administration Dates Next Due Tdap 03/02/2017 Social History Tobacco Use Types Packs/Day Years Used Date Smoking Tobacco: Every Day Cigarettes Smokeless Tobacco: Never Alcohol Use Standard Drinks/Week Comments Yes 21 (1 standard drink = 0.6 oz pu re alcohol) [facility] Utilities Answer Date Recorded In the [...] Sign Reading Time Taken Comments Blood Pressure 113/54 09/13/2024 10:23 AM EDT Pulse 84 09/13/2024 10:23 AM EDT Temperature 37.2 C (98.9 F) 06/29/2024 12:08 PM EDT Respiratory Rate 25 06/29/2024 12:20 PM EDT Oxygen Saturation 96% 09/13/2024 10:23 AM EDT Inhaled Oxygen Concentration - - Weight 88.5 kg (195 lb) 09/13/2024 10:23 AM EDT Height 175.3 cm (5' 9 ) 06/27/2024 10:59 AM EDT Body Mass Index 28.8 06/27/2024 10:59 AM EDT Plan of Treatment Upcoming Encounters Date Type Department Care Team (Late st Contact Info) Description 12/06/2024 2:15 PM EDT Office Visit [facility] [place] [address] Elizabeth Bourgeois, DO [address] [place] [address] Health Maintenance Due Date Last Done Comments Tobacco Counseling 1961 Depression Screening 1973 Adult BMI Follow Up Plan 09/28/1979 Zoster (Shingles) Vaccine (1 of 2) 09/28/2011 Influenza Vaccine 11/22/2024 04/19/2016, , 01/17/2014 Adult BMI Screening 09/13/2025 09/13/2024 Tobacco Screening 09/28/2025 09/28/2024 DTaP,Tdap and Td Vaccines (2 - Td or Tdap) 03/02/2027 03/02/2017 Colonoscopy 06/29/2029 06/29/2024, 06/29/2024 Goals Goal Patient Goal Type Associated Problems Recent Progress Patient-Stated? Author return to [facility] General Yes Tracy Tolbert LSW Note: Evaluation of progress towards goal: under assessment Medical Devices Not on file Procedures Procedure Name Priority Date/Time Associated Diagnosis Comments CT CTA ABD AORTA W RUNOFF Routine 10/19/2024 1:12 PM EDT Claudication VASC VENOUS DUPLEX INSUFFICIENCY LOWER BILATERAL Routine 09/28/2024 3:04 PM EDT Leg edema VASC ARTERIAL DOPPLER LOWER BILATERAL MULTI LEVEL/PVR Routine 09/28/2024 3:04 PM EDT Claudication VASC VENOUS DUPLEX LOWER BILATERAL Routine 09/02/2024 9:36 AM EDT PROVATION COLONOSCOPY Routine 06/29/2024 10:48 AM EDT from Last 3 Months or Most Recently Relevant to Health Maintenance Results * CT angiogram abdominal aorta with runoff (10/19/2024 1:12 PM EDT) Anatomical Region Laterality Modality Body, Abdomen, Body Covera N/A Compu dev Tomography 10/21/2024 11:1 1 AM EDT Narrative 10/21/2024 11:51 AM EDT CTA of the abdomen and pelvis and runoff of both lower extremities with 3-D reformats INDICATION: Claudication, peripheral vascular disease. PROCEDURE: Automatic radiation exposure lowering techniques were utilized. Following the intravenous injection of 120 mL of Omnipaque 350, a CTA of the abdomen and pelvis and runoff of both lower extremities with 3-D reformats, including 3 -D Maximum intensity projection reconstructions constructed under concurrent physician supervision on a independent workstation . 3 D images obtained to improve visualization of vascular detail. All CT scans at this facility use dose modulation, iterative reconstruction, and/or weight based dosing when appropriate to reduce radiation dose to as low as reasonably achievable. FINDINGS: Comparison is CT dated 04/19/2024. Gastrostomy tube and IVC filter in place; the infrarenal IVC is small in caliber. At the celiac the abdominal aorta measures 2.7 cm, and below the renal arteries the abdominal aorta measures 2 cm. Atherosclerotic disease of the mesenteric vessels without high-grade stenosis seen. Patent celiac, SMA, and ISAK and patent bilateral renal arteries the right common iliac artery measures 1.9 cm and the proximal right internal iliac artery measures 1.9 cm. Patent bilateral external iliac arteries. Right lower extremity runoff: Patent common femoral artery, profunda, and SFA; there is moderate to severe stenosis in the distal SFA. Patent popliteal artery not well opacified. The runoff vessels are not well visualized on this scan. Left lower extremity runoff: Patent left common femoral artery and profunda. There is thrombosis of the SFA and the constitution of the popliteal artery at the adductor habitus. Patent popliteal artery and three-vessel runoff not well opacified in the distal leg. IMPRESSION: 1. Thrombosis of the left SFA and reconstitution of the popliteal artery at the adductor habitus. 2. Moderate to severe stenosis of the right SFA. 3. Poor visualization of the right runoff vessels. 4. Three vessel runoff on the left. 5. 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 THIS REPORT CONTAINS A SIGNIFICANT RESULT AND/OR RECOMMENDATION, WHICH REQUIRES THE ATTENTION OF THE LICENSED CAREGIVER RESPONSIBLE FOR THIS PATIENT. THEREFORE, I SPECIFICALLY DESIGNATED THIS REPORT TO BE TELEPHONED BY THE RADIOLOGY DEPARTMENT. Finalized by Sola Thomas MD on 10/21/2024 11:51 AM Procedure Note Sola Thomas MD - 10/21/2024 CTA of the abdomen and pelvis and runoff of both lower extremities with3-D reformats INDICATION: Claudication, peripheral vascular disease. PROCEDURE: Automatic radiation exposure lowering techniques were utilized.Following the intravenous injection of 120 mL of Omnipaque 350, a CTA ofthe abdomen and pelvis and runoff of both lower extremities with 3-Dreformats, including 3 -D Maximum intensity projection reconstructions constructed under concurrent physician supervision on a independentworkstation . 3 D images obtained to improve visualization of vasculardetail. All CT scans at this facility use dose modulation, iterativereconstruction, and/or weight based dosing when appropriate to reduceradiation dose to as low as reasonably achievable. FINDINGS: Comparison is CT dated 04/19/2024. Gastrostomy tube and IVCfilter in place; the infrarenal IVC is small in caliber. At the celiac theabdominal aorta measures 2.7 cm, and below the renal arteries theabdominal aorta measures 2 cm. Atherosclerotic disease of the mesentericvessels without high-grade stenosis seen. Patent celiac, SMA, and ISAK and patent bilateralrenal arteries the right common iliac artery measures 1.9 cm and theproximal right internal iliac artery measures 1.9 cm. Patent bilateralexternal iliac arteries. Right lower extremity runoff: Patent common femoral artery, profunda, andSFA; there is moderate to severe stenosis in the distal SFA. Patentpopliteal artery not well opacified. The runoff vessels are not wellvisualized on this scan. Left lower extremity runoff: Patent left common femoral artery andprofunda. There is thrombosis of the SFA and the constitution of thepopliteal artery at the adductor habitus. Patent popliteal artery andthree-vessel runoff not well opacified in the distal leg. IMPRESSION: 1. Thrombosis of the left SFA and reconstitution of the popliteal arteryat the adductor habitus. 2. Moderate to severe stenosis of the right SFA. 3. Poor visualization of the right runoff vessels. 4. Three vessel runoff on the left. 5. 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 THIS REPORT CONTAINS A SIGNIFICANT RESULT AND/OR RECOMMENDATION, WHICHREQUIRES THE ATTENTION OF THE LICENSED CAREGIVER RESPONSIBLE FOR THISPATIENT. THEREFORE, I SPECIFICALLY DESIGNATED THIS REPORT TO BE TELEPHONED BY THERADIOLOGY DEPARTMENT. Finalized by Sola Thomas MD on 10/21/2024 11:51 AM us Elizabeth Bourgeois DO IMG CT ORDERABLES Final Result * Vas venous duplex insufficiency lwr bi (09/28/2024 3:04 PM EDT) Anatomical Region Laterality Modality Vascular Bilateral Ultrasound 09/28/2024 3:40 PM EDT Narrative 09/28/2024 4:49 PM EDT Previous: History of right lower extremity iliofemoral, and femoropopliteal DVT on 02/18/2024 and subsequent thrombectomy on 02/22/2024. Right: Limited visualization due to edema. Non-Dilated partially compressible femoral and popliteal vein with mixed echogenic intraluminal content and spontaneous phasic spectral Doppler signals. Remaining deep visualized venous segments are compressible with spontaneous phasic spectral Doppler waveforms. Superficial veins are compressible. Saphenopopliteal junction was not visualized, intersaphenous vein was noted. Venous reflux time >1000 ms is noted in the popliteal vein. Venous reflux time is less than 500 ms in all evaluated superficial veins. Left: Lower extremity deep veins are compressible with spontaneous phasic spectral Doppler waveforms; superficial veins are compressible without intraluminal content. Venous reflux time is <1000 ms in all evaluated deep and <500 ms in all evaluated superficial veins. Saphenopopliteal junction noted. General: This examination was performed in the upright position. Conclusions: RIGHT: Chronic post thrombotic femoropopliteal venous disease. Popliteal deep vein reflux. No evidence of superficial venous reflux. LEFT: No evidence of deep or superficial vein thrombus or deep or superficial venous reflux of the lower extremity. Procedure Note James Longoria MD - 09/28/2024 Previous: History of right lower extremity iliofemoral, andfemoropopliteal DVT on 02/18/2024 and subsequent thrombectomy on02/22/2024. Right: Limited visualization due to edema. Non-Dilated partiallycompressible femoral and popliteal vein with mixed echogenic intraluminalcontent and spontaneous phasic spectral Doppler signals. Remaining deepvisualized venous segments are compressible with spontaneous phasic spectral Doppler waveforms. Superficial veins arecompressible. Saphenopopliteal junction was not visualized, intersaphenousvein was noted. Venous reflux time >1000 ms is noted in the poplitealvein. Venous reflux time is less than 500 ms in all evaluated superficial veins. Left: Lower extremity deep veins are compressible with spontaneous phasicspectral Doppler waveforms; superficial veins are compressible withoutintraluminal content. Venous reflux time is <1000 ms in all evaluated deepand <500 ms in all evaluated superficial veins. Saphenopopliteal junction noted. General: This examination was performed in the upright position. Conclusions: RIGHT: Chronic post thrombotic femoropopliteal venousdisease. Popliteal deep vein reflux. No evidence of superficial venousreflux. LEFT: No evidence of deep or superficial vein thrombus or deepor superficial venous reflux of the lower extremity. us Elizabeth Bourgeois DO CV VASCULAR ORDERABLES Final Res ult * Vas art doppler lwr bilat mult lev/PVR (09/28/2024 3:04 PM EDT) Anatomical Region Laterality Modality Vascular Bilateral Ultrasound 09/28/2024 3:30 PM EDT Narrative 09/28/2024 4:47 PM EDT Previous: Previous lower extremity arterial physiological exam performed: 02/20/2024; Highest JOSE: Right: 0.63; Left: 0.81. Right: Mildly abnormal PVR waveform contour at all cuff levels. No calf waveform augmentation noted. PT JOSE is 1.02; DP JOSE is 0.93. TBI is 0.43. Hyperemic common femoral and popliteal artery, and Monophasic PT and DP artery CW Doppler waveforms. Left: Mildly abnormal PVR waveform contour at all cuff levels. Borderline calf waveform augmentation noted. PT JOSE is 0.94; DP JOSE is 0.61. TBI is 0.33. Hyperemic common femoral artery, and Monophasic popliteal, PT and DP artery CW Doppler waveforms. Conclusions: BILATERAL: Normal lower extremity JOSE at rest.Abnormal waveforms suggest JOSE may be falsely elevated.TBI is in the range of mild to moderate arterial disease. Procedure Note Jmaes Longoria MD - 09/28/2024 Previous: Previous lower extremity arterial physiological exam performed:02/20/2024; Highest JOSE: Right: 0.63; Left: 0.81. Right: Mildly abnormal PVR waveform contour at all cuff levels. No calfwaveform augmentation noted. PT JOSE is 1.02; DP JOSE is 0.93. TBI is 0.43.Hyperemic common femoral and popliteal artery, and Monophasic PT and DPartery CW Doppler waveforms. Left: Mildly abnormal PVR waveform contour at all cuff levels. Borderlinecalf waveform augmentation noted. PT JOSE is 0.94; DP JOSE is 0.61. TBI is0.33. Hyperemic common femoral artery, and Monophasic popliteal, PT and DPartery CW Doppler waveforms. Conclusions: BILATERAL: Normal lower extremity JOSE at rest.Abnormalwaveforms suggest JOSE may be falsely elevated.TBI is in the range of mildto moderate arterial disease. us Elizabeth Bourgeois DO CV VASCULAR ORDERABLES Final Res ult * Vas venous duplex lwr bilateral (09/02/2024 9:36 AM EDT) Anatomical Region Laterality Modality Vascular Bilateral Ultrasound us Not In System Ref Prov CV VASCULAR ORDERABLES Fi nal Result * Colonoscopy Report (06/29/2024 10:48 AM EDT) Narrative SYSTEMGENERATED, DOCUMENTATION - 06/29/2024 10:48 AM EDT This order has been auto-finalized for image and report archival in PACs. *For full report details, please reach out to your physician. This image is visible to you in MyChart.* us Sandeep Stringer DO IMG OR IMG ORDERABLES Final Result from Last 3 Months or Most Recently Relevant to Health Maintenance Insurance [place]ICA[place] MEDIC[place] Advance Directives * Full Code (Latest Code Status on File) Date Activated Date Inactivated Comments 06/25/2024 1:40 PM 06/29/2024 5:18 PM * Full Code Date Activated Date Inactivated Comments 02/18/2024 11:02 PM 02/23/2024 8:06 PM * Full Code Date Activated Date Inactivated Comments 02/17/2024 9:17 PM 02/18/2024 5:23 PM Care Teams Shotweld Operator Relationship Specialty Start Date End Date Bryon Castellanos MD [address] [facility] [address] [place] [id number] PCP - General Internal Medicine 09/06/23
--- OUTSIDE RECORDS SUMMARY | 2024-11-11 13:59 | XMS_ITS | Encounter Summary ---
Author Organization [facility] Address [address] [place] [address] Care Team Providers Care Limousine Driver Name Role Phone Unavailable Primary Care Provider Unavailabl e Encounter Details Date Type Department Care Team (Late st Contact Info) Description 11/04/2024 Clinisync Result Encounter [facility] External Department Unsolicited Bryon Castellanos MD [address] [facility] [address] [place] [address] Social History Tobacco Use Types Packs/Day Years [...] W/O COUM Routine 11/04/2024 11:44 AM EDT documented in this encounter Results * (ABNORMAL) [facility] PROTHROMBIN TIME INR W/O COUM (11/04/2024 11:44 AM EDT) PROTHROMBIN TIME 21.1(H) 9.0 - 11.6 sec TBH TBH INR 2.15 TBH Comment: DESIRED INR: 2.0-3.0 CONDITIONS NOT LISTED BELOW 2.5-3.5 FOR PROSTHETIC HEART VALVE REPLACEMENT 2.5-3.5 RECURRENT THROMBOSIS 11/04/2024 11:4 4 AM EDT 11/04/2024 12:53 PM EDT Narrative [facility] - 11/04/2024 1:23 PM EDT [facility] DROP OFF us Bryon Castellanos MD [facility] Final [facility] documented in this encounter Visit Diagnoses Not on filedocumented in this encounter
--- OUTSIDE RECORDS SUMMARY | 2024-11-11 14:00 | XMS_ITS | Clinical Summary ---
Author Organization [facility] Address [address] [place] [address] Phone Care Team Providers Care Prepared Foods Service Team Member Name Role Phone Unavailable Primary Care Provider [...] - 02/2023 Added from external infection. Source: [facility] 03/13/2023 Advance Directives * Full Resuscitation (Latest Code Status on File) Date Activated Date Inactivated Comments 03/20/2023 4:47 PM 04/18/2023 5:50 PM Question Answer Comments I have discussed this order with the patient or his/her surrogate and have received informed consent. Yes
--- OUTSIDE RECORDS SUMMARY | 2024-11-11 14:00 | XMS_ITS | Encounter Summary ---
Author [facility] Address [id number] [address] [place] [address] Care Team Providers Care Chicken Catcher Name Role Phone Bryon Castellanos MD Primary Care Provider [phone] Encounter Details Date Type Department Care Team (Late st Contact Info) Description 07/16/2024 Orders Only [facility] [address] [place] [address] Ref Prov, [place] [address] Social History Tobacco Use Types Packs/Day Years Used Date Smoking Tobacco: Every Day Cigarettes Smokeless Tobacco: Never Alcohol Use Standard Drinks/Week Comments Yes 21 (1 standard drink = 0.6 oz pu re alcohol) [facility] Utilities Answer Date Recorded In the [...] PM EDT Office Visit [facility] [place] [address] [place] [address] Elizabeth Bourgeois DO [address] [place] [address] documented as of this encounter Goals Goal Patient Goal Type Associated Problems Recent Progress Patient-Stated? Author return to [facility] Yes Tracy Tolbert LSW Note: Evaluation of [...] on filedocumented in this encounter Care Teams Chicken Catcher Relationship Specialty Start Date End Date Bryon Castellanos MD [address] [address] [place] [address] PCP - General Internal Medicine 09/06/23 documented as of this encounter
--- OUTSIDE RECORDS SUMMARY | 2024-11-11 14:00 | XMS_ITS | Encounter Summary ---
Author Organization [facility] Address [id number] [address] [place] [address] Care Team Providers Care Deicer Repairer Pneumatic Name Role Phone Bryon Castellanos MD Primary Care Provider [phone] Encounter Details Date Type Department Care Team (Late st Contact Info) Description 04/19/2024 Orders Only [facility] [place] [address] [place] [phone] Bryon Castellanos MD [address] [facility] [address] [place] [address] Social History Tobacco Use Types Packs/Day Years Used Date Smoking Tobacco: Every Day Cigarettes Smokeless Tobacco: Never Alcohol Use Standard Drinks/Week Comments Yes 21 (1 standard drink = 0.6 oz pu re alcohol) [facility] Utilities Answer Date Recorded In the past 12 months has [facility] [employer], gas, oil, or water [employer] threatened to shut off services in your [...] PM EDT Office Visit [facility] [place] [address] [place] [address] Elizabeth Bourgeois, DO [address] [facility] [address] [place] [address] documented as of this encounter Goals Goal Patient Goal Type Associated Problems Recent Progress Patient-Stated? Author return to [facility] General Yes Tracy Tolbert LSW Note: [...] Anatomical Region Laterality Modality Vascular Right Ultrasound Bryon Castellanos MD CV VASCULAR ORDERABLES Final R esult documented in this encounter Visit Diagnoses Not on filedocumented in this encounter Care Teams Deicer Repairer Pneumatic Relationship Specialty Start Date End Date Bryon Castellanos MD [address] [facility] [address] [place] [address] PCP - General Internal Medicine 09/06/23 documented as of this encounter
--- OUTSIDE RECORDS SUMMARY | 2024-11-11 14:00 | XMS_ITS | Encounter Summary ---
[facility] Address [id number] [address] [place] [place] [address] Care Team Providers Care Data Warehouse Analyst Name Role Phone Bryon Castellanos MD Primary Care Provider [phone] Encounter Details Date Type Department Care Team (Late st Contact Info) Description 09/02/2024 Orders Only [facility] [address] [place] [phone] Ref Prov, [place] [address] Social History Tobacco Use Types Packs/Day Years Used Date Smoking Tobacco: Every Day Cigarettes Smokeless Tobacco: Never Alcohol Use Standard Drinks/Week Comments Yes 21 (1 standard drink = 0.6 oz pu re alcohol) [facility] Utilities Answer Date Recorded In the [...] Description 12/06/2024 2:15 PM EDT Office Visit [facility] [address] [place] [address] Elizabeth Bourgeois DO [address] [employer] [address] [place] [address] documented as of this encounter Goals Goal Patient Goal Type Associated Problems Recent Progress Patient-Stated? Author return to [facility] Yes Tracy Tolbert LSW Note: Evaluation of progress towards goal: under assessment documented as of this encounter Procedures Procedure Name Priority Date/Time Associated Diagnosis Comments VASC VENOUS DUPLEX LOWER BILATERAL Routine 09/02/2024 9:36 AM EDT documented in this encounter Results * Vas venous duplex lwr bilateral (09/02/2024 9:36 AM EDT) Anatomical Region Laterality Modality Vascular Bilateral Ultrasound us Not In System Ref Prov CV VASCULAR ORDERABLES Fi nal Result documented in this encounter Visit Diagnoses Not on filedocumented in this encounter Care Teams Data Warehouse Analyst Relationship Specialty Start Date End Date Bryon Castellanos MD [address] [place] [phone] PCP - General Internal Medicine 09/06/23 documented as of this encounter
--- OUTSIDE RECORDS SUMMARY | 2024-11-11 14:00 | XMS_ITS | Encounter Summary ---
Author Organization [facility] Address [id number] [address] [place] [address] Care Team Providers Care Motor Brakeman Name Role Phone Bryon Castellanos MD Primary Care Provider [phone] Encounter Details Date Type Department Care Team ([facility] st Contact Info) Description 06/28/2024 Orders Only [facility] [address] [place] [address] Mickey Hunt, DO [address] [place] [address] Social History Tobacco Use Types Packs/Day Years Used Date Smoking Tobacco: Every Day Cigarettes Smokeless Tobacco: Never Alcohol Use Standard Drinks/Week Comments Yes 21 (1 standard drink = 0.6 oz pu re alcohol) [facility] Utilities Answer Date Recorded In the past 12 months has [facility] [employer], gas, oil, or water [employer] threatened to shut off services in your [...] 12/06/2024 2:15 PM EDT Office Visit [facility] [place] [address] [place] [address] Elizabeth Bourgeois M, DO [address] [facility] [address] [place] [address] documented as of this encounter Goals Goal Patient Goal Type Associated Problems Recent Progress Patient-Stated? Author return to [facility] Yes Tracy Tolbert LSW Note: Evaluation of progress towards goal: under assessment documented as of this encounter Visit Diagnoses Not on filedocumented in this encounter Care Teams Motor Brakeman Relationship Specialty Start Date End Date Bryon Castellanos MD [address] [facility], [facility] [address] [place] [address] PCP - General Internal Medicine 09/06/23 documented as of this encounter
--- OUTSIDE RECORDS SUMMARY | 2024-11-11 14:00 | XMS_ITS | Encounter Summary ---
Author Organization [facility] Address [id number] [address] [place] [address] Care Team Providers Care Podiatry Doctor Name Role Phone Bryon Castellanos MD Primary Care Provider [phone] Encounter Details Date Type Department Care Team (Late st Contact Info) Description 09/06/2024 Telephone [facility] [address] [address] Elizabeth Bourgeois DO [address] [place] [address] Social History Tobacco Use Types Packs/Day Years Used Date Smoking Tobacco: Every Day Cigarettes Smokeless Tobacco: Never Alcohol Use Standard Drinks/Week Comments Yes 21 (1 standard drink = 0.6 oz pu re alcohol) [facility] Utilities Answer Date Recorded In the past 12 months has e [employer], gas, oil, or water company threatened to [...] * Telephone Encounter - Ce Hinds - 09/06/2024 8:49 AM EDT Received a call from patient's ECF- testing was done at their facility and is already scanned into media, but appt for today was cancelled due to No Showing testing. SHEILA Gonzalez is asking if patient needs to come to office to be seen as transport can be an issue, theywere actually calling to cancel due to transportation, but I informed her appt was already cancelled. Please let her know at [phone] SHEILA Edward * Telephone Encounter - Florence Osorio - 09/06/2024 8:49 AM EDT Patient has appt with dr bourgeois this morning documented in this encounter Plan of Treatment Upcoming Encounters Date Type Department Care Team (Late st Contact Info) Description 12/06/2024 2:15 PM EDT Office Visit [facility] [address] [place] [address] Elizabeth Bourgeois DO [address] [facility] [address] [place] [address] documented as of this encounter Goals Goal Patient Goal Type Associated Problems Recent Progress Patient-Stated? Author return to [facility] Yes Tracy Tolbert LSW Note: Evaluation of progress towards goal: under assessment documented as of this encounter Visit Diagnoses Not on filedocumented in this encounter Care Teams Podiatry Doctor Relationship Specialty Start Date End Date Bryon Castellanos MD [address] [facility] [address] [place] [address] PCP - General Internal Medicine 09/06/23 documented as of this encounter
--- OUTSIDE RECORDS SUMMARY | 2024-11-11 14:00 | XMS_ITS | Patient Health Record ---
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 05/03/2016 Not-Taking [...] Problem Status W/U Status Risk Notes Problem 86181937 Other chronic pain (G89.29) Active confirmed Problem 20460997 Edema of larynx (J38.4) Active confirmed Problem 423377592 Other diseases o f larynx (J38.7) Active confirmed Problem 971503360 Chronic respiratory failure with hypoxia (J96.11) Active confirmed Problem 185744771 Dorsalgia, unspecified (M54.9) Active confirmed Problem 30267552 Dysphagia, oropharyngeal phase (R13.12) Active confirmed Problem 409904279 Personal history of Methicillin resistant Staphylococcus aureus infection (Z86.14) Active confirmed Problem 014487292 Personal history of nicotine dependence (Z87.891) Active confirmed Problem 777671590 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 Abad 3. chronic trach #6 XLTD with only ENT trach cahnge every 6 months in OR only Problem Hypertension (03666780) HTN (hypertension) (I10) Active confirmed Problem CVA - Cerebrovascular accident (352880105) CVA (cerebral vascular accident) (I63.9) Active confirmed Problem Vitamin D deficiency (05363246) Vitamin D deficiency (E55.9) Active confirmed Problem Chronic constipation (242511232) Chronic constipation (K59.00) Active confirmed Problem Vitamin D deficiency (22612059) Hypovitaminosis D (E55.9) Active confirmed Problem 185835096 Pre-procedural laboratory examination (Z01.812) Active confirmed Problem Leukocytosis (980320877) Leukocytosis (D72.829) Active confirmed Problem Anemia of chronic disease (879938751) Anemia of chronic disease (D63.8) Active confirmed Problem 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 Problem 661435332 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) Active confirmed Vital Signs Heart Rate 88 /min 03/31/2024 Blood pressure diastolic 80 mm Hg 03/31/2024 Oximetry 95 % 03/31/2024 Height 69 in 03/31/2024 Blood pressure systolic 130 mm Hg 03/31/2024 Weight 234 lbs 03/31/2024 BMI 34.55 kg/m2 03/31/2024 Encounters Encounter Location Date Provider Diagnosis [facility] [address] [place] [address] 03/31/2024 Eunice Garcia Acute embolism and thrombosis [...] Date [employer] MEDICARE ADV PLAN [address] [place] [address] [id number] Danny Green Self - patient is the insured 0 [place]ID [place] 2[place] [address] [place], [place] [id number] Danny Green Self - patient is the insured 0 Medical (General) History Medical History History ICD Code Snoring History of esophageal reflux Granular cell tumor, pancreatitis Trach care Surgical History Surgery Date(Month/Year) tracheostomy Previous EGD procedure with bronchoscopy Surgical / procedural 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
--- OUTSIDE RECORDS SUMMARY | 2024-11-11 14:01 | XMS_ITS | Encounter Summary ---
Author Organization [facility] Address [address] [facility], [address] [place] [address] Care Team Providers Care Production Repairer Name Role Phone Bryon Castellanos MD Primary Care Provider Encounter Details Date Type Department Care Team (Latest Contact Info) Description 12/24/2023 Transcribe Orders [facility] [address] [place], [place] [id number] Diana Lewis MD [address] [place] [address], [address] [place] [address] Other tracheostomy complication (HCC) (Primary Dx); Gastrostomy status (HCC); Constipation, unspecified constipation type Social History Tobacco Use Types Packs/Day Years Used Date Smoking Tobacco: Former Cigarettes Passive Smoke Exposure: Never Smokeless Tobacco: Never Alcohol Use Standard Drinks/Week Comments Not Currently 0 (1 standard drink = 0.6 oz pur e alcohol) [facility] Utilities Answer Date Recorded In the past 12 months has [employer] electric, gas, oil, or water company threatened [...] place to sleep or slept in a senior living (including now)? No 10/02/2023 Interpersonal Safety ([facility] HRSN) Answer Date Recorded How often [...] (HCC) Gastrostomy status Constipation, unspecified constipation type documented in this encounter Additional Health Concerns Infection Onset Date Last Indicated Resolved Time MRSA Comment:Nasal- 09/202303/13/2023 10/02/2023 documented as of this encounter Care Teams Production Repairer Relationship Specialty Start Date End Date Bryon Castellanos MD [address] [facility] [address] [place] [address] PCP - General Internal Medicine 10/07/23 documented as of this encounter
[2024-11-11 14:23] LABS: INR 2.45; Prothrombin Time 23.8 sec (9.0-11.6)
== END 2024-11-11 13:57 | disposition home or self-care (01) ==
LOC: LAB 13:56
PROVIDERS: PCP Internal Medicine; Visit Provider Student in an Organized Health Care Education/Training Program
DX: Z79.01 Long term (current) use of anticoagulants (principal)
CPT/HCPCS: 36415; 85610

== ENCOUNTER 2025-01-13 12:55 | Outpatient (REF) | payer MEDICARE, MEDICAID, SELFPAY ==
--- OUTSIDE RECORDS SUMMARY | 2025-01-06 09:15 | XMS_ITS | Encounter Summary ---
Author Organization [employer] tem Address [facility] [id number] [address] [place] [address] Care Team Providers Care Reservations Specialist Name Role Phone Bryon Castellanos MD Primary Care Provider [phone] Reason for Referral * Diagnostic Imaging (Routine) - Pending ReviewSpecialtyDiagnoses / Procedures Referred By ContactReferred To ContactRadiology Diagnoses Iliac aneurysm Procedures CT angiogram abdomen and pelvis Karolyn Trevino APRN-CNP [address] [place] [address] Phone: tel: fax: Referral IDStatusReasonStart DateExpiration DateVisits RequestedVisits [id number] * Vascular (Routine) - AuthorizedSpecialtyDiagnoses / ProceduresReferred By ContactReferred To Contact Diagnoses Claudication PAD (peripheral artery disease) Procedures Vas art doppler lwr bilat mult lev/PVR Karolyn Trevino APRN-CNP [address] [place] [address] Phone: tel: fax: Referral IDStatusReasonStart DateExpiration DateVisits RequestedVisits [id number]/16/202510/16/202611 Reason for Visit * ReasonCommentsFollow-upTesting doneClaudication Encounter Details DateTypeDepartmentCare Team (Latest Contact Info)Hetghjypira83/16/2025 9:15 AM EDTOffice Visit [facility] [place] [address] [place] [address] Elizabeth Bourgeois, DO [address] [place] [address] Karolyn Trevino, PUBLIC POLICY MEDIATOR-SPEEDER MACHINE OPERATOR [address] [place] [address] Claudication (Primary Dx); PAD (peripheral artery disease); Iliac aneurysm; Chronic deep vein thrombosis (DVT) of popliteal vein of right lower extremity ([facility]) Social History Tobacco UseTypesPacks/DayYears UsedDateSmoking Tobacco: Every DayCigarettes Smokeless Tobacco: Never Tobacco Cessation:Ready to Q uit: Not Asked; Counseling Given: Not Answered Alcohol UseStandard Drinks/KytmGtcaztzdFij03 (1 standard drink = 0.6 oz pure alcohol)[facility] UtilitiesAnswerDate RecordedIn the past 12 months has the [place], gas, oil, or water [employer] threatened to shut off services in your home?No 11/25/2024PRAPARE - TransportationAnswerDate RecordedIn the past 12 months, has lack of transportation kept you from medical appointments or from getting medications?No11/25/2024In the past 12 months, has lack of transportation kept you from meetings, work, or from getting things needed for daily living?No 11/25/2024Housing InstabilityAnswerDate RecordedAre you worried or concerned that in the next two months you may not have stable housing that you own, rent or stay in as a part of a household?No11/25/2024hildcareAnswerDate Recorded RygskwbxxHgzjzlj40/12/2019EmploymentAnswerDate RecordedEmploymentUnknown 09/02/2018Hunger ScreeningAnswerDate RecordedWithin the past 12 months we worried whether our food would run out before we got money to buy more.Never True11/25/2024Within the past 12 months the food we bought just didn't last and we didn't have money to get more.Never True11/25/2024Purpose - LifeAnswerDate RecordedPurpose and direction in ohmgPpcyszz95/06/2021ex and Gender Information ValueDate RecordedSex Assigned at BirthNot on fileLegal LctPksn2110/27/2014 11:38 AM EDTGender IdentityNot on fileSexual OrientationNot on filedocumented as of this encounter Last Filed Vital Signs Vital SignReadingTime TakenCommentsBlood Lvigyyge122/7501/06/2025 9:35 AM EDT Ehtdm994301/06/2025 9:35 AM EDTTemperature--Respiratory Rate--Oxygen Saturation-- Inhaled Oxygen Concentration--Iqkybx367.2 kg (254 lb)01/06/2025 9:35 AM EDT Height--Body Mass Index37.5109 2:11 AM EDTdocumented in this encounter Patient Instructions * Patient Instructions* SALVATORE Turner - 01/06/2025 9:15 AM EDT [phone] fax to [facility] No plans for surgical intervention to either leg. Will continue to monitor arterial studies every 6 months. Please call clinic if Danny develops any lower extremity wounds or if his claudication pain starts to interfere with his quality of life. documented in this encounter Progress Notes * SALVATORE Turner - 01/06/2025 9:15 AM EDT Images from the original note were not included. CC: Chief Complaint Patient presents with Follow-up Claudication 64 y.o. male with h/o vocal cord/laryngeal, mass, trach dependent, CVA w/ R hemiparesis, HLD, HTN, and recent admission 02/15-02/23/24 w/ extensive acute RLE DVT. -02/22/2024: venogram w/ pharmacomechanical thrombectomy (TPA/angiojet), POBA L common iliac vein (Dr. Servin) 03/01/24 (Dr. Lizzie Kc): Continued w/ bilat LE edema however reported improved s/p intervention. Continue w/ compression, elevation, and eliquis. Repeat venous duplex and RTC in 6 mo. Nursing facility called 04/15/24 and requested an earlier apt due to concerns for RLE edema w/ reported DVT (04/15/24: RLE US report (per nurse) - R femoropopliteal DVT) 04/19/24: Pt arrived at office apt w/ transport and limited records from facility. Pt poor historianand limited ability to participate. Called [facility] and discussed concerns directly w/ pt's nurse. She reports pt had US completed at SNF due to c/o RLE pain and edema. Pt reported to continue on eliquis w/ no missed doses that nurse was aware of. She states that he has compression/crystal wraps ordered by that he hasn't been wearing them. Notes he was using compression sleeve and stockings until the edema worsened and then he no longer wanted to wear them. Pt sits in chair for majority of the day w/ his legs in the dependent position. Ddimer, CTV ordered. Switch to coumadin. 09/13/24: Pt presented to office w/ aid from facility who was very familiar w/ pt and his history. Notes RLE continues w/ ongoing edema w/ LLE now painful x 1 mo. Previously was able to stand and assist w/ position transfers etc however in last 1 mo unable to bear weight or walk due to LLE pain. No open wounds/tissue loss. Denies chest pain. No pedal skin discoloration. No rest pain. Denies trauma. 01/06/25: Pt presents with RN and aid from facility. Danny wears CRYSTAL wrap for compression to RLE mara does not like the compression stocking. He endorses pain in his LLE when laying in bed and transferring though states it does not affect his quality of life. No ulcerations to LLE. CTA reviewed which demonstrates right common and internal iliac aneurysms measuring 1.9 cm each. 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[facility]) Leg swelling Acute deep vein thrombosis (DVT) of proximal vein of right lower extremity ([facility]) Acute on chronic respiratory failure with hypoxia and hypercapnia ([facility]) Acute respiratory failure with hypoxia and hypercapnia ([facility]) Anemia, unspecified Chronic hyponatremia Cognitive communication deficit Abnormal posture Vocal cord cyst Vitamin D deficiency, unspecified Urinary tract infection without hematuria Stridor Pneumonia, unspecified organism Pneumonia of right lower lobe due to infectious organism Pain, unspecified Other tracheostomy complication ([facility]) Other general symptoms and signs Other abnormalities of gait and mobility Oropharyngeal dysphagia Nontraumatic intracerebral hemorrhage, unspecified ([facility]) Hemiplegia and hemiparesis following cerebral infarction affecting right dominant side ([facility]) History of alcohol abuse History of hypertension Hypomagnesemia Intrapontine hemorrhage ([facility]) 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 ([facility]) Nontraumatic intracerebral hemorrhage, unspecified ([facility]) Constipation Cramp and spasm Depression Essential (primary) hypertension Copious oral secretions Excessive salivation Fever Generalized muscle weakness Gingival hyperplasia Glottic edema Acute cystitis with hematuria Seizure ([facility]) Guaiac positive stools Iron deficiency anemia Ileus ([facility]) Supratherapeutic INR Upper GI bleed Class 2 obesity due to excess calories with body mass index (BMI) of 37.0 to 37.9 in adult There were no vitals taken for this visit. Past Medical History: Diagnosis Date Bulging lumbar disc Essential (primary) hypertension 05/14/2023 Sleep apnea Vocal cord polyp Past Surgical History: Procedure Laterality Date COLONOSCOPY DIAGNOSTIC / SCREENING N/A 06/29/2024 Performed by Sandeep Stringer DO at [facility] ESOPHAGOGASTRODUODENOSCOPY BIOPSY Left Lateral 06/28/2024 Performed by Sandeep Stringer DO at [facility] ESOPHAGOSCOPY N/A 11/27/2017 Performed by Darwin Stewart MD at [facility] MICRO DIRECT LARYNGOSCOPY LASER FS Bilateral 11/27/2017 Performed by Darwin Stewart MD at [facility] TONGUE SURGERY VENOGRAM RIGHT FEMORAL AND ILAIC VEINS, IVC VENOGRAM, CATHETER DIRECTED THROMBOLYSIS, MAECHAICAL THROMBECTOMY, ANGIOPLASTY COMMON ILIAC VEIN Right 02/22/2024 Performed by Nessa Servin MD at [facility] SPECIAL PROC VOCAL CORD SURGERY VOCAL CORD SURGERY polyp removal ROS: Review of Systems Respiratory: Negative for shortness of breath. Cardiovascular: Positive for leg swelling. Negative for chest pain. Personal history of: positive: CVA positive: DVT, PE positive: CAD, HTN negative: PAD, PVD, claudication negative: dilated LE veins/varicose veins negative: DM Physical Exam: Physical Exam Vitals and nursing note reviewed. Constitutional: Appearance: Normal appearance. HENT: Head: Normocephalic and atraumatic. Comments: Trach dependent Pulmonary: Effort: Pulmonary effort is normal. Musculoskeletal: General: Swelling present. Right lower leg: Edema present. Comments: Entire RLE (especially foot) very edematous RLE hemiparesis Skin: General: Skin is warm and dry. Neurological: Mental Status: He is alert and oriented to person, place, and time. Mental status is at baseline. Psychiatric: Attention and Perception: Attention normal. Mood and Affect: Mood normal. Speech: Speech normal. Behavior: Behavior is cooperative. Testing Reviewed: Venous reflux study 09/28/24: Previous: History of right lower extremity iliofemoral, and femoropopliteal DVT on 02/18/2024 and subsequent thrombectomy on 02/22/2024. Right: Limited visualization due to edema. Non-Dilated partially compressible femoral and poplitealvein with mixed echogenic intraluminal content and spontaneous [...] superficial venous reflux of the lower extremity. JOSE with PVR 09/28/24 Previous: Previous lower extremity arterial physiological exam [...] range of mild to moderate arterial disease. CTA abdomen pelvis 10/21/24 FINDINGS: Comparison is CT dated 04/19/2024. Gastrostomy tube and IVC filter in place; the infrarenal IVC is small in caliber. At the celiac the abdominal aorta measures 2.7 cm, and below the renal arteries the abdominal aorta measures 2 cm. Atherosclerotic disease of the mesenteric vessels without high-grade stenosis seen. Patent celiac, SMA, and ISAK and patent bilateral renal arteries the rightcommon iliac artery measures 1.9 cm and the proximal right internal iliac artery measures 1.9 cm. Patent bilateral external iliac arteries. Right lower extremity runoff: Patent common femoral artery, profunda, and SFA; there is moderate tosevere stenosis in the distal SFA. Patent popliteal artery not well opacified. The runoff vessels are not well visualized on this scan. Left lower extremity runoff: Patent left common femoral artery and profunda. There is thrombosis ofthe SFA and the constitution of the popliteal [...] internal iliac arteries measuring 1.9 cm each. BMP: Lab Results Component Value Date SODIUM 138 11/26/2024 K 3.8 11/26/2024 CL 107 11/26/2024 CL 101 06/29/2024 CO2 24 11/26/2024 BUN 6 11/26/2024 CREATININE 1.10 11/26/2024 CREATININE 1.15 06/29/2024 EGFR 75 11/26/2024 EGFR 72 06/29/2024 GLU 103 (H) 11/26/2024 GLU 106 (H) 11/25/2024 BNP: Lab Results Component Value Date BNP <5 06/25/2024 Troponin: Lab Results Component Value Date TROPONINI 0.02 11/10/2019 HgBA1c: No results found for: HGBA1C Lipid Panel: Lab Results Component Value Date TRIG 252 (H) 05/17/2012 04/19/24 - CTV abd/pelvis: Assessment/Plan of care: Please note that total time spent was 20 minutes: Including but not limited to: Preparing to see the patient (e.g., review of tests) Obtaining and/or reviewing separately obtained history Performing a medically appropriate examination and evaluation Counseling and educating the patient/family/caregiver Ordering medications, tests, or procedures In office [facility] imaging and review of findings Documenting visit details Greater than 50% was devoted to counseling and coordination of care, discussing the normal functionof deep and superficial venous systems, and explaining the pathologic processes that lead to ambulatory venous hypertension and leg symptoms of heaviness, fatigue, etcetera. 64 y.o. male with h/o vocal cord/laryngeal, mass, trach dependent, CVA w/ R hemiparesis, HLD, HTN, and recent admission 02/15-02/23/24 w/ extensive acute RLE DVT. -02/22/2024: venogram w/ pharmacomechanical thrombectomy (TPA/angiojet), POBA L common iliac vein (Dr. Servin) -04/15/24: RLE US report (per nurse) - R femoropopliteal DVT Deep vein thrombosis: Acute RLE DVT treated w/ thrombectomy 02/2024. Recurrent/new DVT 03/2024 (eliquis failure) Anticoag: coumadin -- duration: indefinite. +IVC filter CTV 04/19/24: no iliac vein/IVC thrombosis Venous reflux studies demonstrate non-Dilated partially compressible femoral and popliteal vein LE edema: suspect mulifactorial due to previous CVA w/ hemiparesis/limited mobility, previous DVT, and lymphedema Recommend pt wear compression and elevate LE as much as able. Venous insufficiency demonstrated reflux though not significant. Explained to Danny that no intervention is needed unless/until the reflux is more significant and he has venous claudication affectinghis quality of life. Bilat LE pain: JOSE/PVR and CTA abd/pelvis w/ runoff A. Right common iliac and internal iliac artery aneurysms 1.9 cm each. Will continue to monitor with surveillance CTA q12 months. B. JOSE demonstrated moderate arterial disease in the LLE. No ulcerations at this time. Danny endorses pain in LLE when laying in bed and transferring though this not significantly affect his quality of life. Instructed him and staff to call office if he develops ulcers to either leg and if his claudication pain gets worse. Return to clinic 6 months with JOSE prior RTC 12 months with CTA abdomen pelvis to monitor right internal iliac aneurysm. Karolyn Pride??, BODY SPECIALIST-C Vascular Surgery SALVATORE Turner 01/06/25 1008 documented in this encounter Plan of Treatment DateTypeDepartmentCare Team (Latest Contact Info)Anfmlncsbac13/17/2026 10:30 AM EDTAppointment [facility] [address] [place] [address] 07/14/2025 10:00 AM EDTOffice Visit [facility] [place] [address] [place] [address] Karolyn Trevino APRN-CNP [address] [facility] [address] NameTypePriorityAssociated DiagnosesOrder ScheduleVas art doppler lwr bilat mult lev/PVRVascular UltrasoundRoutine Claudication PAD (peripheral artery disease) Expected: 07/07/2025 (Approximate), Expires: 01/06/2026T angiogram abdomen and pelvisImagingRoutine Iliac aneurysm Expected: 01/06/2026 (Approximate), Expires: 01/14/2027Creatinine includes GFR, serumLabRoutine Iliac aneurysm 1 Occurrences starting 01/06/2025 until 01/06/2026documented as of this encounter Goals GoalPatient Goal TypeAssociated ProblemsRecent ProgressPatient-Stated?Author [facility] Zulma Cardenas, SHEILA Note: Evaluation of progress towards goal: Patient is from [facility] in [place] documented as of this encounter Visit Diagnoses Diagnosis Claudication- Primary Unspecified peripheral vascular disease PAD (peripheral artery disease) Unspecified peripheral vascular disease Iliac aneurysm Aneurysm of iliac artery Chronic deep vein thrombosis (DVT) of popliteal vein of right lower extremity ([facility]) documented in this encounter Care Teams Team MemberRelationshipSpecialtyStart DateEnd Date Bryon Castellanos MD [address] [facility] [address] [place] [id number] PCP - GeneralInternal Medicine09/06/23documented as of this encounter
--- OUTSIDE RECORDS SUMMARY | 2025-01-13 13:00 | XMS_ITS | Clinical Summary ---
Author Organization GoVoluntr tem Address [id number] [address] [place] [address] Care Team Providers Care Beater Out Name Role Phone Bryon Castellanos MD Primary Care Provider [phone] Allergies No known active allergies Medications MedicationSigDispense QuantityRefillsLast FilledStart DateEnd DateStatus ipratropium-albuteroL (DUONEB) 0.5 mg-3 mg(2.5 mg base)/3 mL nebulizer Inhale 3 mL every 4 (four) hours as needed for shortness of breath.04/16/2023 Active doxazosin (CARDURA) 2 mg tablet Take 2 tablets (4 mg total) by mouth nightly. Hold for SBP <100, P<60005/14/2023 Active cholecalciferol, vitamin D3, 5,000 units tablet 1 tablet (5,000 Units total) in the morning.04/16/2023ctive furosemide (LASIX) 40 mg tablet Indications:edemaTake 1 tablet (40 mg total) by mouth daily Indications: visible water retention.Active acetaminophen (TYLENOL) 325 mg tablet Take 2 tablets (650 mg total) by mouth every 4 (four) hours as needed for pain or headaches (Temperature greater than 38.3 C).02/23/2024ctive guaiFENesin (MUCINEX) 600 mg tablet extended release 12hr Take 1 tablet (600 mg total) by mouth every 12 (twelve) hours.02/23/2024ctive thiamine HCl (VITAMIN B-1) 100 mg tablet Take 1 tablet (100 mg total) by mouth in the morning.02/24/2024ctive bisacodyL (DULCOLAX) 10 mg suppository Insert 1 suppository (10 mg total) into the rectum daily as needed for constipation.02/23/2024ctive Additional Information Patient not taking.Reason: Other, Reported on 01/06/2025 levalbuterol (XOPENEX) 1.25 mg/3 mL nebulizer solution Indications:Acute on chronic respiratory failure with hypoxia and hypercapnia (CMS-HCC)Inhale 3 mL (1.25 mg total) by nebulization every 6 (six) hours as needed for wheezing or shortnessof breath.02/23/2024ctive citalopram (CeleXA) 20 mg tablet Take 1 tablet (20 mg total) by mouth in the morning.02/26/2024ctive traMADoL (ULTRAM) 50 mg tablet Take 1 tablet (50 mg total) by mouth every 6 (six) hours as needed for pain. Active ALPRAZolam (XANAX) 0.5 mg tablet Indications:anxietyTake 1 tablet (0.5 mg total) by mouth in the morning and 1 tablet (0.5 mg total) at noon and 1 tablet (0.5 mg total) in the evening. Indications: anxious.Active polyethylene glycol (GLYCOLAX) 17 gram packet Take 17 g by mouth in the morning.Active albuterol (PROVENTIL,VENTOLIN) 2.5 mg /3 mL (0.083 %) nebulizer solution Inhale 3 mL (2.5 mg total) by nebulization every 6 (six) hours as needed. 5Active budesonide (PULMICORT) 0.25 mg/2 mL nebulizer solution Inhale 2 mL (0.25 mg total) by nebulization in the morning.5Active cyclobenzaprine (FLEXERIL) 5 mg tablet Take 1 tablet (5 mg total) by mouth 3 (three) times a day as needed for muscle spasms.5Active cimetidine (TAGAMET) 300 mg tablet Take 1 tablet (300 mg total) by mouth in the morning and 1 tablet (300 mg total) before bedtime.09/29/2023ctive diphenhydrAMINE-zinc acetate (BENADRYL) cream Apply 1 Application topically 4 (four) times a day as needed for itching (apply to peg tube site asneeded for itching).Active DULoxetine (CYMBALTA) 30 mg capsule Take 1 capsule (30 mg total) by mouth in the morning.Active warfarin (COUMADIN) 6 mg tablet Indications:deep vein thrombosis preventionTake 1 tablet (6 mg total) by mouth in the evening. Indications: deep vein thrombosis prevention.5Active pantoprazole (PROTONIX) 40 mg EC tablet Take 1 tablet (40 mg total) by mouth in the morning.5Active ferrous sulfate 325 (65 FE) MG tablet Take 1 tablet (325 mg total) by mouth in the morning.5Active Active Problems ProblemNoted DateDiagnosed DateSupratherapeutic INR11/24/2024Upper GI bleed 11/24/2024lass 2 obesity due to excess calories with body mass index (BMI) of 37.0 to 37.9 in adult11/24/20247294Hoivr26/02/2025Guaiac positive dbyyhw0306/28/2024 Iron deficiency ssdydy5106/28/20243176Fknqehh09/04/2025History of alcohol abuse 02/19/2024History of opyjalexpozh81/28/2024cute cystitis with hematuria 02/19/2024Tracheostomy wfpjqifmrl66/27/2024Leg znwzmovj53/27/2024cute deep vein thrombosis (DVT) of proximal vein of right lower zxucqwzjd07/27/2024nasarca 02/17/2024Other tracheostomy omhertuikdor72/11/6237Rekcpmsivkzfmy44/22/2024ramp and spasm08/13/2023nemia, secrxrxdraq40/21/2024ognitive communication deficit 05/14/2023bnormal pgyzkpv8605/14/2023Vitamin D deficiency, /21/2024 Pain, /21/2024Other general symptoms and signs05/14/2023Other abnormalities of gait and cmgsayyp61/21/2024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05/14/2023Nontraumatic intracerebral hemorrhage, jhixyusgand94/21/2024Essential (primary) hnwxesbmrxrh35/21/2024Generalized muscle /21/2024ight ttfskoggkdw61/19/5330Ypsbxikwtn69/03/2024Urinary tract infection without /31/2024Hemiplegia and hemiparesis following cerebral infarction affecting right dominant side04/18/20235123Dfani14/24/2023S/P percutaneous endoscopic gastrostomy (PEG) tube ftgjyvluv97/23/2023neumonia, unspecified sdmprepe88/23/2023neumonia of right lower lobe due to infectious crbintpb68/23/9036Inpymcrstgrv61/23/2023Oropharyngeal lidlopwia90/22/2023opious oral pxvcywtlob28/20/2023Excessive dchorgcwmx47/20/2023hronic hyponatremia 03/11/2023cute on chronic respiratory failure with hypoxia and hypercapnia 03/10/2023Vocal cord cyst03/10/2023cute respiratory failure with hypoxia and khhktjzsrby53/12/2759Nvqzwea81/12/2023Intrapontine ncbnlbmuud49/12/2023lottic edema03/04/2023Nontraumatic intracerebral hemorrhage, zmocvjlgsgo51/11/2023 Gastroesophageal reflux qqduixo1408/14/20176785Dsvnnbwzvl89/15/2018Other acute insvlfcsc55/15/2018Gingival qsqragiwdkd41/26/2015 Encounters DateTypeDepartmentCare RtnrDmdtwnjpxyi38/16/2025 9:15 AM EDTOffice Visit [facility] [address] [place] [address] Elizabeth Bourgeois, Karolyn Escobar, ENVIRONMENTAL RESEARCH PROJECT MANAGER-HEALTH CARE AIDE Claudication (Primary Dx); PAD (peripheral artery disease); Iliac aneurysm; Chronic deep vein thrombosis (DVT) of popliteal vein of right lower extremity ([facility])01/06/20259852Vnmlon15/23/7357Rboixr34/22/2025Telephone [facility] [address] [place] [address] Sarai Friend MA 11/23/2024 4:23 PM EDT - 11/26/2024 12:45 PM EDTHospital Encounter [facility] [address] [place] [address] Perry Sanchez MD Muhammad, Ruqiyya T, MD Ileus ([facility]) (Primary Dx); Upper GI bleed Discharge Disposition: [facility]11/23/2024Travel 10/28/2024Telephone [facility] [address] [place] [address] Elizabeth Bourgeois, DO 10/21/2024Telephone [facility] [address] [place] [address] Shilpi Rothman LPN 10/21/2024Telephone [facility] [address] [place] [address] Elizabeth Bourgeois, 10/19/2024 11:13 AM EDT - 10/19/2024 11:59 PM EDTHospital Encounter [facility] [address] [place] [address] Elizabeth Bourgeois, DO Discharge Disposition: Home10/19/2024Travelfrom Last 3 Months Immunizations ImmunizationAdministration DatesNext LlaYohe40/10/2017 Social History Tobacco UseTypesPacks/DayYears UsedDateSmoking Tobacco: Every DayCigarettes Smokeless Tobacco: Never Tobacco Cessation:Ready to Q uit: Not Asked; Counseling Given: Not Answered Alcohol UseStandard Drinks/VhzdVssflnxbQjs93 (1 standard drink = 0.6 oz pure alcohol)[facility] UtilitiesAnswerDate RecordedIn the past 12 months has the [employer], [employer], oil, or water [employer] threatened to shut off services in your [...] stay in as a part of a household?No09/04/2025ChildcareAnswerDate Recorded CmnzarbvuLtomovj22/12/2019EmploymentAnswerDate RecordedEmploymentUnknown 09/02/2018Hunger ScreeningAnswerDate RecordedWithin the past 12 months we worried whether our food would run out before we got money to buy more.Never True11/25/2024Within the past 12 months the food we bought just didn't last and we didn't have money to get more.Never True11/25/2024Purpose - LifeAnswerDate RecordedPurpose and direction in ltrhVbeiabz80/06/2021ex and Gender Information ValueDate RecordedSex Assigned at BirthNot on fileLegal XjqDuhh3810/27/2014 11:38 AM EDTGender IdentityNot on fileSexual OrientationNot on file Last Filed Vital Signs Vital SignReadingTime TakenCommentsBlood Dqwydxnx482/7510 9:35 AM EDT Spztz2833 9:35 AM RNTKheelxecltu47.2 ??C (99 ??F)11/26/2024 11:32 AM EDT Respiratory Zalr444411/26/2024 11:32 AM EDTOxygen Fceqqigesg32%11/26/2024 11:32 AM EDTInhaled Oxygen Concentration--Jnaoum216.2 kg (254 lb)01/06/2025 9:35 AM EDT Odadtz419.3 cm (5' 9 )11/24/2024 2:11 AM EDTBody Mass Index37.5109 2:11 AM EDT Plan of Treatment DateTypeDepartmentCare Team (Latest Contact Info)Wlqvkptcvou51/17/2026 10:30 AM EDTAppointment [facility] [address] [place] [address] 07/14/2025 10:00 AM EDTOffice Visit [facility] [address] [place] [address] Karolyn Trevino, ENVIRONMENTAL RESEARCH PROJECT MANAGER-HEALTH CARE AIDE [address] [place] [address] Health MaintenanceDue DateLast DoneCommentsStatin Use: Wdjlyvnadpixxk22/07/1962 Tobacco Rjyyvwpujf12/07/1962Depression Cnzpcxbiv84/07/1974Adult BMI Follow Up Plan09/28/1979Zoster (Shingles) Vaccine (1 of 2)09/28/2011Influenza Vaccine 5004/19/2016, 01/27/2015, 01/17/2014dult BMI Xbcvelhto04/16/2026 01/06/2025Tobacco Xpqbpetnz56DTaP,Tdap and Td Vaccines (2 - Td or Tdap)Colonoscopy, 06/29/2024 Goals GoalPatient Goal TypeAssociated ProblemsRecent ProgressPatient-Stated?Author [facility] Zulma Cardenas RN Note: Evaluation of progress towards goal: Patient is from [facility] in [facility] Devices Not on file Procedures Procedure NamePriorityDate/TimeAssociated DiagnosisCommentsPROTIME & INRRoutine 11/26/2024 5:12 AM EDT EUPWNCBCHGbhctdp63/05/2025 5:12 AM EDT COMPREHENSIVE METABOLIC EZQNDUncgabt15/05/2025 5:12 AM EDT CBC WITH AUTO BYSTLSURGVEFBgritoj37/05/2025 5:11 AM EDT HEMOGLOBIN AND HEMATOCRIT, GOBEAAajmyye28/04/2025 9:03 PM EDT HEMOGLOBIN AND HEMATOCRIT, YLXWZRtuyrhb31/04/2025 1:37 PM EDT NRAZTXOLOIggaoas43/04/2025 1:37 PM EDT BEDSIDE OFWZHLSSpohjoq95/04/2025 11:15 AM EDT TRANSFUSE RED BLOOD DMIQTQxiirwv22/04/2025 10:35 AM EDTPROTIME & INRRoutine 11/25/2024 4:27 AM EDT BYLXDJGUXIvbwvdc26/04/2025 4:27 AM EDT COMPREHENSIVE METABOLIC JDSIITphechs47/04/2025 4:27 AM EDT CBC WITH AUTO WWZCLZOXDIWLCguneum37/04/2025 4:27 AM EDT HEMOGLOBIN AND HEMATOCRIT, SJVFJBqugjyb22/03/2025 9:30 PM EDT EXTRA TUBES SST ETXGccmlta93/03/2025 10:02 AM EDT EXTRA TUBES LAVENDER NKIBgpuoka10/03/2025 10:02 AM EDT EXTRA TUBES PST UHCNintwmp82/03/2025 10:02 AM EDT COBHCNIQHQjyfequ97/03/2025 10:02 AM EDT COMPREHENSIVE METABOLIC IWBLWPhhscfe84/03/2025 10:02 AM EDT CBC WITH AUTO SSDJWFGADUPHCbimfuy32/03/2025 10:02 AM EDT EXTRA JIOREJuxdjdu14/03/2025 10:02 AM EDT PROTIME & JNBLmfpojh14/03/2025 10:02 AM EDT OCCULT BLOOD X 1, FVIYTCvsqeub50/03/2025 9:17 AM EDT GI PANEL STOOL PATHOGEN ZTUTDKUOS57/03/2025 8:45 AM EDT OXYGEN THERAPY, MID-KOFNKIdqbxdp82/03/2025 2:45 AM QTHYZBXZUPHLHAHDV55/03/2025 2:08 AM EDT OXYGEN THERAPY, MID-ZXSLULjhausc87/02/2025 8:49 PM EDTOXYGEN THERAPY, MID-LEVEL Xeqbkqx7711/23/2024 8:49 PM EDTXR CHEST 1 BIKODS6711/23/2024 6:[address] ABDOMEN AND PELVIS W DHISJCIN69/02/2025 6:31 PM EDT TROP I, HIGH SENSITIVITY 1 NWGJUGFO39/02/2025 6:14 PM EDT TYPE AND ZLCDOQSIER93/02/2025 5:14 PM EDT IRON AND TIBCAdd-On11/23/2024 5:14 PM EDT FERRITINAdd-On11/23/2024 5:14 PM EDT VITAMIN M63Zol-Ys40/02/2025 5:14 PM EDT FOLATEAdd-On11/23/2024 5:14 PM EDT TROPONIN I, HIGH SENSITIVITY 0 PMFWWROV94/02/2025 5:14 PM EDT TROPONIN I, HIGH SENSITIVITY 0 XOQYVSIE19/02/2025 5:14 PM EDT QGEPQDIRKTTJN35/02/2025 5:14 PM EDT YMMWJGYGXZ04/02/2025 5:14 PM EDT LACTATE W/ FQRWEXDAUA07/02/2025 5:14 PM EDT COMPREHENSIVE METABOLIC ERFYFYUVQ07/02/2025 5:14 PM EDT CBC WITH AUTO RIAVNAKBVDSLBUQU02/02/2025 5:14 PM EDT CROSSMATCH YKFPctwawi83/02/2025 5:00 PM EDT ECG 12-UNDXSSEJ89/02/2025 4:41 PM EDTCT CTA ABD AORTA W SXBICPHjhcdzu25/29/2025 1:12 PM EDT Claudication PROVATION UGNOROTJDDTNqfhmxa31/08/2025 10:48 AM EDT from Last 3 Months or Most Recently Relevant to Health Maintenance Results * (ABNORMAL) Protime & INR (11/26/2024 5:12 AM EDT) Only the most recent of3 resultswithin the time period is included. ComponentValueRef RangeTest MethodAnalysis TimePerformed AtPathologist Signature ABBXNWH48.2(H)9.8 - 13.2 sec11/26/2024 5:54 AM [facility]2.3(H)0.9 - 1. 5:54 AM [facility] (Source)Anatomical Location / LateralityCollection Method / VolumeCollection TimeReceived TimeBloodVenous blood / UnknownVenipuncture / Sjjbjux6411/26/2024 5:12 AM EDT11/26/2024 5:42 AM EDT Narrative Authorizing ProviderResult TypeResult StatusRubrandan ARIAS BLOOD ORDERABLESFinal ResultPerforming OrganizationAddressCity/State/ZIP CodePhone Number [facility] [address] [place] [address], * Magnesium (11/26/2024 5:12 AM EDT) Only the most recent of4 resultswithin the time period is included. ComponentValueRef RangeTest MethodAnalysis TimePerformed AtPathologist Signature MAGNESIUM1.81.8 - 2.6 mg/dL11/26/2024 6:07 AM [facility] (Source)Anatomical Location / LateralityCollection Method / VolumeCollection TimeReceived TimeBloodVenous blood / UnknownVenipuncture / Bvclydg1711/26/2024 5:12 AM EDT11/26/2024 5:42 AM EDT Narrative Authorizing ProviderResult TypeResult StatusRachel Todd ENVIRONMENTAL RESEARCH PROJECT MANAGER-CNPLAB BLOOD ORDERABLESFinal ResultPerforming OrganizationAddressCity/State/ZIP CodePhone Number [facility] [address] [place] [address], * (ABNORMAL) Comprehensive metabolic panel (11/26/2024 5:12 AM EDT) Only the most recent of4 resultswithin the time period is included. ComponentValueRef RangeTest MethodAnalysis TimePerformed AtPathologist Signature NFINPX979322 - 146 mmol/L11/26/2024 6:07 AM [facility]PITALPOTASSIUM3.83.5 - 5.0 mmol/L11/26/2024 6:07 AM [facility]OSPITALCHLORIDE10798 - 109 mmol/L11/26/2024 6:07 AM [facility]OSPITALCARBON EBVOCSY7606 - 32 mmol/L11/26/2024 6:07 AM EDT [facility]ANION GAP75 - 15 mmol/L11/26/2024 6:07 AM EDT [facility]BLOOD UREA BOETOMOA44 - 27 mg/dL11/26/2024 6:07 AM [facility]ITALCREATININE1.100.70 - 1.20 mg/dL 11/26/2024 6:07 AM [facility]ITALComment:METHOD TRACEABLE TO IDMS KBHCMDZRHBWZCSW000(H)65 - 99 mg/dL11/26/2024 6:07 AM EDT [facility]CALCIUM8.4(L)8.5 - 10.5 mg/dL11/26/2024 6:07 AM [facility]ITALTOTAL PROTEIN6.66.0 - 8.0 g/dL 11/26/2024 6:07 AM [facility]ITALALBUMIN3.23.2 - 5.3 g/dL11/26/2024 6:07 AM [facility]OSPITALALKALINE JFBZXDIRBFF70899 - 130 U/L11/26/2024 6:07 AM [facility]ITALAST12<=41 U/L11/26/2024 6:07 AM [facility] ALT9<=40 U/L11/26/2024 6:07 AM [facility] BILIRUBIN,TOTAL0.80.3 - 1.2 mg/dL11/26/2024 6:07 AM [facility] HOSPITALEGFR Non-Race Reklgcjwx09>=60 ml/min/1.73sq.m011/26/2024 6:07 AM [facility]ITALComment: eGFR not reported due to non-numeric value for Creatinine. Reported eGFR is based on the CKD-EPI 2020 equation that does not use a race coefficient. Specimen (Source)Anatomical Location / LateralityCollection Method / Volume Collection TimeReceived TimeBloodVenous blood / UnknownVenipuncture / Unknown 11/26/2024 5:12 AM EDT11/26/2024 5:42 AM EDT Narrative Authorizing ProviderResult TypeResult StatusRachel Todd ENVIRONMENTAL RESEARCH PROJECT MANAGER-CNPLAB BLOOD ORDERABLESFinal ResultPerforming OrganizationAddressCity/State/ZIP CodePhone Number [facility] [phone] [place] [address], * (ABNORMAL) CBC auto differential (11/26/2024 5:11 AM EDT) Only the most recent of4 resultswithin the time period is included. ComponentValueRef RangeTest MethodAnalysis TimePerformed AtPathologist Signature WBC8.34 - 11 x10E9/L11/26/2024 6:02 AM [facility]OSPITALRBC Count3.64(L)4.1 - 5.7 X10E12/L11/26/2024 6:02 AM [facility]ITALHemoglobin8.1(L)13 - 17 g/dL11/26/2024 6:02 AM [facility]OS[facility]ITALHematocrit25.6(L)39 - 50 %11/26/2024 6:02 AM [facility]ITALMCV70(L)80 - 100 fL11/26/2024 6:02 AM EDOH[facility] HOSPITALMCH22.1(L)27 - 34 pg11/26/2024 6:02 AM EDOHIOHE[facility]ARDIN [facility] HOSPITALMCHC31.4(L)32 - 36 g/dL11/26/2024 6:02 AM EDOHIOHEALTH HARDIN MEMORIAL HOSPITALRDW21.0(H)11.5 - 15 %11/26/2024 6:02 AM [facility]ITALPlatelet Gbwqy935830 - 450 X10E9/L11/26/2024 6:02 AM EDTPSOUTHWEST GENERAL HEALTH CENTERMPV6.4(L)7 - 12 fL11/26/2024 6:02 AM EDT [facility]Neutrophils %71.3%11/26/2024 6:02 AM EDT [facility]ITALLymphocytes %15.3%11/26/2024 6:02 AM EDT [facility]ITALMonocytes %8.6%11/26/2024 6:02 AM EDT [facility]ALEosinophils %4.4%11/26/2024 6:02 AM EDT [facility]Basophils %0.4%11/26/2024 6:02 AM EDT [facility]ITALNeutrophils Absolute (A)5.91.5 - 6.6 10*3/uL 11/26/2024 6:02 AM EDOHIOHEALTH HARDIN MEMORIAL HOSPITALLymphocytes Absolute1.3 1.0 - 3.5 10*3/uL11/26/2024 6:02 AM [facility] Monocytes Absolute0.70.0 - 0.9 10*3/uL11/26/2024 6:02 AM EDTPSOUTHWEST GENERAL HEALTH CENTEREosinophils Absolute0.40.0 - 0.4 10*3/uL11/26/2024 6:02 AM EDT [facility]Basophils Absolute0.00.0 - 0.2 10*3/uL 11/26/2024 6:02 AM [facility]ITALDifferential Type AUTOMATED WAKCMEAEKRQQ86/05/2025 6:02 AM [facility] Specimen (Source)Anatomical Location / LateralityCollection Method / Volume Collection TimeReceived TimeBloodVenous blood / UnknownVenipuncture / Unknown 11/26/2024 5:11 AM EDT11/26/2024 5:42 AM EDT Narrative Authorizing ProviderResult TypeResult StatusRashayne VELARDERUTLAND REGIONAL [facility] BLOOD ORDERABLESFinal ResultPerforming OrganizationAddressty/State/ZIP CodePhone Number [address] [place] [address], [place] * (ABNORMAL) Hemoglobin and hematocrit, blood (11/25/2024 9:03 PM EDT) Only the most recent of3 resultswithin the time period is included. ComponentValueRef RangeTest MethodAnalysis TimePerformed AtPathologist Signature Hemoglobin8.5(L)13 - 17 g/dL11/25/2024 9:39 PM EDOHIOHEALTH HARDIN MEMORIAL HOSPITALHematocrit27.5(L)39 - 50 %11/25/2024 9:39 PM [facility] SYSTEMpecimen (Source)Anatomical Location / LateralityCollection Method / VolumeCollection TimeReceived TimeBloodVenous blood / Unknown Venipuncture / Jvqcxsr8111/25/2024 9:03 PM EDT11/25/2024 9:11 PM EDT Narrative Authorizing ProviderResult TypeResult StatusJevon Carballo [facility] BLOOD ORDERABLESFinal ResultPerforming OrganizationAddressty/State/ZIP CodePhone Number [address] [place] [address], [place] * Potassium (11/25/2024 1:37 PM EDT)ComponentValueRef RangeTest MethodAnalysis TimePerformed AtPathologist SignaturePOTASSIUM4.43.5 - 5.0 mmol/L11/25/2024 2:06 PM EDVETERANS HEALTH ADMINISTRATIONpecimen (Source)Anatomical Location / LateralityCollection Method / VolumeCollection TimeReceived Time BloodVenous blood / UnknownVenipuncture / Aqsthuw0311/25/2024 1:37 PM EDT 11/25/2024 1:39 PM EDT Narrative Authorizing ProviderResult TypeResult StatusJevon ARIAS BLOOD ORDERABLESFinal ResultPerforming OrganizationAddressCity/State/ZIP CodePhone Number [address] [place] [address], [place] * Transfuse RBC:1 Unit (11/25/2024 12:55 PM EDT) Narrative Authorizing ProviderResult TypeResult StatusStephanie Gerhard ENVIRONMENTAL RESEARCH PROJECT MANAGER-CNPBLOOD TRANSFUSION ORDERABLESFinal Result * (ABNORMAL) Bedside Glucose *Place/Obtain serum glucose if >500 per glucometer. (11/25/2024 11:15AM EDT)ComponentValueRef RangeTest MethodAnalysis Time Performed AtPathologist SignatureBedside Glucose (POC)106(H)65 - 99 mg/dL 11/25/2024 11:18 AM [facility] (Source) Anatomical Location / LateralityCollection Method / VolumeCollection Time Received Timearterial/gsujckhua69/04/2025 11:15 AM EDT11/25/2024 11:18 AM EDT Narrative Authorizing ProviderResult TypeResult Romi Carballo MDPOINT OF CARE TEST ORDERABLESFinal ResultPerforming OrganizationAddressCity/State/ZIP Code Phone Number [address] [place] [address], [place] * SST TOP (11/24/2024 10:02 AM EDT)ComponentValueRef RangeTest MethodAnalysis TimePerformed AtPathologist SignatureExtra TubeAuto Qnblrbbd11/03/2025 12:01 PM [facility] (Source)Anatomical Location / LateralityCollection Method / VolumeCollection TimeReceived TimeBloodVenous blood / Njkviao8311/24/2024 10:02 AM EDT11/24/2024 10:17 AM EDT Narrative Authorizing ProviderResult TypeResult StatusJevon ARIAS BLOOD ORDERABLESFinal ResultPerforming OrganizationAddressCity/State/ZIP CodePhone Number [address] [place] [address], [place] * [place] (11/24/2024 10:02 AM EDT)ComponentValueRef RangeTest Method Analysis TimePerformed AtPathologist SignatureExtra TubeAuto Resulted 11/24/2024 12:01 PM [facility] (Source) Anatomical Location / LateralityCollection Method / VolumeCollection Time Received TimeBloodVenous blood / Jogavsa2211/24/2024 10:02 AM EDT11/24/2024 10:17 AM EDT Narrative Authorizing ProviderResult TypeResult StatusJevon ARIAS BLOOD ORDERABLESFinal ResultPerforming OrganizationAddressCity/State/ZIP CodePhone Number [address] [place] [address], [place] * PST TOP (11/24/2024 10:02 AM EDT)ComponentValueRef RangeTest MethodAnalysis TimePerformed AtPathologist SignatureExtra TubeAuto Mxwcswac04/03/2025 12:01 PM [facility] (Source)Anatomical Location / LateralityCollection Method / VolumeCollection TimeReceived TimeBloodVenous blood / Wsrmpgv7411/24/2024 10:02 AM EDT11/24/2024 10:17 AM EDT Narrative Authorizing ProviderResult TypeResult StatusJevon ARIAS BLOOD ORDERABLESFinal ResultPerforming OrganizationAddressCity/State/ZIP CodePhone Number [address] [place] [address], [place] * (ABNORMAL) Occult blood x 1, stool (11/24/2024 9:17 AM EDT)ComponentValueRef RangeTest MethodAnalysis TimePerformed AtPathologist SignatureFECAL OCCULT BLOODPositive(A)Ecncxbff85/03/2025 9:47 AM EDPar[facility] (Source)Anatomical Location / LateralityCollection Method / VolumeCollection TimeReceived TimeStoolFeces / Ntxojee0511/24/2024 9:17 AM EDT 11/24/2024 9:17 AM EDT Narrative Authorizing ProviderResult TypeResult StatusTaeler Corbin ENVIRONMENTAL RESEARCH PROJECT MANAGER-CNPBODY FLUIDS AND STOOLS ORDERABLESFinal ResultPerforming OrganizationAddressCity/State/ZIP CodePhone Number [facility] [address] [place] [address], * GI Panel(stool pathogen panel) (11/24/2024 8:45 AM EDT)ComponentValueRef Range Test MethodAnalysis TimePerformed AtPathologist SignatureCAMPYLOBACTERNot DetectedNot Rkhbcqdw51/03/2025 3:46 PM [facility] PLESIOMONASNot DetectedNot Bazhzhvz20/03/2025 3:46 PM [facility] LABORATORYSALMONELLANot DetectedNot Hefpmwzt65/03/2025 3:46 PM [facility] LABORATORYVIBRIONot DetectedNot Seopwyuu08/03/2025 3:46 PM [facility] LABORATORYVIBRIO CHOLERAENot DetectedNot Iaaaxzol48/03/2025 3:46 PM [facility]ORATORYY. ENTEROCOLITICANot DetectedNot Zctbggzi36/03/2025 3:46 PM [facility] LABORATORYAGGREGATIVE E COLINot DetectedNot Uqvwazrh82/03/2025 3:46 PM [facility] LABORATORYPATHOGENIC E COLINot DetectedNot Cezevaek78/03/2025 3:46 PM [facility] LABORATORYTOXIGENIC E COLINot DetectedNot Ywwaurce05/03/2025 3:46 PM [facility] LABORATORYSHIGA TOXIN E COLINot DetectedNot Lhtdmbse26/03/2025 3:46 PM EDT [facility] LABORATORYSHIGELLA-E COLINot DetectedNot Detected 11/24/2024 3:46 PM [facility]ORATORYCRYPTOSPORIDIUMNot DetectedNot Ojylqpdw03/03/2025 3:46 PM [facility] CYCLOSPORANot DetectedNot Samdhejz87/03/2025 3:46 PM [facility] SERVICES LABORATORYE HISTOLYTICANot DetectedNot Fqmphwjp06/03/2025 3:46 PM [facility] LABORATORYGIARDIA LAMBLIANot DetectedNot Detected 11/24/2024 3:46 PM [facility] LABORATORYADENOVIRUSNot DetectedNot Avqieehs16/03/2025 3:46 PM [facility] ASTROVIRUSNot DetectedNot Qnrpwzgw57/03/2025 3:46 PM [facility] LABORATORYNOROVIRUSNot DetectedNot Lotitcay79/03/2025 3:46 PM [facility] LABORATORYROTAVIRUS ANot DetectedNot Zuerufva55/03/2025 3:46 PM [facility] LABORATORYSAPOVIRUSNot DetectedNot Detected 11/24/2024 3:46 PM [facility] LABORATORYSpecimen (Source) Anatomical Location / LateralityCollection Method / VolumeCollection Time Received TimeStoolFeces / Ugvaaap3111/24/2024 8:45 AM EDT11/24/2024 9:11 AM EDT Narrative Authorizing ProviderResult TypeResult StatusPerry Sanchez MDBODY FLUIDS AND STOOLS ORDERABLESFinal ResultPerforming OrganizationAddressCity/State/ZIP Code Phone Number [facility] [address] [place] [address], * (ABNORMAL) Urinalysis (11/24/2024 2:08 AM EDT)ComponentValueRef RangeTest MethodAnalysis TimePerformed AtPathologist SignatureCOLORYellowYellow 11/24/2024 2:39 AM EDOHIOHEALTH HARDIN [facility]ORIAL HOSPITALTURBIDITYClearClear 11/24/2024 2:39 AM [facility] SYSTEMPECIFIC GRAVITY1.015 1.003 - 1.6517811/24/2024 2:39 AM EDOHIOHEALTH HARDIN MEMORIAL HOSPITALNITRITE PbedhwqeLsrbprxq05/03/2025 2:39 AM [facility] PH,URINE6.05.0 - 8.509 2:39 AM [facility] LEUKOCYTE DHQEUADPFzhxtypjVxkncuwr63/03/2025 2:39 AM [facility]ITALPROTEINTrace(A)Aeprajcq96/03/2025 2:39 AM EDTPSOUTHWEST GENERAL HEALTH CENTERKETONES (URINE)IcwypeghJwxgyunq88/03/2025 2:39 AM EDT [facility]ITALUROBILINOGEN0.2 eu/dL0.2 eu/dL, 1.0 eu/dL 11/24/2024 2:39 AM EDOHIOHEALTH HARDIN MEMORIAL HOSPITALBILIRUBIN (URINE) DcoxrjddKrhpsotm72/03/2025 2:39 AM [facility] BLOOD/KVRGcjaijmkRjgcklik47/03/2025 2:39 AM [facility] HOSPITALHYALINE CASTS20 - 209 2:39 AM [facility]OSPITALGLUCOSE (URINE)NegativeNegative, 250 mg/dL11/24/2024 2:39 AM EDT [facility]pecimen (Source)Anatomical Location / LateralityCollection Method / VolumeCollection TimeReceived TimeUrineUrine specimen collection, clean catch / Jzmygno1511/24/2024 2:08 AM EDT11/24/2024 2:17 AM EDT Narrative Authorizing ProviderResult TypeResult StatusJemonique Sanchez MDURINE ORDERABLES Final ResultPerforming OrganizationAddressCity/State/ZIP CodePhone Number [facility] [address] [place] [address], * X-ray chest 1 view (11/23/2024 6:43 PM EDT)Anatomical RegionLateralityModality Body, ChestN/AComputed RadiographySpecimen (Source)Anatomical Location / LateralityCollection Method / VolumeCollection TimeReceived Time11/23/2024 6:49 PM EDT Narrative 11/23/2024 6:50 PM EDT XR CHEST 1 VW: 11/23/2024 6:30 PM Clinical: ??Cough and congestion Sitting AP frontal chest is compared with 02/21/2024. Exam limited by low lung volumes. Lung apices are excluded from the exam. Heart size is borderline size. No focal consolidation, large effusion, or pneumothorax. IMPRESSION: * ??No acute disease to limits of this single view exam. ?? * ??Recommend a two-view chest or CT if symptoms persist. Finalized by Rhett Vega MD on 11/23/2024 6:50 PM Procedure Note Rhett Vega MD - 11/23/2024 XR CHEST 1 VW: 11/23/2024 6:30 PM Clinical: Cough and congestion Sitting AP frontal chest is compared with 02/21/2024. Exam limited by low lung volumes. Lung apices are excluded from the exam. Heart size is borderline size. No focal consolidation, large effusion, or pneumothorax. IMPRESSION: * No acute disease to limits of this single view exam. * Recommend a two-view chest or CT if symptoms persist. Finalized by Rhett Vega MD on 11/23/2024 6:50 PM Authorizing ProviderResult TypeResult StatusPerry REED DIAGNOSTIC IMAGING ORDERABLESFinal Result * CT abdomen and pelvis with contrast (11/23/2024 6:31 PM EDT)Anatomical Region LateralityModalityBody, Abdomen, Body CoveraN/AComputed TomographySpecimen (Source)Anatomical Location / LateralityCollection Method / VolumeCollection TimeReceived Time11/23/2024 6:49 PM EDT Narrative 11/23/2024 6:53 PM EDT EXAM: ABDOMEN AND PELVIS CT WITH CONTRAST CLINICAL INFORMATION: distention, GI bleed. TECHNIQUE: CT abdomen and pelvis was performed utilizing 5 mm axial reconstructions following the uneventful administration of nonionic intravenous contrast. Coronal and sagittal reformatted images as well as delayed excretory phase images were obtained and reviewed. Automated exposure control was utilized. COMPARISON: CT dated 10/19/2024 FINDINGS: The limited visualized lung bases demonstrate mild bibasilar atelectasis and/or scarring. The liver is unremarkable. The gallbladder is present. The spleen is normal. The pancreas is unremarkable. Again seen are small renal cysts. There is no collecting system dilatation. The adrenals areunremarkable. There is a left upper quadrant peg tube with the balloon and tip appropriately situated within the lumen of the stomach. There is air and fluid-filled distention of the stomach. There are generalized fluid and air-filled dilated small bowel loops extending to the ileocecal valve, and air-filled distention of the colon. The overall appearances are most compatible with a generalized ileus. A normal appendix is identified. There is no evidence of pneumatosis, free air, free fluid, or abscess. There are calcifications throughout a normal diameter abdominal aorta and iliac arteries. There is incomplete visualization of an occluded left superficial femoral artery, as seen on 10/19/2024. Again seen is an infrarenal IVC filter. IMPRESSION: 1. Redemonstration of a left upper quadrant peg tube with the balloon and tip situated in the lumenof the stomach. 2. Diffuse air and fluid-filled stomach and bowel loops, most compatible with a generalized ileus. There is no convincing evidence of pneumatosis or free air. 3. Partial visualization of an occluded left SFA, as seen on 10/19/2024. 4. Additional chronic and incidental CT findings, as above. All CT scans at this facility use dose modulation, iterative reconstruction, and/or weight based dosing when appropriate to reduce radiation dose to as low as reasonably achievable. Finalized by Jesse Hollins MD on 11/23/2024 6:53 PM Procedure Note Jesse Hollins MD - 11/23/2024 EXAM: ABDOMEN AND PELVIS CT WITH CONTRAST CLINICAL INFORMATION: distention, GI bleed. TECHNIQUE: CT abdomen and pelvis was performed utilizing 5 mm axial reconstructions following the uneventful administration of nonionicintravenous contrast. Coronal and sagittal reformatted images as well asdelayed excretory phase images were obtained and reviewed. Automatedexposure control was utilized. COMPARISON: CT dated 10/19/2024 FINDINGS: The limited visualized lung bases demonstrate mild bibasilar atelectasisand/or scarring. The liver is unremarkable. The gallbladder is present. The spleen isnormal. The pancreas is unremarkable. Again seen are small renal cysts.There is no collecting system dilatation. The adrenals are unremarkable.There is a left upper quadrant peg tube with the balloon and tipappropriately situated within the lumen of the stomach. There is air and fluid-filled distention of the stomach. There are generalized fluid and air-filleddilated small bowel loops extending to the ileocecal valve, and air-filleddistention of the colon. The overall appearances are most compatible witha generalized ileus. A normal appendix is identified. There is no evidenceof pneumatosis, free air, free fluid, or abscess. There are calcifications throughout a normal diameter abdominal aorta and iliac arteries. There is incomplete visualization of an occluded left superficial femoral artery,as seen on 10/19/2024. Again seen is an infrarenal IVC filter. IMPRESSION: 1. Redemonstration of a left upper quadrant peg tube with the balloon andtip situated in the lumen of the stomach. 2. Diffuse air and fluid-filled stomach and bowel loops, most compatiblewith a generalized ileus. There is no convincing evidence of pneumatosisor free air. 3. Partial visualization of an occluded left SFA, as seen on 10/19/2024. 4. Additional chronic and incidental CT findings, as above. All CT scans at this facility use dose modulation, iterativereconstruction, and/or weight based dosing when appropriate to reduceradiation dose to as low as reasonably achievable. Finalized by Jesse Hollins MD on 11/23/2024 6:53 PM Authorizing ProviderResult TypeResult Evy MUELLERG CT ORDERABLES Final Result * Troponin I, High Sensitivity 1 Hour (11/23/2024 6:14 PM EDT)ComponentValueRef RangeTest MethodAnalysis TimePerformed AtPathologist SignatureTROPONIN I, HIGH SENSITIVITY6<21 ng/L11/23/2024 6:50 PM EDOHIOHEALTH HARDIN [facility]OR[facility] Specimen (Source)Anatomical Location / LateralityCollection Method / Volume Collection TimeReceived TimeBloodVenous blood / UnknownVenipuncture / Unknown 11/23/2024 6:14 PM EDT11/23/2024 6:17 PM EDT Narrative Authorizing ProviderResult TypeResult Evy Sanchez MDLAB BLOOD ORDERABLESFinal ResultPerforming OrganizationAddressCity/State/ZIP CodePhone Number [facility] [address] [place] [address], * Troponin I, High Sensitivity 0 Hour (11/23/2024 5:14 PM EDT)ComponentValueRef RangeTest MethodAnalysis TimePerformed AtPathologist SignatureTROPONIN I, HIGH SENSITIVITY6<21 ng/L11/23/2024 5:52 PM EDOHIOHEALTH HARDIN [facility] Specimen (Source)Anatomical Location / LateralityCollection Method / Volume Collection TimeReceived TimeBloodVenous blood / UnknownVenipuncture / Unknown 11/23/2024 5:14 PM EDT11/23/2024 5:25 PM EDT Narrative Authorizing ProviderResult TypeResult StatusPerry ARIAS BLOOD ORDERABLESFinal ResultPerforming OrganizationAddressCity/State/ZIP CodePhone Number [address] [place] [address], [place] * Lactate w/ Reflex (11/23/2024 5:14 PM EDT)ComponentValueRef RangeTest Method Analysis TimePerformed AtPathologist SignatureLACTATE W/REFLEX1.60.4 - 2.0 mmol/L11/23/2024 5:43 PM EDTPROMEDLOS ANGELES METROPOLITAN MEDICAL CENTERpecimen (Source)Anatomical Location / LateralityCollection Method / VolumeCollection TimeReceived TimeBloodVenous blood / UnknownVenipuncture / Bopxhys1911/23/2024 5:14 PM EDT11/23/2024 5:25 PM EDT Narrative [facility] - 11/23/2024 5:43 PM EDT Result did not trigger repeat Lactate, re-order if needed. Authorizing ProviderResult TypeResult StatusPerry ARIAS BLOOD ORDERABLESFinal ResultPerforming OrganizationAddressCity/State/ZIP CodePhone Number [address] [place] [address], [place] * (ABNORMAL) Iron and TIBC (11/23/2024 5:14 PM EDT)ComponentValueRef RangeTest MethodAnalysis TimePerformed AtPathologist HrdhlmwatCBBG45(L)50 - 212 ug/dL 11/24/2024 10:55 AM [facility] CBXVTCUJILYMFMQXOLNZY834187 - 336 mg/dL11/24/2024 10:55 AM [facility] LABORATORYIRON SACOURG800(H)250 - 425 ug/dL11/24/2024 10:55 AM [facility] LABORATORYIRON SATURATION7(L)20 - 50 % YFCQEZNMST33/03/2025 10:55 AM [facility] LABORATORYSpecimen (Source)Anatomical Location / Laterality Collection Method / VolumeCollection TimeReceived TimeBloodVenous blood / UnknownVenipuncture / Niojpnz1111/23/2024 5:14 PM EDT11/23/2024 5:25 PM EDT Narrative Authorizing ProviderResult TypeResult StatusMadison Chiki Meek APRN-CNPLAB BLOOD ORDERABLESFinal ResultPerforming OrganizationAddressCity/State/ZIP Code Phone Number [facility] [address] [place] [address], [place] [phone] * Type and screen(includes indirect shannan) (11/23/2024 5:14 PM EDT)Component ValueRef RangeTest MethodAnalysis TimePerformed AtPathologist SignatureABOA 11/23/2024 6:09 PM EDTPSOUTHWEST GENERAL HEALTH CENTERRHPositive11/23/2024 6:09 PM EDOHIOHEALTH HARDIN MEMORIAL HOSPITALAntibody ScreenNegative 11/23/2024 6:09 PM EDPar[facility] (Source) Anatomical Location / LateralityCollection Method / VolumeCollection Time Received TimeBloodVenous blood / UnknownVenipuncture / Gtvhbgx9411/23/2024 5:14 PM EDT11/23/2024 5:25 PM EDT Narrative Authorizing ProviderResult TypeResult StatusPerry Sanchez MDBLOOD BANK TEST ORDERABLESEdited Result - FinalPerforming OrganizationAddressCity/State/ZIP Code Phone Number [facility] [address] [place] [address], [facility] [address] [place] [address], [place] * Lipase (11/23/2024 5:14 PM EDT)ComponentValueRef RangeTest MethodAnalysis Time Performed AtPathologist EabguciwnBNXXCU6200 - 40 U/L11/23/2024 5:43 PM EDT [facility] (Source)Anatomical Location / LateralityCollection Method / VolumeCollection TimeReceived TimeBloodVenous blood / UnknownVenipuncture / Lajssvf2011/23/2024 5:14 PM EDT11/23/2024 5:25 PM EDT Narrative Authorizing ProviderResult TypeResult StatusPerry Sanchez MDLAB BLOOD ORDERABLESFinal ResultPerforming OrganizationAddressCity/State/ZIP CodePhone Number [facility] [address] [place] [address], [place] * Folate (11/23/2024 5:14 PM EDT)ComponentValueRef RangeTest MethodAnalysis Time Performed AtPathologist SignatureFOLIC ACID10.2>5.8 ng/mL11/24/2024 11:16 AM [facility] LABORATORYSpecimen (Source)Anatomical Location / LateralityCollection Method / VolumeCollection TimeReceived TimeBloodVenous blood / UnknownVenipuncture / Kiyjnax9911/23/2024 5:14 PM EDT11/23/2024 5:25 PM EDT Narrative Authorizing ProviderResult TypeResult StatusMadison Chiki Fantasma ENVIRONMENTAL RESEARCH PROJECT MANAGER-CNPLAB BLOOD ORDERABLESFinal ResultPerforming OrganizationAddressCity/State/ZIP Code Phone Number [facility] [address] [place] [address], * (ABNORMAL) Ferritin (11/23/2024 5:14 PM EDT)ComponentValueRef RangeTest Method Analysis TimePerformed AtPathologist SignatureFERRITIN8(L)24 - 336 ng/mL 11/24/2024 11:13 AM [facility] LABORATORYSpecimen (Source) Anatomical Location / LateralityCollection Method / VolumeCollection Time Received TimeBloodVenous blood / UnknownVenipuncture / Ptttcmu7111/23/2024 5:14 PM EDT11/23/2024 5:25 PM EDT Narrative Authorizing ProviderResult TypeResult StatusMadison Chiki Meek ENVIRONMENTAL RESEARCH PROJECT MANAGER-CNPLAB BLOOD ORDERABLESFinal ResultPerforming OrganizationAddressCity/State/ZIP Code Phone Number [facility] [address] [place] [address], [place] [phone] * Vitamin B12 (11/23/2024 5:14 PM EDT)ComponentValueRef RangeTest MethodAnalysis TimePerformed AtPathologist SignatureVITAMIN [id number] - 914 pg/mL11/24/2024 11:17 AM [facility] LABORATORYSpecimen (Source)Anatomical Location / LateralityCollection Method / VolumeCollection TimeReceived Time BloodVenous blood / UnknownVenipuncture / Yydzmnc4211/23/2024 5:14 PM EDT 11/23/2024 5:25 PM EDT Narrative Authorizing ProviderResult TypeResult StatusMadison Chiki Meek ENVIRONMENTAL RESEARCH PROJECT MANAGER-CNPLAB BLOOD ORDERABLESFinal ResultPerforming OrganizationAddressCity/State/ZIP Code Phone Number [facility] [address] [place] [address], [place] [phone] * Crossmatch RBC:Number of Units: 1 (11/23/2024 5:00 PM EDT)ComponentValueRef RangeTest MethodAnalysis TimePerformed AtPathologist SignatureBlood component xquqB1082R44ZIOIWIXPABARNESVILLE HOSPITALUnit [id number] [facility]Unit ABOAPROMEDMORENO VALLEY COMMUNITY HOSPITALUnit RHNEGBARNESVILLE HOSPITALCrossmatchCompatible [facility] COLUMBUStatus of unitTRANSFUSEDPSOUTHWEST GENERAL HEALTH CENTERExpiration [id number] HOSPITALBB Type Qtefctg3892FYALHUHNWST. MARY MEDICAL CENTERpecimen (Source)Anatomical Location / LateralityCollection Method / VolumeCollection TimeReceived TimeBloodVenous blood / Rulqyqu8311/23/2024 5:00 PM EDT11/23/2024 5:32 PM EDT Narrative Authorizing ProviderResult TypeResult StatusStepcasiemarcio Hennessy ENVIRONMENTAL RESEARCH PROJECT MANAGER-CNPBLOOD BANK PRODUCT ORDERABLESEdited Result - FinalPerforming OrganizationAddress City/State/ZIP CodePhone Number [facility] [address] [place] [address], [place] * ECG 12 lead (11/23/2024 4:41 PM EDT)Specimen (Source)Anatomical Location / LateralityCollection Method / VolumeCollection TimeReceived Time11/23/2024 4:41 PM EDT Narrative Authorizing ProviderResult TypeResult StatusPerry Sanchez MDECG ORDERABLESFinal ResultPerforming OrganizationAddressCity/State/ZIP CodePhone Number [facility] * CT angiogram abdominal aorta with runoff (10/19/2024 1:12 PM EDT)Anatomical RegionLateralityModalityBody, Abdomen, Body CoveraN/AComputed Tomography Specimen (Source)Anatomical Location / LateralityCollection Method / Volume Collection TimeReceived Time10/21/2024 11:11 AM EDT Narrative 10/21/2024 11:51 AM EDT CTA of the abdomen and pelvis and runoff of both lower extremities with 3-D reformats INDICATION: Claudication, peripheral vascular disease. PROCEDURE: Automatic radiation exposure lowering techniques were utilized. ??Following the intravenous injection of 120 mL of Omnipaque 350, a CTA of the abdomen and pelvis and runoff of both lower extremities with 3-D reformats, including ??3 -D Maximum intensity projection reconstructions constructed under [...] Sola Thomas MD on 10/21/2024 11:51 AM Authorizing ProviderResult TypeResult StatusElizabeth ROCKMG CT ORDERABLES Final Result * Colonoscopy Report (06/29/2024 10:48 AM EDT)Specimen (Source)Anatomical Location / LateralityCollection Method / VolumeCollection TimeReceived Time Narrative SYSTEMGENERATED, DOCUMENTATION - 06/29/2024 10:48 AM EDT This order has been auto-finalized for image and report archival in PACs. *For full report details, please reach out to your physician. ??This image is visible to you in MyChart.* Authorizing ProviderResult TypeResult StatusSandeep Stringer DOIMG OR IMG ORDERABLESFinal Result from Last 3 Months or Most Recently Relevant to Health Maintenance Insurance MemberSubscriberPlan / Payer (Effective 2019-Present)Name:Danny Green Relation to Subscriber:SelfName:Danny Green Payer ID:[id number] (NAIC) Group ID:[id number] Type:Not on file Address[address] [address] Advance Directives * Full Code (Latest Code Status on File) Date ActivatedDate InactivatedComments11/24/2024 2:47 AM11/26/2024 2:57 PM * Full Code Date ActivatedDate InactivatedComments06/25/2024 1:40 PM06/29/2024 5:18 PM * Full Code Date ActivatedDate DskfjbjphllFgbmqejr15/27/2024 11:02 PM02/23/2024 8:06 PM * Full Code Date ActivatedDate WzyrejvdvitIemxmimr64/26/2024 9:17 PM02/18/2024 5:23 PM Care Teams Team MemberRelationshipSpecialtyStart DateEnd Date Bryon Castellanos MD [address] [place] [address] [phone] [facility]CP [facility]09/06/23
--- OUTSIDE RECORDS SUMMARY | 2025-01-13 13:00 | XMS_ITS | Clinical Summary ---
Author Organization [facility] Address [address] [place] [address] Care Team Providers Care Engineering Professor Name Role Phone Unavailable Primary Care Provider Unavailabl e Encounters DateTypeDepartmentCare FptqFtwpbajidmw36/16/2025bstract [facility] [address] [place] [phone] Unallocated, Noms MD Christy 11/25/2024bstract [facility] [address] [place] [phone] Unallocated, Noms MD Christy 5Clinisync Result Encounter [facility] External Department Unsolicited Celine Harrison External Data 5Clinisync Result Encounter [facility] External Department Unsolicited Bryon Castellanos MD 5Clinisync Result Encounter [facility] Unsolicited Bryon Castellanos MD from Last 3 Months Social History Tobacco UseTypesPacks/DayYears UsedDateSmoking Tobacco: Never AssessedSex and Gender InformationValueDate RecordedSex Assigned at BirthNot on fileLegal Sex Male05/19/2023 3:32 PM ESTGender IdentityNot on fileSexual OrientationNot on file Plan of Treatment Not on file Procedures Procedure NamePriorityDate/TimeAssociated DiagnosisCommentsSRMCOH PROTHROMBIN TIME INR W/O MLYGHjikkwq07/21/2025 1:15 PM EDT [facility] PROTHROMBIN TIME INR W/O FPOBGrjhnvs90/14/2025 11:44 AM EDT [facility] PROTHROMBIN TIME INR W/O QAFPIrvaorh37/30/2025 11:55 AM EDT from Last 3 Months Results * (ABNORMAL) SRMCOH PROTHROMBIN TIME INR W/O COUM (11/11/2024 1:15 PM EDT) Only the most recent of3 resultswithin the time period is included. ComponentValueRef RangeTest MethodAnalysis TimePerformed AtPathologist Signature PROTHROMBIN TIME23.8(H)9.0 - 11.6 secTBHTBH INR2.45TBHComment: DESIRED INR: 2.0-3.0 CONDITIONS NOT LISTED BELOW 2.5-3.5 FOR PROSTHETIC HEART VALVE REPLACEMENT 2.5-3.5 RECURRENT THROMBOSIS Specimen (Source)Anatomical Location / LateralityCollection Method / Volume Collection TimeReceived Time11/11/2024 1:15 PM EDT11/11/2024 2:04 PM EDT Narrative [facility] - 11/11/2024 2:31 PM EDT [facility] DROP OFF Authorizing ProviderResult TypeResult StatusGeneric External Data Provider CLINISYNCFinal ResultPerforming OrganizationAddressCity/State/ZIP CodePhone Number [facility] from Last 3 Months Insurance
--- OUTSIDE RECORDS SUMMARY | 2025-01-13 13:00 | XMS_ITS | Clinical Summary ---
Author Organization [facility] Address [address], [address] [place] [address] Care Team Providers Care Grails Web Application Developer Name Role Phone Bryon Castellanos MD Primary Care Provider [phone] Allergies No known active allergies Medications MedicationSigDispense QuantityRefillsLast FilledStart DateEnd DateStatus acetaminophen (TYLENOL) 325 MG tablet 2 tablets by PEG Tube route every 4 hours as needed for Pain or Fever05/14/2023 Active Additional Information Patient taking differently:650 mgOralEVERY 4 HOURS PRN, Pain, Fever, Reported on 01/26/2024 doxazosin (CARDURA) 2 MG tablet Take 1 tablet by mouth at gsokfki2205/14/2023ctive Additional Information Patient taking differently: 4 mgOral Nightly,Hold SBP< 100, Reported on 09/07/2024 polyethylene glycol (GLYCOLAX) 17 g packet 1 packet by Per G Tube route daily as needed for Cwvlubjtkzih02/21/2024ctive Additional Information Patient taking differently:17 gOral DAILY, Reported on 09/07/2024 thiamine mononitrate (THIAMINE) 100 MG tablet Take 1 tablet by mouth daily Give through PEG tube05/14/2023ctive Additional Information Patient taking differently:100 mg Oral DAILY,(No instructions reported), Reported on 07/26/2024 Vitamin D (CHOLECALCIFEROL) 25 MCG (1000 UT) TABS tablet 5 tablets by PEG Tube route daily05/14/2023ctive Additional Information Patient taking differently:5,000 UnitsOralDAILY, Reported on 09/07/2024 Handicap Crescencio MISC by Does not apply route Duration: 1 year / Dx: Stroke 1 each 05/14/2023ctive ipratropium 0.5 mg-albuterol 2.5 mg (DUONEB) 0.5-2.5 (3) MG/3ML SOLN nebulizer solution Inhale 3 mLs into the lungs every 4 hours as neededActive aspirin 81 MG EC tablet 1 tablet dailyActive cimetidine (TAGAMET) 300 MG tablet Take 1 tablet by mouth 2 times daily For inappropriate sexual behavior. 09/29/2023ctive ALPRAZolam (XANAX) 0.5 MG tablet Take 1 tablet by mouth in the morning, at noon, and at bedtime. Stop date 10/15/2023ctive bisacodyl 5 MG EC tablet Use as instructed from your physicians office for your colonoscopy prep. 4 tablet 12/24/2023ctive furosemide (LASIX) 20 MG tablet Take 1 tablet by mouth 2 times dailyActive traMADol (ULTRAM) 50 MG tablet Take 1 tablet by mouth every 6 hours as needed for Pain. Max Daily Amount: 200 mgActive citalopram (CELEXA) 10 MG tablet Take 2 tablets by mouth dailyActive levalbuterol (XOPENEX) 1.25 MG/3ML nebulizer solution Take 3 mLs by nebulization every 6 hours as needed for WheezingActive pantoprazole sodium (PROTONIX) 40 MG PACK packet Take 1 packet by mouth 2 times daily (before meals)Active warfarin (COUMADIN) 6 MG tablet Take 7 mg by mouth at bedtimeActive Active Problems ProblemNoted DateDiagnosed DateTracheostomy lrwakjzlch18/07/2024hronic respiratory failure with pednufx5510/05/2023Tracheal stenosis following oshlalyyedep14/12/2024Glottic edema10/02/2023Other tracheostomy complication 10/02/2023ight uuoqnbsrfvc72/19/7823Hrdvdwvpgh98/03/2024Urinary tract infection without drcumtilk11/31/2024Hemiplegia and hemiparesis following cerebral infarction affecting right dominant side04/18/20234341Ousta74/24/2023onstipation 03/15/2023neumonia of right lower lobe due to infectious duxefesx51/23/2023S/P percutaneous endoscopic gastrostomy (PEG) tube btbyelxmt06/23/2023Oropharyngeal aklpexdoz72/22/2023opious oral afiknhooik95/20/2023hronic hyponatremia 03/11/2023Vocal cord cyst03/10/2023cute on chronic respiratory failure with hypoxia and bhsysascioh68/18/2023Laryngeal edema03/04/20237280Qgorfyh35/12/2023cute respiratory failure with hypoxia and mxytssjdrth33/12/2023ontine hemorrhage 03/04/2023Intracerebral hemorrhage, phkqzulqgkuu81/11/2023 Family History Medical HistoryRelationNameCommentsNo Known ProblemsFatherCancerMaternal GrandmotherNo Known ProblemsMotherRelationNameStatusCommentsFatherDeceased Maternal GrandmotherDeceasedMotherDeceased Social History Tobacco UseTypesPacks/DayYears UsedDateSmoking Tobacco: FormerCigarettesPassive Smoke Exposure: NeverSmokeless Tobacco: Never Tobacco Cessation:Counseling Given: Not Answered Alcohol UseStandard Drinks/WeekCommentsNot Currently0 (1 standard drink = 0.6 oz pure alcohol)[facility] UtilitiesAnswerDate RecordedIn the past 12 months has the [employer], gas, oil, or water [employer] threatened to shut off services in your home?No10/02/2023Hunger Vital SignAnswerDate RecordedWithin the past 12 months, you worried that your food would run out before you got the money to buymore. Never true10/02/2023Within the past 12 months, the food you bought just didn't last and you didn't have money to get more.Never true10/02/2023RAPARE - TransportationAnswerDate RecordedIn the past 12 months, has lack of transportation kept you from medical appointments or from getting medications?No 10/02/2023In the past 12 months, has lack of transportation kept you from meetings, work, or from getting things needed for daily living?No10/02/2023 Housing Stability Vital SignAnswerDate RecordedIn the last 12 months, was there a time when you were not able to pay the mortgage or rent on time?No10/02/2023In the last 12 months, how many places have you lived?In the last 12 months, was there a time when you did not have a steady place to sleep or slept in ashelter (including now)?No10/02/2023Interpersonal Safety ([facility] HRSN)Answer Date RecordedHow often does anyone, including family and friends, physically hurt you?Patient unable to mbheoc1304/18/2023How often does anyone, including family and friends, scream or curse at you?Not on file04/18/2023How often does anyone, including family and friends, insult or talk down to you?Not on file 04/18/2023How often does anyone, including family and friends, threaten you with harm?Not on file04/18/2023Food InsecurityAnswerDate RecordedWithin the past 12 months, you worried that your food would run out before you got the money to buy more.Within the past 12 months, the food you bought just didn't last and you didn't have money to get more.Interpersonal Safety Domain Source: IP Abuse ScreeningAnswerDate RecordedPhysical thbmsHhakcx52/18/2025 Verbal ctmeiRwpfdi11/18/2025Emotional nkfwfCiohna32/18/2025Financial abuseDenies 09/08/2024Sexual cgkbmNedsjt61/18/2025Sex and Gender InformationValueDate RecordedSex Assigned at BirthNot on fileLegal NvaCzob6005/03/2012 6:01 PM EST Gender IdentityNot on fileSexual OrientationNot on file Last Filed Vital Signs Vital SignReadingTime TakenCommentsBlood Ohmbgkiy449/4906 2:30 PM EDT Nygbt474209/08/2024 2:30 PM EYWDjpkqemszvs96 ??C (96.8 ??F)09/08/2024 1:30 PM EDT Respiratory Luso748609/08/2024 2:30 PM EDTOxygen Yrnpbbggxm499%09/08/2024 2:30 PM EDTInhaled Oxygen Concentration--Bepkrb72.8 kg (220 lb)09/08/2024 11:00 AM EDT Nazfiu240.3 cm (5' 9 )09/08/2024 11:00 AM EDTBody Mass Index32.4906 11:00 AM EDT Plan of Treatment Health MaintenanceDue DateLast DoneCommentsDepression Cnwojxztfp90/07/1974HIV rxmgvc5809/27/1976Hepatitis C brerhg6209/28/1979Pneumococcal 50+ years Vaccine (1 of 2 - PCV)09/27/19801334Qfaujfplyil93/07/2007Colorectal Cancer Ighgps7309/27/2006 FIT/FOBT: Average risk2006Fecal-DNA (Cologuard): Average risk2006 Sigmoidoscopy/CT anqubddryioz21/07/2007Shingles vaccine (1 of 2)09/28/2011 Respiratory Syncytial Virus (RSV) or age 60 yrs+ (1 - Risk 60-74 years 1-dose series)2021nnual Wellness Visit (Medicare Advantage)03/24/2024Flu vaccine (#1)5004/19/2016, 01/27/2015, 01/17/2014COVID-19 Vaccine (1 - season)2024Diabetes zyzwim8961, 03/03/2023 DTaP/Tdap/Td vaccine (2 - Td or Tdap)Lipids03/05/2028 03/05/2023, 03/03/2023Hepatitis A vaccineAged OutNo longer eligible based on patient's age to complete this topicHepatitis B vaccineAged OutNo longer eligible based on patient's age to complete this topicHib vaccineAged OutNo longer eligible based on patient's age to complete this topicMeningococcal (ACWY) vaccineAged OutNo longer eligible based on patient's age to complete this topicMeningococcal B vaccineAged OutNo longer eligible based on patient's age to complete this topicPolio vaccineAged OutNo longer eligible based on patient's age to complete this topic Procedures Procedure NamePriorityDate/TimeAssociated DiagnosisCommentsHEMOGLOBIN B5ILbvpatt 03/21/2023 3:30 AM EST LIPID PANELSunquest Label Print03/05/2023 5:37 AM EST from Last 3 Months or Most Recently Relevant to Health Maintenance Results * Hemoglobin A1C (03/21/2023 3:30 AM EST)ComponentValueRef RangeTest Method Analysis TimePerformed AtPathologist SignatureHemoglobin A1C5.44.0 - 6.0 % 03/21/2023 3:30 AM ESTMERCY LABORATORIESEstimated Avg Akkcmjk737px/dL 03/21/2023 3:30 AM ESTMERCY LABORATORIESComment: The ADA and AACC recommend providing the estimated average glucose result to permit better patient understanding of their HBA1c result. Specimen (Source)Anatomical Location / LateralityCollection Method / Volume Collection TimeReceived Time03/21/2023 3:30 AM EST Narrative Authorizing ProviderResult TypeResult StatusMorafael North MDCHEMISTRY ORDERABLESFinal ResultPerforming OrganizationAddressCity/State/ZIP CodePhone Number [facility] [address] [place] [address], [facility] [phone] [facility] [address] [place] [address], [facility] [phone] * Lipid Panel (03/05/2023 5:37 AM EST)ComponentValueRef RangeTest MethodAnalysis TimePerformed AtPathologist HmmggcwibEfqfkypkmon125<200 mg/dL03/05/2023 5:37 AM ESTMERCY LABORATORIESComment: Cholesterol Guidelines: <200 Desirable 200-240 ??Borderline >240 Undesirable HDL58>40 mg/dL03/05/2023 5:37 AM ESTMERCY LABORATORIESComment: HDL Guidelines: <40 Undesirable 40-59 ?Borderline >59 Desirable LDL Baedqftffxz7774 - 130 mg/dL03/05/2023 5:37 AM ESTMERCY LABORATORIESComment: LDL Guidelines: <100 Desirable 100-129 ?? Near to/above Desirable 130-159 ?? Borderline >159 Undesirable Direct (measured) LDL and calculated LDL are not interchangeable tests. Chol/HDL Ratio3.2< 5:37 AM ESTMERCY LABORATORIESComment:Triglycerides 73<150 mg/dL03/05/2023 5:37 AM ESTMERCY LABORATORIESComment: Triglyceride Guidelines: <150 Desirable 150-199 ??Borderline 200-499 ??High >499 Very high Based on AHA Guidelines for fasting triglyceride, December 2011. Specimen (Source)Anatomical Location / LateralityCollection Method / Volume Collection TimeReceived TimeBloodBLOOD SPECIMEN / Jhuwlum0503/05/2023 5:37 AM EST 03/05/2023 5:37 AM EST Narrative Authorizing ProviderResult TypeResult StatusBailey Lervick DOCHEMISTRY ORDERABLESFinal ResultPerforming OrganizationAddressCity/State/ZIP CodePhone Number [facility] [address] [place] [address], [facility] [phone] from Last 3 Months or Most Recently Relevant to Health Maintenance Additional Health Concerns InfectionOnset DateLast IndicatedMRSA Comment:Nasal- 03/13/2023/01/2024 Insurance * Guarantor: Carmen Green TypeRelation to PatientDate of BirthPhoneBilling AddressPersonal/OpztjjXxhn08/07/1961 [facility] [address] [place] [phone] on file on file * Guarantor: Carmen Green TypeRelation to PatientDate of [facility]1960 [facility] [address] [place] [phone] * Guarantor: Carmen Green TypeRelation to PatientDate of [facility] Personal/RzdivaXuxq36/[birth year][address] [place] [phone] on file on file * Guarantor: Carmen Green TypeRelation to PatientDate of BirthPhoneBilling AddressPersonal/HhxqtyMtrl69/07/1961 [facility] [address] [place] [phone] Advance Directives * Full Code (Latest Code Status on File) Date ActivatedDate InactivatedComments10/02/2023 1:41 PM10/08/2023 1:26 PM * Full Code Date ActivatedDate InactivatedComments04/18/2023 4:08 PM2 8:19 PMCont code status as per acute but confirm with patient/family * Full Code Date ActivatedDate MeootuljjbiHaohzoxs40/11/2023 2:39 PM03/20/2023 8:56 PM * Full Code Date ActivatedDate ZgrzfjczdcoNxcvxqyr63/11/2023 2:26 PM03/03/2023 2:39 PM * Full Code Date ActivatedDate QeyihchvqerGgvwvemc96/11/2023 2:26 PM03/03/2023 2:26 PM Care Teams Team MemberRelationshipSpecialtyStart DateEnd Date Bryon Castellanos MD [address] [place] [address] PCP - GeneralInternal Medicine10/07/23
--- OUTSIDE RECORDS SUMMARY | 2025-01-13 13:01 | XMS_ITS | Encounter Summary ---
Author Organization [employer] Address [id number] [address] [place] [address] Care Team Providers Care Shroud Line Tier Name Role Phone Bryon Castellanos MD Primary Care Provider [phone] Encounter Details DateTypeDepartmentCare Team (Latest Contact Info)Oizaorpgizi17/16/2025Travel Social History Tobacco UseTypesPacks/DayYears UsedDateSmoking Tobacco: Every DayCigarettes Smokeless Tobacco: NeverAlcohol UseStandard Drinks/KzweDcisdqcrVlj80 (1 standard drink = 0.6 oz pure alcohol)[facility] UtilitiesAnswerDate RecordedIn the past 12 months has the electric, gas, oil, or water company threatened to shut off services in your home?11/25/2024PRAPARE - TransportationAnswerDate RecordedIn the past 12 months, has lack of transportation kept you from medical appointments or from getting medications?11/25/2024In the past 12 months, has lack of transportation kept you from meetings, work, or from getting things needed for daily living?11/25/2024Housing InstabilityAnswerDate RecordedAre you worried or concerned that in the next two months you may not have stable housing that you own, rent or stay in as a part of a household?No11/25/2024 ChildcareAnswerDate CechjdxbVrjxkaymsTjawvhp10/12/2019EmploymentAnswerDate WbrfscbfUkdmjigpgxSkhckzn27/12/2019Hunger ScreeningAnswerDate RecordedWithin the past 12 months we worried whether our food would run out before we got money to buy more.Never True11/25/2024Within the past 12 months the food we bought just didn't last and we didn't have money to get more.Never True11/25/2024Purpose - LifeAnswerDate RecordedPurpose and direction in xlyrJwtipfp42/06/2021ex and Gender InformationValueDate RecordedSex Assigned at BirthNot on fileLegal Sex Male10/27/2014 11:38 AM EDTGender IdentityNot on fileSexual OrientationNot on filedocumented as of this encounter Plan of Treatment DateTypeDepartmentCare Team (Latest Contact Info)Lncsaxcsyev53/17/2026 10:30 AM EDTAppointment [facility] [address] [place] [phone] 07/14/2025 10:00 AM EDTOffice Visit [facility] [address] [place] [address] Karolyn Trevino, PARTS INSPECTOR-WIRELESS RETAIL MANAGER [address] [facility] [address] [place] [address] documented as of this encounter Goals GoalPatient Goal TypeAssociated ProblemsRecent ProgressPatient-Stated?Author Return to Securities Underwriter Care - Long Term Zulma Cardenas RN Note: Evaluation of progress towards goal: Patient is from [facility] in [place] documented as of this encounter Visit Diagnoses Not on filedocumented in this encounter Care Teams Team MemberRelationshipSpecialtyStart DateEnd Date Bryon Castellanos MD [address] [facility] [address] [place] [phone] PCP - GeneralInternal Medicine09/06/23documented as of this encounter
--- OUTSIDE RECORDS SUMMARY | 2025-01-13 13:01 | XMS_ITS | Clinical Summary ---
Author Organization [facility] Address [address] [facility] [place] [address] Phone Care Team Providers Care Threshing Department Supervisor Name Role Phone Unavailable Primary Care Provider Unavailabl e Allergies No known active allergies Medications MedicationSigDispense QuantityRefillsLast FilledStart DateEnd DateStatus acetaminophen (TYLENOL) 325 MG tablet Administer 2 tablets (650 mg total) per tube every 4 (four) hours as needed for Temp > or equal to 101F (38.3C), mild pain or headaches.04/16/2023ctive amLODIPine (NORVASC) 10 MG tablet Administer 1 tablet (10 mg total) per tube in the morning.04/16/2023ctive bisacodyl (DULCOLAX) 10 MG suppository Insert 1 suppository (10 mg total) into the rectum daily as needed for constipation.04/16/2023ctive cholecalciferol (VITAMIN D3) 125 MCG (5000 UT) tablet tablet Administer 1 tablet (5,000 Units total) per tube in the morning.04/16/2023ctive citalopram (CeleXA) 20 MG tablet Administer 1 tablet (20 mg total) per tube in the morning.04/16/2023ctive enoxaparin (LOVENOX) 40 MG/0.4ML solution prefilled syringe Indications:Deep Vein Thrombosis ProphylaxisInject 0.4 mL (40 mg total) under the skin daily Indications: Treatment to Prevent Deep Vein Thrombosis.04/16/2023 Active famotidine (PEPCID) 20 MG tablet Administer 1 tablet (20 mg total) per tube in the morning and 1 tablet (20 mg total) before bedtime.04/16/2023ctive ipratropium-albuterol (DUO-NEB) 0.5-2.5 mg/3 mL nebulizer Inhale 3 mL Every 6 hours as needed. for wheezing.04/16/2023ctive labetalol (NORMODYNE) 200 MG tablet Administer 1 tablet (200 mg total) per tube every 8 (eight) hours.04/16/2023 Active magnesium oxide 400 (240-250 Mg) MG tablet Administer 1 tablet (400 mg total) per tube in the morning.04/16/2023ctive polyethylene glycol (MIRALAX) 17 g packet Administer 17 g per tube in the morning.04/16/2023ctive senna (SENOKOT) 8.6 MG tablet Administer 1 tablet (8.6 mg total) per tube nightly.04/16/2023ctive silodosin (RAPAFLO) 4 MG capsule capsule Administer 2 capsules (8 mg total) per tube nightly.04/16/2023ctive thiamine 100 MG tablet Administer 1 tablet (100 mg total) per tube in the morning.04/16/2023ctive oxyCODONE (ROXICODONE) 10 MG tablet Indications:Acute PainAdminister 1 tablet (10 mg total) per tube every 6 (six) hours as needed for severe pain Indications: Acute Pain. Max Daily Amount: 40 mg 12 tablet 04/18/2023ctive oxyCODONE (ROXICODONE) 5 MG immediate release tablet Indications:Acute PainAdminister 1 tablet (5 mg total) per tube every 6 (six) hours as needed for moderate pain Indications: Acute Pain. Max Daily Amount: 20 mg 12 tablet 04/18/2023ctive Active Problems ProblemNoted DateDiagnosed DatePolyp of vocal cord03/20/2023cute respiratory fznogmy4103/20/20230969Qavcb57/24/2023rug induced udhuszeztron82/23/2023History of placement of gastrostomy tube03/15/2023Infective snmeomlwp67/23/2023 Oropharyngeal warklxxob86/22/2023Excessive hzdtnwgaam42/20/2023hronic waitlshjhaxk45/19/2023Vocal cord cyst03/10/2023cute hypoxemic and hypercapnic respiratory ulofazt1103/04/2023Edema of kstwri0703/04/2023Intrapontine hemorrhage 03/04/20230116Zugvcze90/12/2023Spontaneous cerebral wwlrlfwgaq30/11/2023 Immunizations ImmunizationAdministration DatesNext DuePfizer SARS-CoV-2 Svitxhtepso12/28/2023( Deferred: Not available - NA) Family History Medical HistoryRelationNameCommentsNo Known ProblemsFatherNo Known Problems MotherRelationNameStatusCommentsFatherMother Social History Tobacco UseTypesPacks/DayYears UsedDateSmoking Tobacco: Every DayCigarettes Smokeless Tobacco: Never Tobacco Cessation:Ready to Q uit: Not Asked; Counseling Given: Not Answered Alcohol UseStandard Drinks/WeekCommentsYes0 (1 standard drink = 0.6 oz pure alcohol)Sex and Gender InformationValueDate RecordedSex Assigned at BirthNot on fileLegal IobZsvh11/28/2023 2:11 PM ESTGender IdentityNot on fileSexual OrientationNot on file Last Filed Vital Signs Vital SignReadingTime TakenCommentsBlood Wmaenwcx39/50004/18/2023 1:53 PM EST Yylao843904/18/2023 1:53 PM LNYTkraseqhaza91.2 ??C (97.1 ??F)04/18/2023 8:03 AM ESTRespiratory Huyo814104/18/2023 1:47 PM ESTOxygen Lfcvwhulyh18%04/18/2023 1:47 PM ESTInhaled Oxygen Concentration--Zbbpeq46.2 kg (179 lb)04/18/2023 4:00 AM EST Hmtyjl504.2 cm (5' 7 )03/20/2023 8:48 PM ESTBody Mass Index28.04105/21/2022 8:48 PM EST Plan of Treatment Health MaintenanceDue DateLast DoneCommentsCT Qmvdqlrjucmv25/07/1962Colonoscopy 2Colorectal Cancer Rdpcrzppz08/07/1962FIT-DNA (Cologuard)1961FIT 1961FOBT8766Hjyvxhevlocvj76/07/1962Annual Visit Topic1962MMR Vaccines (1 of 1 - Standard series)1962Hepatitis C Pzuwyrojh70/07/1980 Pneumococcal Vaccine: Pediatrics (0 to 5 years) and At-Risk Patients (6 to 64 Years) (1 of 4 - PCV)1980PSA Test2016DTaP/Tdap/Td Vaccines (2 - Td or Tdap)HIB VaccinesAged OutNo longer eligible based on patient's age to complete this topicHPV VaccinesAged OutNo longer eligible based on patient's age to complete this topicHepatitis A VaccinesAged OutNo longer eligible based on patient's age to complete this topicHepatitis B VaccinesAged OutNo longer eligible based on patient's age to complete this topicIPV Vaccines Aged OutNo longer eligible based on patient's age to complete this topic Meningococcal VaccineAged OutNo longer eligible based on patient's age to complete this topic Additional Health Concerns InfectionOnset DateLast IndicatedMRSA Comment:Nares - 02/2023 Added from external infection. Source: [facility] 03/13/2023 Advance Directives * Full Resuscitation (Latest Code Status on File) Date ActivatedDate YzwqgdluoqkIrdvibtv48/28/2023 4:47 PM04/18/2023 5:50 PM QuestionAnswerCommentsI have discussed this order with the patient or his/her surrogate and have received informed consent.* Yes
--- OUTSIDE RECORDS SUMMARY | 2025-01-13 13:01 | XMS_ITS | Encounter Summary ---
Author Organization [facility] Address [address] [place] [address] Care Team Providers Care Human Anatomy Teacher Name Role Phone Unavailable Primary Care Provider Unavailabl e Encounter Details DateTypeDepartmentCare Team (Latest Contact Info)Osrefbleywd18/16/2025bstract [facility] [id number] [place] [address] [phone] Unallocated, [facility], [address] [place], [place] [phone] Social History Tobacco UseTypesPacks/DayYears UsedDateSmoking Tobacco: Never AssessedSex and Gender InformationValueDate RecordedSex Assigned at BirthNot on fileLegal Sex Male05/19/2023 3:32 PM ESTGender IdentityNot on fileSexual OrientationNot on filedocumented as of this encounter Plan of Treatment Not on file documented as of this encounter Visit Diagnoses Not on filedocumented in this encounter
[2025-01-13 13:50] LABS: INR 1.70; Prothrombin Time 17.1 sec (9.0-11.6)
== END 2025-01-13 12:56 | disposition home or self-care (01) ==
LOC: LAB 12:55
PROVIDERS: PCP Internal Medicine; Visit Provider Internal Medicine
DX: Z79.01 Long term (current) use of anticoagulants (principal)
CPT/HCPCS: 36415; 85610